=== PATIENT | female | born 1945 | race Asian ===

== ENCOUNTER 2017-06-11 13:02 | Inpatient (IN) | payer OTHER ==
[~2017-06-11] VITALS: Ht 165.1 cm; Wt 82.6 kg
--- NOTE | 2017-06-11 15:44 | ED DYSPNEA/ASTHMA COMPLAINT ---
History of Present Illness General Chief Complaint: Dyspnea (COPD, CHF, Other) Stated Complaint: SOB,PALPITATIONS Source: patient Exam Limitations: no limitations Vital Signs & Intake/Output Vital Signs & Intake/Output Vital Signs Date Time Temp Pulse Resp B/P B/P Pulse O2 O2 Flow FiO2 Mean Ox Delivery Rate 06/11 1712 97.1 06/11 1705 97.1 84 22 170/90 95 Nasal 2.0L Cannula 06/11 1608 89 06/11 1440 97.2 72 24 166/81 96 Room Air 06/11 1314 97.7 83 18 170/100 94 Room Air Allergies Coded Allergies: NO KNOWN ALLERGIES (02/12/12) Triage Note: 72 YO FEMALE TO TRIAGE C/O SOB AND PALPITATIONS SINCE YESTERDAY. DENIES CHEST/ABD APIN. PT NOTED WITH SLIGHT WHEEZE. STATES +DRY COUGH. RA SATS 94% Triage Nurses Notes Reviewed? yes Onset: Gradual Duration: day(s): Timing: multiple episodes today Activities at Onset: activity, rest Associated Symptoms: edema, weakness HPI: 72 year old female presents to the ED with shortness of breath for three days. She states that she has it at rest and upon exertion. Nothing makes it better. She endorses palpitations, dry cough, generalized weakness, edema, and recent travel to [place] (05/12/17). She denies orthopnea, chest pain, fever, chills, nightsweats, or history of cancer. She also had a mechnical fall due to loss of balance earlier today and she hurt her right arm. She denies lightheadedness, dizziness, head trauma, or current use of anticogulation. (Jose DE JESUS,Bart) Past History Travel History Traveled to [place] past 21 day No Medical History Any Pertinent Medical History? see below for history Neurological: NONE EENT: NONE Cardiovascular: hypertension Respiratory: NONE Gastrointestinal: NONE Hepatic: NONE Renal: NONE Musculoskeletal: NONE Psychiatric: NONE Endocrine: hypothyroidism Blood Disorders: NONE Cancer(s): NONE AUTO WINDER/Reproductive: NONE Surgical History Surgical History: none (left knee replacement 2015) Psychosocial History Who do you live with Spouse Services at Home None What is your primary language Monalisa Tobacco Use: Never used Daily Tobacco Use Amount/Type: =< 4 Cigarettes daily (none) ETOH Use: denies use Illicit Drug Use: denies illicit drug use Family History Hx Contributory? No (Bart Franklin) Review of Systems Review of Systems Constitutional: Denies: see HPI. EENTM: Reports: no symptoms. Respiratory: Reports: see HPI. Cardiovascular: Reports: see HPI. GI: Denies: abdominal pain, constipation, diarrhea, nausea, vomiting. Genitourinary: Reports: no symptoms. Musculoskeletal: Reports: no symptoms. Skin: Denies: no symptoms. Neurological/Psychological: Reports: no symptoms. Hematologic/Endocrine: Reports: no symptoms. Immunologic/Allergic: Reports: no symptoms. All Other Systems: Reviewed and Negative (Bart Franklin) Physical Exam Physical Exam General Appearance: alert, awake, moderate distress Head: atraumatic Eyes: Bilateral: normal appearance. Ears, Nose, Throat: normal ENT inspection Neck: normal inspection Respiratory: decreased breath sounds, respiratory distress (MILD) Cardiovascular: regular rate/rhythm, edema (1+ b/l pitted edema) Extremities: normal inspection, pedal edema (1+ BILATERAL) Neurologic/Psych: awake, alert, oriented x 3 Skin: intact, normal color Core Measures ACS in differential dx? Yes CVA/TIA Diagnosis No Sepsis Present: No Sepsis Focused Exam Completed? No (Bart Franklin) Progress Differential Diagnosis: asthma, AMI, bronchitis, CHF, COPD, pericarditis, pulmonary embolism, pneumonia, pneumothorax, rib fracture, unstable angina Plan of Care: Orders Procedure Date/time Status CHF Diet 06/12 B Active Misc Message 06/11 1712 Active ED Holding Orders 06/11 1712 Active Admit to inpatient 06/11 1712 Active Vital Signs 06/11 1712 Active Pathway - chart 06/11 1659 Active House Staff 06/11 1659 Active Code Status 06/11 1659 Active ECHOCARDIOGRAM 06/11 1659 Active Patient Data 06/11 1643 Active URINALYSIS 06/11 1642 Active Telemetry/Marketing Proposal Coordinator 06/11 1425 Active TROPONIN LEVEL 06/11 1425 Complete COMPREHENSIVE METABOLIC PANEL 06/11 1425 Complete CBC WITHOUT DIFFERENTIAL 06/11 1425 Complete B-TYPE NATRIURETIC PEP (BNP) 06/11 1425 Complete EKG 06/11 1303 Active TRC EVALUATION (GEN) 06/11 UNK Active Saline Lock 06/11 UNK Active CHF Core Measures 06/11 UNK Active Weight 06/11 UNK Active VTE Mechanical Prophylaxis 06/11 UNK Active Intake & Output 06/11 UNK Active Current Medications Sig/Nai Start time Last Medication Dose Stop Time Status Admin Heparin Sodium 5,000 UNIT Q8 06/11 2199 UNVr (Porcine) Acetaminophen 975 MG ONCE ONE 06/11 1714 AC 06/11 (Tylenol) 06/12 1715 1712 Laboratory Tests 06/11/17 1546: Anion Gap 7, Estimated GFR 21 L, BUN/Creatinine Ratio 10.4, Glucose 93, Calcium 8.5, Total Bilirubin 0.4, AST 14, ALT 20, Alkaline Phosphatase 117, Troponin I < 0.01, Klq-L-Yvtpkmqtzxy Pept 4520 H, Total Protein 6.4, Albumin 2.9 L, Globulin 3.5, Albumin/Globulin Ratio 0.8 L, CBC w Diff NO MAN DIFF REQ, RBC 2.92 L, MCV 88.8, MCH 29.8, MCHC 33.5, RDW 14.4, MPV 7.4, Gran % 67.9, Lymphocytes % 18.3 L, Monocytes % 10.0 H, Eosinophils % 3.1, Basophils % 0.7, Absolute Granulocytes 5.5, Absolute Lymphocytes 1.5, Absolute Monocytes 0.8 H, Absolute Eosinophils 0.3, Absolute Basophils 0.1 Diagnostic Imaging: Viewed by Me: Radiology Read. Discussed w/RAD: Radiology Read. Radiology Impression: PATIENT: ANGELA SAUER PRESENT AGE: 72 PATIENT ACCOUNT NO: [id number] : 43 LOCATION: [facility] ORDERING PHYSICIAN: Bart DE JESUS SERVICE DATE: 06/11/17 EXAM TYPE: RAD - XRY-CHEST XRAY, TWO VIEWS EXAMINATION: XR CHEST CLINICAL INFORMATION: Pain. Shortness of breath. COMPARISON: Chest radiograph dated 02/12/2012. TECHNIQUE: 2 views of the chest were obtained. FINDINGS: The cardiac silhouette is minimally enlarged. There is enlargement of the pulmonary vasculature and cephalization of the pulmonary vasculature. Findings are consistent with interstitial edema. No focal consolidation. No pneumothorax or pleural effusion. IMPRESSION: Interstitial pulmonary edema. No focal consolidation. DICTATED BY: Ramirez Covarrubias MD DATE/TIME DICTATED:06/11/171534 EXECUTIVE BUSINESS COACH:ANDRADE DATE/TIME TRANSCRIBED:06/11/171534 CONFIDENTIAL, DO NOT COPY WITHOUT APPROPRIATE AUTHORIZATION. <Electronically signed in Other Vendor System> SIGNED BY: Ramirez Covarrubias MD 06/11/17 9320 Initial ED EKG: normal sinus rhythm, rate (77) (Bart Franklin) Departure Departure Disposition: STILL A PATIENT Condition: Stable Clinical Impression Primary Impression: Acute exacerbation of CHF (congestive heart failure) Secondary Impressions: Acute kidney injury, Hyponatremia Referrals: Emmie Quintanilla MD (PCP/Family) Departure Forms: Customer Survey General Discharge Information Admission Note Spoke With: Ralph Peres MD Documentation of Exam: Documentation of any treatments & extenuating circumstances including Concerns Regarding Discharge (functional status, medication knowledge or non-compliance, living conditions, etc.) that warrant an admission rather than observation: Patient will require cardiac consultation. Echocardiogram. IV diuresis. Cardiac telemetry. Serial troponins. Medically not safe for discharge at this time. Supplemental oxygen. (Bart Franklin) PA/MANAGER OF SECURITY Co-Sign Statement Statement: ED Attending supervision documentation- [] I saw and evaluated the patient. I have also reviewed all the pertinent lab results and diagnostic results. I agree with the findings and the plan of care as documented in the PA's/MANAGER OF SECURITY's documentation. [X] I have reviewed the ED Record and agree with the PA's/MANAGER OF SECURITY's documentation. [] Additions or exceptions (if any) to the PAs/MANAGER OF SECURITY's note and plan are summarized below: [] (Melissa CASH,Nickolas Leon) Critical Care Note Critical Care Note Critical Care Time: 30-74 min (40) (Bart Franklin)
[2017-06-11 15:55] LABS: ABSOLUTE BASOPHIL COUNT 0.1 /CUMM (0.0-0.2); ABSOLUTE EOSINOPHIL COUNT 0.3 /CUMM (0.0-0.7); ABSOLUTE GRANULOCYTE CT 5.5 /CUMM (1.4-6.5); ABSOLUTE LYMPH COUNT 1.5 /CUMM (1.2-3.4); ABSOLUTE MONOCYTE COUNT 0.8 /CUMM (0.10-0.60); BASOPHIL % 0.7 % (0.0-2.0); EOSINOPHIL % 3.1 % (0-5); GRANULOCYTE % 67.9 % (42.2-75.2); MEAN CORPUSCULAR HGB 29.8 PG (27.0-31.0); MEAN CORPUSCULAR HGB CONC 33.5 G/DL (33.0-37.0); MEAN CORPUSCULAR VOLUME 88.8 FL (81.0-99.0); MEAN PLATELET VOLUME 7.4 FL (7.4-10.4); PLATELET COUNT 235 /CUMM (130-400); RBC DISTRIBUTION WIDTH 14.4 % (11.5-14.5); RED BLOOD CELL CT 2.92 /CUMM (4.20-5.40)
--- NOTE | 2017-06-11 16:08 | RADIOLOGY REPORT ---
EXAMINATION: XR SHOULDER, RIGHT XR ELBOW, RIGHT CLINICAL INFORMATION: Fall, pain COMPARISON: None TECHNIQUE: Four views of the right shoulder. 4 views of the right elbow. FINDINGS: Right shoulder: Glenohumeral alignment appears anatomic. There is cortical irregularity of the lateral scapula near the glenoid which is age-indeterminate. The acromioclavicular joint is intact with mild degenerative change. Right elbow: Alignment across the elbow is anatomic. No acute fracture is seen. There is mild spurring at the lateral epicondyle of the humerus. No significant effusion. IMPRESSION: 1. Right shoulder: Age-indeterminate cortical irregularity of the lateral scapula near the glenoid, which could be chronic though acute fracture is difficult to entirely exclude in the proper clinical setting; acuity may be better assessed with CT. 2. Right elbow: No acute findings.
--- NOTE | 2017-06-11 16:50 | History & Physical ---
Delvin CASH,[facility] 06/11/17 7837: General Information and HPI MD Statement: I have seen and personally examined ANGELA SAUER and documented this H&P. The patient is a 72 year old F who presented with a patient stated chief complaint of [shortness of breath]. Source of Information: patient, family Exam Limitations: clinical condition History of Present Illness: Most of the history is given by the patient's as the patient is short of breath. 72-year-old female with a past medical history of hypertension and hypothyroidism presenting for 4 days of shortness of breath. States that the shortness breath has been getting acutely progressively worse the past 2 days. States that it is worse with exertion. states that the patient is able to sleep flat but she is uncomfortable. States that she is having shortness of breath at rest. Also notes increased swelling of her lower extremities. Complains of dry cough for several months. States that she currently has some headaches associated with palpitations. The patient fell today on her right side and landed on her right upper extremities. States that she did not pass out nor did she hit her head. States that she does have back pain which is chronic. The back pain is improved with palpation. States that she has numbness of her right foot. She denies any fevers, chills, abdominal pain, changes in elimination, loss of function, Allergies/Medications Allergies: Coded Allergies: NO KNOWN ALLERGIES (02/12/12) Home Med list Labetalol HCl 200 MG TABLET 1 TAB PO QAM HEART HEALTH (Reported) Labetalol HCl 100 MG TABLET 1 TAB PO QPM HEART HEALTH (Reported) Levothyroxine Sodium 88 MCG TABLET 1 TAB PO DAILY SUPPLEMENT (Reported) Past History Travel History Traveled to [place] past 21 day No Medical History Neurological: NONE EENT: NONE Cardiovascular: hypertension Respiratory: NONE Gastrointestinal: NONE Hepatic: NONE Renal: NONE Musculoskeletal: NONE Psychiatric: NONE Endocrine: hypothyroidism Blood Disorders: NONE Cancer(s): NONE PARTS DELIVERY DRIVER/Reproductive: NONE Surgical History Surgical History: none (left knee replacement 2015) Past Family/Social History Psychosocial History Services at Home: None ETOH Use: denies use Illicit Drug Use: denies illicit drug use Review of Systems Review of Systems Constitutional: Reports: see HPI. Denies: chills, fever. Cardiovascular: Reports: edema, palpitations. Denies: chest pain. Respiratory: Reports: cough, short of breath. Denies: sputum production. GI: Reports: no symptoms. Genitourinary: Reports: no symptoms. Musculoskeletal: Reports: see HPI, back pain. Exam & Diagnostic Data Last 24 Hrs of Vital Signs/I&O Vital Signs Date Time Temp Pulse Resp B/P B/P Pulse O2 O2 Flow FiO2 Mean Ox Delivery Rate 06/11 1827 96.6 80 20 175/83 96 Nasal 2.0L Cannula 06/11 1751 97.4 06/11 1749 97.4 80 22 177/83 97 Nasal 2.0L Cannula 06/11 1712 97.1 06/11 1705 97.1 84 22 170/90 95 Nasal 2.0L Cannula 06/11 1608 89 06/11 1440 97.2 72 24 166/81 96 Room Air 06/11 1314 97.7 83 18 170/100 94 Room Air Intake & Output 06/11 1600 06/11 0800 06/11 0000 Intake Total 0 Output Total 0 Balance 0 Intake, Oral 0 Output, Urine 0 Patient 180 lb Weight Weight Reported by Patient Measurement Method Physical Exam General Appearance Alert, Oriented X3, Cooperative, Severe Distress, very short shallow breaths. Using accessory muscles. Unable to talk in complete sentences. HEENT PERRLA Cardiovascular Regular Rate, Normal S1, Normal S2 Lungs Clear to Auscultation, Normal Air Movement Abdomen Normal Bowel Sounds, Soft, No Tenderness Extremities 1+ lower extremity edema bilaterally, lower lumbar spinal pain improved with palpation Vascular 2+ radial pulses Assessment/Plan Assessment: 72-year-old female with a past medical history of hypertension and hypothyroidism presenting for 4 days of shortness of breath. #SOB CXR: Interstitial pulmonary edema. No focal consolidation. trop <0.01 ProBNP 4520 -Trend troponins and EKG X2 -Follow-up cardiology consult -f/u att recommendations #Fall Right shoulder: Age-indeterminate cortical irregularity of the lateral scapula near the glenoid, which could be chronic Right elbow: No acute findings. -pain control #htn -cont home labetalol #Hyponatremia NA 127 -cont monitoring BEP #hyperkalemia K5.5 1x kayexalate given -monitor bep #ckd CR 2.3 (at baseline) -cont to monitor. consider nephro consult #anemia? H/H 8.10/03 Baseline 02/07 -monitor for signs of bleeding -follow h/h #back pain Relieved with palpiation -rice sock -pain control #full code #dvt ppx - sc heparin As Ranked By This Provider Problem List: 1. CKD (chronic kidney disease) 2. Hyponatremia 3. Hyperkalemia 4. Fall 5. CHF (congestive heart failure) Core Measures/Misc (11/25) Acute Coronary Syndrome ACS Diagnosis: No Congestive Heart Failure Congestive Heart Failure Diagnosis Yes Cerebrovascular Accident CVA/TIA Diagnosis: No VTE (View Protocol) VTE Risk Factors Acute Medical Illness No Mechanical VTE Prophylaxis d/t Other No VTE Pharm Prophylaxis d/t NA PharmProphylax ordered Sepsis (View protocol) Sepsis Present: No Peter Zamora 06/11/17 1727: Resident Review Statement Resident Statement: examined this patient, discussed with equine internship, agreed with equine internship, discussed with family, reviewed EMR data (avail), discussed with nursing , discussed with case mgmt, reviewed images, amended to note Other Findings: Mrs. Mata is a 72 yo lady with PMHx. of hypothyroidism presented to ED with a c/o of SOB. Patient repeort that she felt SOB over the last 4 days which is getting very sever over the last 2 days, today she was leaning forward on the kitchen, she felt dizzy and fell on the right side with no LOC. She was complaining of cough over the last month, it's dry cough througout the day. Her SOB is at rest and exertion BUT more with exertion, associted with swelling of B/L LE. She has orthopnea but no PND. Patient had rt. knee surgery about 3 years ago, at that time she had heart evaluation with no abnormalities detected, she however, developed paroxysmal A.fib on perioperative period which switched back to SR, never been anticoagulated. She has CKD (Baseline unknown), she was told by her PCP that her creatinine is stable. At home she is only on Synthroid 88mcg daily and Labetalol 200mg at am and 100mg at pm. Will admitt the patient to telemetry floor for new onset CHF, acute on chronic kidney failure, daily weight, strict I's and O's, cardiology consult, she received 40mg IV Lasix at ED, will continue with 40mg IV daily, till the patient evaluated by applications scientist, will repeat labs tomorrow, if worsening kidney function consider nephrology consult (Last time she was evaluated by rn physician office was 1 year ago, she was didn't rememeber her rn physician office name), will repeat troponin and EKG at 9pm. Obtain record from her pcp about her baseline creatinine, will check TSH, T4, lipid panel, CHF diet, fluid restriction as she was noted to have hyponatremia, will give kayexalate for hyperkalemia. SC Heparin for DVT ppx Full code Ralph Peres MD 06/11/175: Attending MD Review Statement Attending Statement Attending MD Statement: examined this patient, discuss w/resident/PA/ABATTOIR MANAGER, agreed w/resident/PA/ABATTOIR MANAGER, reviewed EMR data (avail) Attending Assessment/Plan: Will admit for new onset CHF, IV Lasix, I/O, cardiology consult, echo, continue home meds, DVT PPx
[2017-06-11] MEDS ORDERED: LEVOTHYROXINE88 MCG PO (19:20)
[2017-06-11] MEDS ORDERED: LABETALOL HCL200 M1 PO (19:21)
[2017-06-11] MEDS ORDERED: LABETALOL HCL100 M1 PO (19:21)
[2017-06-12 05:23] LABS: ABSOLUTE BASOPHIL COUNT 0.1 /CUMM (0.0-0.2); ABSOLUTE EOSINOPHIL COUNT 0.3 /CUMM (0.0-0.7); ABSOLUTE LYMPH COUNT 1.4 /CUMM (1.2-3.4); ABSOLUTE MONOCYTE COUNT 0.7 /CUMM (0.10-0.60); BASOPHIL % 1.2 % (0.0-2.0); EOSINOPHIL % 4.9 % (0-5); GRANULOCYTE % 61.4 % (42.2-75.2); HEMATOCRIT 25.1 % (37-47); MEAN CORPUSCULAR HGB 29.6 PG (27.0-31.0); MEAN CORPUSCULAR HGB CONC 32.6 G/DL (33.0-37.0); MEAN CORPUSCULAR VOLUME 90.8 FL (81.0-99.0); MEAN PLATELET VOLUME 7.6 FL (7.4-10.4); PLATELET COUNT 217 /CUMM (130-400); RBC DISTRIBUTION WIDTH 14.8 % (11.5-14.5); RED BLOOD CELL CT 2.77 /CUMM (4.20-5.40); WHITE BLOOD CELL COUNT 6.5 /CUMM (4.8-10.8)
[2017-06-12 06:00] VITALS: BP 136/72
--- NOTE | 2017-06-12 07:17 | PN- Housestaff ---
Delvin CASH,[facility] 06/12/17 0716: Subjective Follow-up For: SOB CHF hyperkalemia fall ckd hyponatremia Tele-Events Since Last Visit: NSR 65-93 Subjective: No acute evnets overnight. States SOB is better. Still haveing backpain. Review of Systems Constitutional: Reports: see HPI. Objective Last 24 Hrs of Vital Signs/I&O Vital Signs Date Time Temp Pulse Resp B/P B/P Pulse O2 O2 Flow FiO2 Mean Ox Delivery Rate 06/12 0903 88 160/88 06/12 0600 99.0 76 20 136/72 94 06/12 0000 Nasal 2.0L Cannula 06/11 2231 78 130/68 06/11 1958 96 Nasal 2.0L Cannula 06/11 195 Nasal 2.0L Cannula 06/11 1827 96.6 80 20 175/83 96 Nasal 2.0L Cannula 06/11 1751 97.4 06/11 1749 97.4 80 22 177/83 97 Nasal 2.0L Cannula 06/11 1712 97.1 06/11 1705 97.1 84 22 170/90 95 Nasal 2.0L Cannula 06/11 1608 89 06/11 1440 97.2 72 24 166/81 96 Room Air 06/11 1314 97.7 83 18 170/100 94 Room Air Intake & Output 06/12 1600 06/12 0800 06/12 0000 Intake Total 110 400 Output Total 780 Balance 110 -380 Intake, IV 10 Intake, Oral 100 400 Output, Urine 780 Patient 187 lb Weight Weight Bed scale Measurement Method Physical Exam General Appearance: Alert, Oriented X3, Cooperative, Mild Distress, mild resp distress, grimacing with movement from chronic back pain Cardiovascular: Regular Rate, Normal S1, Normal S2 Lungs: basilar crackles Abdomen: Normal Bowel Sounds, Soft, No Tenderness Extremities: 1+ LLE, trace RLE Vascular: 2+ radial pulses Current Medications: Current Medications Sig/Nai Start time Last Medication Dose Route Stop Time Status Admin Acetaminophen 975 MG ONCE ONE 06/11 1715 DC 06/11 PO 06/11 1716 1712 Acetaminophen 0 .STK-MED ONE 06/11 1713 DC PO Albuterol Sulfate 3 ML ONCE ONE 06/11 1600 DC 06/11 INH 06/11 1601 1559 Furosemide 40 MG DAILY 06/12 1000 AC 06/12 IV 0903 Furosemide 0 .STK-MED ONE 06/11 1614 DC IV Furosemide 40 MG ONCE ONE 06/11 1600 DC 06/11 IV 06/11 1601 1630 Heparin Sodium 5,000 UNIT Q8 06/11 2200 AC 06/12 (Porcine) SC 0653 Ipratropium Sully 2.5 ML ONCE ONE 06/11 1600 DC 06/11 INH 06/11 1601 1559 Labetalol HCl 200 MG QAM 06/12 1000 AC 06/12 PO 0903 Labetalol HCl 100 MG QPM 06/11 2200 AC 06/11 PO 2231 Levothyroxine Sodium 0.088 MG DAILY 06/12 1000 AC 06/12 PO 0902 Nitroglycerin 0 .STK-MED ONE 06/11 1714 DC TOP Nitroglycerin 0 .STK-MED ONE 06/11 1628 DC SL Nitroglycerin 0.4 MG ONCE ONE 06/11 1615 DC 06/11 SL 06/11 1616 1630 Nitroglycerin 0.5 GM ONCE ONE 06/11 1615 DC 06/11 TOP 06/11 1616 1712 Ondansetron HCl 0 .STK-MED ONE 06/11 1627 DC .ROUTE Ondansetron HCl 4 MG ONCE ONE 06/11 1615 DC 06/11 IV 06/11 1616 1630 Sodium Polystyrene 0 .STK-MED ONE 06/11 1811 DC Sulfonate .ROUTE Sodium Polystyrene 60 ML ONCE ONE 06/11 1800 DC 06/11 Sulfonate PO 06/11 1801 1809 Last 24 Hrs of Lab/Kade Results Last 24 Hrs of Labs/Mics: Laboratory Tests 06/12/17 0420: Troponin I < 0.01 06/12/17 0420: Anion Gap 10, Estimated GFR 20 L, BUN/Creatinine Ratio 10.4, CBC w Diff NO MAN DIFF REQ, RBC 2.77 L, MCV 90.8, MCH 29.6, MCHC 32.6 L, RDW 14.8 H, MPV 7.6, Gran % 61.4, Lymphocytes % 21.5, Monocytes % 11.0 H, Eosinophils % 4.9, Basophils % 1.2, Absolute Granulocytes 4.0, Absolute Lymphocytes 1.4, Absolute Monocytes 0.7 H, Absolute Eosinophils 0.3, Absolute Basophils 0.1 06/11/172211: Troponin I < 0.01 06/11/17 1700: Urinalysis LIGHT H, Urine Color YEL, Urine Clarity CLEAR, Urine pH 6.0, Ur Specific [place] 1.015, Urine Protein >=300 H, Urine Ketones NEG, Urine Nitrite NEG, Urine Bilirubin NEG, Urine Urobilinogen 0.2, Ur Leukocyte Esterase NEG, Ur Microscopic SEDIMENT EXAMINED, Urine RBC 1-3, Urine WBC 1-3 H, Ur Epithelial Cells MOD H, Urine Bacteria RARE H, Urine Mucus FEW, Urine Hemoglobin SMALL H , Urine Glucose NEG 06/11/17 1546: Anion Gap 7, Estimated GFR 21 L, BUN/Creatinine Ratio 10.4, Glucose 93, Calcium 8.5, Total Bilirubin 0.4, AST 14, ALT 20, Alkaline Phosphatase 117, Troponin I < 0.01, Pko-B-Ynntaclmumk Pept 4520 H, Total Protein 6.4, Albumin 2.9 L, Globulin 3.5, Albumin/Globulin Ratio 0.8 L, TSH 4.650 H, Thyroxine (T4) 7.8, CBC w Diff NO MAN DIFF REQ, RBC 2.92 L, MCV 88.8, MCH 29.8, MCHC 33.5, RDW 14.4 , MPV 7.4, Gran % 67.9, Lymphocytes % 18.3 L, Monocytes % 10.0 H, Eosinophils % 3.1, Basophils % 0.7, Absolute Granulocytes 5.5, Absolute Lymphocytes 1.5, Absolute Monocytes 0.8 H, Absolute Eosinophils 0.3, Absolute Basophils 0.1 Assessment/Plan Assessment: 72-year-old female with a past medical history of hypertension and hypothyroidism presenting for 4 days of shortness of breath. #SOB CXR: Interstitial pulmonary edema. No focal consolidation. trop <0.01x3 ProBNP 4520 TSH 4.65 (high), T4 7.8 -dopppler u/s given hx of recent travel, acute onset of chf/sob, disproportionate LE edema -cont IV lasix -f/u echo -f/u cards consult #anemia? vs acute blood loss H/H 8.726 -> 8.2/25.1 Baseline 02/07 Fe 36,TBC 259, Ferritin 122 -f/u B12, folate, reticulocyte count, serum haptoglobin, epo level -type and cross -hemooccult -monitor for signs of bleeding -follow h/h #Fall Right shoulder: Age-indeterminate cortical irregularity of the lateral scapula near the glenoid, which could be chronic Right elbow: No acute findings. -pain control #ckd CR 2.4 (at baseline) -Renal ultrasound was ordered however received call from radiology stating that she had a renal ultrasound done yesterday. Impression was increased echogenicity of bilateral kidneys with cortical thinning -Obtain renal ultrasound images -f/u 24-hour urine, spot protein/creatinine -Follow-up lipid panel -Follow-up nephrology consult -cont to monitor. consider nephro consult #htn -Stop Lasix -Start hydralazine 3 times a day, nitroglycerin patch -cont home labetalol #Hyponatremia NA 127 -> 129 -cont monitoring BEP #hyperkalemia K5.5 ->4.9 1x kayexalate given History of hyperkalemia from ESTHELA inhibitor -monitor bep -We'll not start ESTHELA inhibitor given her history #back pain Chronic, relieved with palpiation -rice sock -pain control #full code #dvt ppx - sc heparin Problem List: 1. Shortness of breath 2. CHF (congestive heart failure) 3. Fall 4. Hyperkalemia 5. Hyponatremia 6. CKD (chronic kidney disease) 7. Anemia Pain Ratin Pain Location: low back Pain Goal: Pain 4 or less Pain Plan: pain pathway Tomorrow's Labs & Rationales: cbc bep Ralph Peres MD 06/12/17 1216: Attending MD Review Statement Attending Statement Attending MD Statement: examined this patient, discuss w/resident/PA/COSTUME MISTRESS, agreed w/resident/PA/COSTUME MISTRESS, reviewed EMR data (avail) Attending Assessment/Plan: 72F PMH HTN, hypothyroidism, CKD stage 4 presenting with several days of progressive shortness of breath, with mild bilateral leg swelling and pulmonary vascular congestion on CXR, found to have new onset CHF. Patient feels better today. She feels as if her breathing is better. She has trace LE edema, R>L, and bibasilar crackles on exam. She had mild diuresis yesterday. 1. New onset acute CHF 2. Dyspnea on exertion 3. CKD Stage 4 Plan - Continue on telemetry - Obtain LE doppler to rule out DVT (patient had also traveled to [place] recently ) - Continue Lasix 40mg IV BID - Monitor electrolytes and renal function - Cardiology and nephrology consults - Obtain spot urine protein/creatinine - Renal ultrasound - Echocardiogram - Continue Labetalol - Start Lisinopril 2.5mg daily - DVT PPx
--- NOTE | 2017-06-12 12:17 | Admission Certification ---
Admission Certification Certification Statement - As attending physician, I certify that at the time of - admission, based on clinical presentation, severity of - symptoms, need for further diagnostic testing and - therapeutic interventions, and risk of adverse outcomes - without in-hospital treatment, in my clinical assessment, - this patient requires an acute hospital stay for a minimum - of two nights or longer. I have also considered psychsocial - factors such as support system, advanced age, financial - issues, cognitive issues, and failed out-patient treatments, - past re-admission history, safety of patient, and lack of - compliance as applicable. Specific rationale supporting this admission is: New onset acute CHF with worsening renal function
[2017-06-12 13:52] VITALS: BP 164/70
--- NOTE | 2017-06-12 14:08 | Cons- Cardiology ---
General Information and HPI Consulting Request Date of Consult: 06/12/17 Requested By: Ralph Peres MD History of Present Illness: Adolfo is a 72 year old female with history of hypertension who first noticed some shortness of breath about one week ago. This past Saturday, her breathing became much worse and yesterday she presented to the [facility] ER upon the advice of her primary care physician. The patient reports weakness and a non -productive cough with wheezing. She denies orthopnea. At her baseline, she can walk at a normal pace and do her housework without experiencing any chest pain, pressure or tightness. Higher levels of activity will result in palpitations. The patient was hypertensive on admission with an elevated creatinine, low sodium and severe anemia. Her chest X-ray showed some pulmonary vascular congestion. Allergies/Medications Allergies: Coded Allergies: NO KNOWN ALLERGIES (02/12/12) Home Med List: Labetalol HCl 200 MG TABLET 1 TAB PO QAM HEART HEALTH (Reported) Labetalol HCl 100 MG TABLET 1 TAB PO QPM HEART HEALTH (Reported) Levothyroxine Sodium 88 MCG TABLET 1 TAB PO DAILY SUPPLEMENT (Reported) Review of Systems Review of Systems: Knee discomfort. Past History Travel History Traveled to [place] past 21 day No Medical History Blood Transfusion Hx: No Neurological: NONE EENT: NONE, cataracts Cardiovascular: AFIB, hypertension Respiratory: NONE Gastrointestinal: NONE Hepatic: NONE Renal: CKD Musculoskeletal: fracture, rheumatoid arthritis Psychiatric: NONE Endocrine: hypothyroidism Blood Disorders: NONE Cancer(s): NONE SPECIMEN ACCESSIONER/Reproductive: NONE Surgical History Surgical History: LEFT KNEE REPL. (left knee replacement 2014) Family History Family History Reviewed? Mother: CHF after age 60 Psychosocial History Where Do You Live? Home Services at Home: None Smoking Status: Never Smoked ETOH Use: denies use Illicit Drug Use: denies illicit drug use Exam & Diagnostic Data Vital Signs and I&O Vital Signs Date Time Temp Pulse Resp B/P B/P Pulse O2 O2 Flow FiO2 Mean Ox Delivery Rate 06/12 1344 95 Nasal 2.0L Cannula 06/12 0903 88 160/88 06/12 0800 94 Nasal 2.0L Cannula 06/12 06 99.0 76 20 136/72 94 06/12 0000 Nasal 2.0L Cannula 06/11 2231 78 130/68 06/11 1957 96 Nasal 2.0L Cannula 06/12 1951 Nasal 2.0L Cannula 06/11 1827 96.6 80 20 175/83 96 Nasal 2.0L Cannula 06/11 1751 97.4 06/11 1749 97.4 80 22 177/83 97 Nasal 2.0L Cannula 06/11 1712 97.1 06/11 1705 97.1 84 22 170/90 95 Nasal 2.0L Cannula 06/11 1608 89 06/11 1440 97.2 72 24 166/81 96 Room Air Intake & Output 06/12 1600 06/12 0806/12 0000 06/11 1600 06/11 0800 06/11 0000 Intake Total 110 400 0 Output Total 780 0 Balance 110 -380 0 Intake, IV 10 Intake, Oral 100 400 0 Output, Urine 780 0 Patient 187 lb 180 lb Weight Weight Bed scale Reported by Patient Measurement Method Physical Exam: General: WD/WN female in NAD; alert and oriented x 3 HEENT: NC/AT, PERRL, EOMI Neck: no JVD, no carotid bruit Heart: RRR with 2/6 systolic murmur Lungs: scant crackles at the bases bilaterally Abdomen: soft, obese, NT, +ve bowel sounds Extremities: no edema Assessment/Plan Assessment/Plan * This patient has shortness of breath that is likely multifactorial and due to a combination of anemia, uncontrolled hypertension and a cough and wheezing that is likely related to a viral syndrome. If there is some decompensated CHF it is minor and I would be reluctant to overdiurse this patient in the setting of her worsening renal function. I suspect that the renal insufficiency is due to longstanding hypertension and I would recommend a nephrology consult. Obtain a 24 hour urine to assess for protein. Check a lipid profile. * In regard to the patient's renal insufficiency and hypertension I would begin hydralazine 25mg TID and titrate up as necessary to decrease afterload and lower blood pressure. Continue Labetolol 200mg BID. Add a NTG patch at 0.4mg/hour to decreased pre-load. No diuretic for now although it will likely be helpful once the patient's creatinine returns to her baseline. * I suspect that this patient has anemia related to her renal dysfunction. She should have a complete anemia workup to assess the cause of her anemia which may well be a cause of her CHF. Please check irons studies, B12, folate, serum haptoglobin and a reticulocyte count. Follow her CBC. * Will follow up on her echo results. Consult Acknowledgment - Thank you for your consult request.
--- NOTE | 2017-06-12 15:39 | ULTRASOUND REPORT ---
EXAMINATION: US TRIPLEX LOWER EXTREMITY, LEFT CLINICAL INFORMATION: Left lower extremity swelling. COMPARISON: None TECHNIQUE: Color-flow triplex imaging with spectral analysis and compression Doppler were performed on the lower extremity. FINDINGS: Respiratory variation, normal compression and augmented flow are noted throughout the lower extremity. The visualized common femoral vein, superficial femoral vein, profunda femoral vein, popliteal vein and midcalf peroneal and posterior tibial venous segments show no evidence of deep venous thrombosis. There is no Humphrey's cyst. IMPRESSION: No evidence of deep venous thrombosis involving the lower extremity.
--- NOTE | 2017-06-12 18:50 | ECHOCARDIOGRAM REPORT ---
ANGELA SAUER Age: 72 : 1945 Gender: F Exam Date: 06/11/2017 18:54 Exam Location: ER Ht (in): 65 Wt (lb): 180 BSA: 1.96 BP: 175 / 83 Ordering Physician: Peter Benedict MD Referring Physician: Peter Benedict MD Technologist: Lidia Casas RDCS Room Number: [id number] Indications: SHORTNESS OF BREATH Rhythm: Sinus Technical Quality: good FINDINGS Left Ventricle Normal left ventricular size with mild left ventricular hypertrophy. Normal systolic function with no obvious regional wall motion abnormalities. Normal left ventricular diastolic filling pattern for age. The ejection fraction is visually estimated at 60%. Right Ventricle The right ventricle is normal in size and function. Right Atrium The right atrium is normal in size. Left Atrium The left atrium is normal in size. The interatrial septum is intact. Mitral Valve The mitral valve is normal in structure and function. There is mild to moderate mitral regurgitation. Aortic Valve Structurally normal aortic valve without significant sclerosis or stenosis. There is mild aortic regurgitation. Tricuspid Valve The tricuspid valve is normal in structure and function. There is mild to moderate tricuspid regurgitation. Pulmonary artery systolic pressure is mildly elevated to 36mmHg. Pulmonic Valve Structurally normal pulmonic valve. There is trace pulmonic regurgitation. Pericardium Normal pericardium without effusion. No pleural effusion. Great Vessels Normal aortic root dimension. The aortic arch and great vessels are well seen and are normal. CONCLUSIONS 1. Normal EF of 60%. 2. Mild left ventricular hypertrophy. 3. Mild to moderate mitral regurgitation. 4. Mild to moderate tricuspid regurgitation. 5. Mild aortic insufficiency. 6. Trace pulmonic insufficiency. Mendel Parr M.D. (Electronically Signed) Final Date: 12 June 2017 18:50 MEASUREMENTS (Male / Female) Normal Values 2D ECHO LV Diastolic Diameter PLAX 3.5 cm 4.2 - 5.9 / 3.9 - 5.3 cm LV Systolic Diameter PLAX 2.3 cm 2.1 - 4.0 cm LV Fractional Shortening PLAX 34.3 % 25 - 46 % LV Ejection Fraction 2D Teich 64.4 % IVS Diastolic Thickness 1.4 cm LVPW Diastolic Thickness 1.4 cm LV Relative Wall Thickness 0.8 RV Internal Dim ED PLAX 1.8 cm 1.9 - 3.8 cm LVOT Diameter 2.0 cm Aortic Root Diameter 3.1 cm LA Systolic Diameter LX 4.1 cm 3.0 - 4.0 / 2.7 - 3.8 cm LA Volume 39.0 cm 18 - 58 / 22 - 52 cm Ascending Aorta Diameter 3.0 cm DOPPLER AV Peak Velocity 152.0 cm/s AV Peak Gradient 9.2 mmHg AV Mean Velocity 103.0 cm/s AV Mean Gradient 5.0 mmHg AV Velocity Time Integral 34.4 cm AI Deceleration Catron 432.0 cm/s AI Peak Velocity 412.0 cm/s AI Pressure Half Time 279.0 ms AI Peak Gradient 67.9 mmHg LVOT Peak Velocity 127.0 cm/s LVOT Peak Gradient 6.5 mmHg LVOT Mean Velocity 85.8 cm/s LVOT Mean Gradient 3.0 mmHg LVOT Velocity Time Integral 29.3 cm LVOT Stroke Volume 92.0 cm AV Area Cont Eq vti 2.7 cm AV Area Cont Eq pk 2.6 cm MV Peak Velocity 153.0 cm/s MV Peak Gradient 9.4 mmHg MV Mean Velocity 90.9 cm/s MV Mean Gradient 4.0 mmHg Mitral E Point Velocity 133.0 cm/s Mitral A Point Velocity 133.0 cm/s Mitral E to A Ratio 1.0 MV PHT Velocity 164.0 cm/s MV Deceleration Catron 680.0 cm/s MV Pressure Half Time 72.4 ms MV Area PHT 3.0 cm MV Deceleration Time 211.0 ms TR Peak Velocity 293.0 cm/s TR Peak Gradient 34.3 mmHg Right Atrial Pressure 5.0 mmHg Pulmonary Artery Systolic Pressu 39.3 mmHg Right Ventricular Systolic Press 39.3 mmHg PV Peak Velocity 124.0 cm/s PV Peak Gradient 6.2 mmHg PV Mean Velocity 87.6 cm/s PV Mean Gradient 4.0 mmHg PV Velocity Time Integral 31.3 cm LV E' Lateral Velocity 6.8 cm/s Mitral E to LV E' Lateral Ratio 19.6 LV E' Septal Velocity 8.0 cm/s Mitral E to LV E' Septal Ratio 16.6
[2017-06-12 22:24] VITALS: BP 124/76
[2017-06-13 06:48] VITALS: BP 122/74
[2017-06-13 08:06] LABS: ABSOLUTE BASOPHIL COUNT 0.1 /CUMM (0.0-0.2); ABSOLUTE GRANULOCYTE CT 4.1 /CUMM (1.4-6.5); ABSOLUTE LYMPH COUNT 1.2 /CUMM (1.2-3.4)
[2017-06-13 08:43] LABS: ABSOLUTE EOSINOPHIL COUNT 0.3 /CUMM (0.0-0.7); ABSOLUTE MONOCYTE COUNT 0.7 /CUMM (0.10-0.60); BASOPHIL % 0.9 % (0.0-2.0); GRANULOCYTE % 63.8 % (42.2-75.2); HEMATOCRIT 22.1 % (37-47); MEAN CORPUSCULAR HGB CONC 33.4 G/DL (33.0-37.0); MEAN CORPUSCULAR VOLUME 89.9 FL (81.0-99.0); MEAN PLATELET VOLUME 7.8 FL (7.4-10.4); PLATELET COUNT 226 /CUMM (130-400); RBC DISTRIBUTION WIDTH 14.1 % (11.5-14.5); RED BLOOD CELL CT 2.46 /CUMM (4.20-5.40); WHITE BLOOD CELL COUNT 6.4 /CUMM (4.8-10.8)
--- NOTE | 2017-06-13 09:20 | PN- Housestaff ---
Delvin CASH,[facility] 06/13/17 0920: Subjective Follow-up For: SOB CHF hyperkalemia fall ckd hyponatremia Tele-Events Since Last Visit: NSR 6374 Tachycardic episode to 170s PACs Subjective: No acute events overnight. Patient states that she had very bad cough last night and some wheezing. Review of Systems Constitutional: Reports: see HPI. Objective Last 24 Hrs of Vital Signs/I&O Vital Signs Date Time Temp Pulse Resp B/P B/P Pulse O2 O2 Flow FiO2 Mean Ox Delivery Rate 06/13 1431 97.6 69 16 160/82 93 Nasal 1.0L Cannula 06/13 1206 92 Nasal 1.0L Cannula 06/13 1200 72 140/64 06/13 1101 72 140/64 06/13 0800 94 Nasal 1.0L Cannula 06/13 0648 98.0 72 18 122/74 93 06/12 2224 97.6 75 20 124/76 95 06/12 2156 80 124/76 06/12 2155 80 124/76 06/12 2041 Nasal 1.0L Cannula 06/12 1600 95 Nasal 1.0L Cannula 06/12 1548 98.2 80 19 164/70 Intake & Output 06/13 1600 06/13 0800 04/ 0000 Intake Total 500 360 240 Output Total 100 650 325 Balance 400 -290 -85 Intake, Oral 500 360 240 Number 0 Bowel Movements Output, Urine 100 650 325 Patient 183 lb Weight Physical Exam General Appearance: Alert, Oriented X3, Cooperative Cardiovascular: Regular Rate, Normal S1, Normal S2 Lungs: Clear to Auscultation, Normal Air Movement Abdomen: diffuse lower abdominal pain Extremities: b/l lower extremity 1+ edema Vascular: 2+ radial pulses Current Medications: Current Medications Sig/Nai Start time Last Medication Dose Route Stop Time Status Admin Acetaminophen 500 MG Q6P PRN 06/12 1545 AC 06/13 PO 0909 Azithromycin 500 MG 1500 06/13 1500 AC Dextrose/Water 250 ML IV 06/17 1559 Benzonatate 100 MG TID 06/13 1000 AC 06/13 PO 1100 Ferrous Sulfate 325 MG 1400 06/12 1400 AC 04/05 PO 1400 Guaifenesin/Codeine 10 ML Q4P PRN 06/13 0245 AC 04/05 Phosphate PO 1109 Heparin Sodium 5,000 UNIT Q8 06/11 2200 AC 06/13 (Porcine) SC 1400 Hydralazine HCl 25 MG TID 06/12 1600 DC 06/12 PO 2155 Labetalol HCl 200 MG QAM 06/12 1000 AC 06/13 PO 1101 Labetalol HCl 100 MG QPM 06/11 2200 AC 06/12 PO 2156 Levothyroxine Sodium 0.088 MG DAILY 06/12 1000 AC 06/13 PO 0928 Lidocaine 1 PAT Q24H 06/12 1535 AC 06/12 EXT 1704 Lisinopril 2.5 MG DAILY 06/13 1000 AC 06/13 PO 1200 Nitroglycerin 0.4 MG Q24H 06/12 1600 AC 06/12 TOP 1548 Non-Formulary 1 UNIT 0730,1130,1630 06/13 1630 AC Medication ANY Patient Medication 1 ED ONE ONE 06/13 09 DC 06/13 Teaching ED 06/13 0931 1201 Prednisone 20 MG DAILY 06/13 1000 AC 06/13 PO 06/15 2300 1201 Last 24 Hrs of Lab/Kade Results Last 24 Hrs of Labs/Mics: Laboratory Tests 06/13/17 1050: Urinalysis LIGHT H, Urine Color YEL, Urine Clarity CLEAR, Urine pH 6.0, Ur Specific Polk 1.015, Urine Protein 100 H, Urine Ketones NEG, Urine Nitrite NEG, Urine Bilirubin NEG, Urine Urobilinogen 0.2, Ur Leukocyte Esterase SMALL H , Ur Microscopic SEDIMENT EXAMINED, Urine RBC RARE, Urine WBC 15-25 H, Ur Epithelial Cells FEW, Urine Bacteria FEW H, Urine Mucus FEW, Urine Hemoglobin TRACE-LYSED, Urine Glucose NEG 06/13/17 0652: Anion Gap 9, Estimated GFR 17 L, BUN/Creatinine Ratio 10.7, Triglycerides 110, Cholesterol 167, LDL Cholesterol, Calc 94, HDL Cholesterol 51, Cholesterol/HDL Ratio 3, CBC w Diff NO MAN DIFF REQ, RBC 2.46 L, MCV 89.9, MCH 30.0, MCHC 33.4, RDW 14.1, MPV 7.8, Gran % 63.8, Lymphocytes % 18.8 L, Monocytes % 11.5 H, Eosinophils % 5.0, Basophils % 0.9, Absolute Granulocytes 4.1, Absolute Lymphocytes 1.2, Absolute Monocytes 0.7 H, Absolute Eosinophils 0.3, Absolute Basophils 0.1 Microbiology 06/13 1050 NASOPHARYN: Influenza Virus A & B Rapid Smear - COMP Assessment/Plan Assessment: 72-year-old female with a past medical history of hypertension and hypothyroidism presenting for 4 days of shortness of breath. #SOB 2/2 to most likely CHF CXR: Interstitial pulmonary edema. No focal consolidation. trop <0.01x3 ProBNP 4520 TSH 4.65 (high), T4 7.8 Doppler ultrasound negative for DVT Rapid flu negative -Continue Tessalon Perles for cough -Prednisone 20 and asked 3 days -Follow-up repeat chest x-ray -Discontinue Lasix for worsening CKD -Start azithromycin 5 days -f/u echo -Continue cardiology recommendations #anemia? vs acute blood loss H/H 8.7/ -> 7.4/22.1 Baseline 02/07 Fe 36,TBC 259, Ferritin 122 B12 >1000, folate normal, -reticulocyte count, serum haptoglobin, -consider epo level -type and cross -hemooccult -monitor for signs of bleeding -follow h/h -goal hgb >7 #Fall Right shoulder: Age-indeterminate cortical irregularity of the lateral scapula near the glenoid, which could be chronic Right elbow: No acute findings. -pain control #ckd CR 2.8 (2.4 at baseline) Previous renal ultrasound:1. Both kidneys demonstrate increased parenchymal echogenicity and cortical thinning, most consistent with medical renal disease. 2. No renal calculi or hydronephrosis bilaterally. 3. Small bilateral renal cysts. Lipid panel normal -f/u 24-hour urine, spot protein/creatinine -Follow-up nephrology consult #htn -Stop Lasix due to REGULO -Stop hydralazinef or facial swelling -add lisinopril -cont nitroglycerin patch -cont home labetalol #facial swelling -Stop hydralazine -Continue lemon sours for possible parotiditis #Hyponatremia NA 127 -> 129 -> 126 -f/u nephro consult -cont monitoring BEP #hyperkalemia K5.5 ->4.9 -> 4.7 1x kayexalate given History of hyperkalemia from ESTHELA inhibitor -monitor bep #back pain Chronic, relieved with palpiation -rice sock -pain control #full code #dvt ppx - sc heparin Problem List: 1. Anemia 2. CKD (chronic kidney disease) 3. Hyponatremia 4. CHF (congestive heart failure) 5. Shortness of breath Pain Ratin Pain Location: none Pain Goal: Pain 4 or less Pain Plan: pain pathway Tomorrow's Labs & Rationales: cbc bep haptoglobin retic count Ralph Peres MD 06/13/17 1144: Attending MD Review Statement Attending Statement Attending MD Statement: examined this patient, discuss w/resident/PA/FIELD MARKETING SPECIALIST, agreed w/resident/PA/FIELD MARKETING SPECIALIST, reviewed EMR data (avail) Attending Assessment/Plan: 72F PMH HTN, hypothyroidism, CKD stage 4 presenting with several days of progressive shortness of breath, with mild bilateral leg swelling and pulmonary vascular congestion on CXR, found to have new onset CHF. Still appears ill, still wheezing with cough, feels worse than yesterday. Now has left sided facial swelling without evidence of neuro involvement. 1. New onset acute CHF 2. Dyspnea on exertion 3. CKD Stage 4 Plan - Continue on telemetry - Discontinue Lasix - Send rapid flu - Repeat CXR - Start Azithromycin x 5 days - Discontinue Hydralazine due to facial swelling. Can start Lisinopril if hypertensive - Monitor electrolytes and renal function - Cardiology and nephrology consults - Obtain spot urine protein/creatinine - Renal ultrasound - Continue Labetalol - DVT PPx
[2017-06-13 14:31] VITALS: BP 160/82
--- NOTE | 2017-06-13 18:05 | PN- Cardiology ---
Subjective Subjective: * No chest discomfort. The patient is lying flat and has very minimal shortness of breath although she does complain of a non-productive cough and nausea. * Normal EF on echo with normal RV pressures. Mild to moderate MR and TR. * creatinine 2.8 and sodium 128 * severe anemia persists without appropriate rise in reticulocyte count Objective Vital Signs and I&Os Vital Signs Date Time Temp Pulse Resp B/P B/P Pulse O2 O2 Flow FiO2 Mean Ox Delivery Rate 06/13 1600 Nasal 1.0L Cannula 06/13 1431 97.6 69 16 160/82 93 Nasal 1.0L Cannula 06/13 1206 92 Nasal 1.0L Cannula 06/13 1200 72 140/64 06/13 1101 72 140/64 06/13 0800 94 Nasal 1.0L Cannula 06/13 0648 98.0 72 18 122/74 93 06/12 2224 97.6 75 20 124/76 95 06/12 2156 80 124/76 06/12 2155 80 124/76 06/12 2041 Nasal 1.0L Cannula Intake & Output 06/13 0000 06/12 1600 06/12 0000 Intake Total 500 360 240 480 110 400 Output Total 100 650 325 800 780 Balance 400 -290 -85 -320 110 -380 Intake, IV 10 Intake, Oral 500 360 240 480 100 400 Number 0 1 Bowel Movements Output, Urine 100 650 325 800 780 Patient 183 lb 187 lb Weight Weight Bed scale Measurement Method Physical Exam: General: WD/WN female in NAD; alert and oriented x 3 HEENT: NC/AT, PERRL, EOMI Neck: no JVD, no carotid bruit Heart: RRR with 2/6 systolic murmur Lungs: scant crackles at the left base Abdomen: soft, obese, NT, +ve bowel sounds Extremities: no edema Assessment/Plan Assessment/Plan * This patient has shortness of breath that is likely multifactorial and due to a combination of anemia, uncontrolled hypertension and a cough with wheezing that is likely related to a viral syndrome. Would also consider Mycoplasma pneumoniae as this is associated with hyponatremia. If there is some decompensated CHF it is minor and I would be reluctant to overdiurse this patient in the setting of her worsening renal function. I suspect that the renal insufficiency is due to longstanding hypertension and I would recommend a nephrology consult. Obtain a 24 hour urine to assess for protein. Check a lipid profile. * In regard to the patient's renal insufficiency and hypertension I would begin hydralazine 25mg TID and titrate up as necessary to decrease afterload and lower blood pressure. Continue Labetolol 200mg BID. Add a NTG patch at 0.4mg/hour to decreased pre-load. No diuretic for now although it will likely be helpful once the patient's creatinine returns to her baseline. * I suspect that this patient has anemia related to her renal dysfunction. Her reticulocyte count is inappropriately low for the degree of anemia she has and may be related to her renal dysfunction. Follow her CBC. Continue telemetry? Yes
--- NOTE | 2017-06-13 18:39 | Cons- Nephrology ---
General Information and HPI Consulting Request Date of Consult: 06/13/17 Requested By: Ralph Peres MD Reason for Consult: CKD Source of Information: patient, family, old records Exam Limitations: poor historian History of Present Illness: The patient is a 72-year-old woman with known chronic kidney disease stage III secondary to hypertensive nephrosclerosis. She was last seen by me in the office in February 2016 at which time her cervical creatinine was 1.5 with an eGFR of 34. She did not have high-grade proteinuria with a urine protein to creatinine ratio of approximately 0.5. She was subsequently lost to follow-up apparently because she was told that her renal function was stable - which it was. She is now admitted to the hospital with a several day history of progressive shortness of breath as well as a nonproductive cough with wheezing. There has been no orthopnea or chest pain. Nasal pharyngeal swab for influenza A and B was negative. Serum creatinine was 2.3 on admission rising to 2.8 today. She also was noted to be hyponatremic at time of admission which has not significantly changed - serum sodium today is 126. Treatment has consisted of IV furosemide, oral prednisone, antibiotics (azithromycin) and for her hypertension she has been treated with labetalol, hydralazine and low dose lisinopril. She has not been high both attempts to or febrile and there has been no exposure to NSAIDs or parenteral contrast. Past medical history is positive for CK D stage III as noted, hypertension, paroxysmal atrial fibrillation, hypothyroidism, anemia, right leg bone fractures (2011). 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 Allergies/Medications Allergies: Coded Allergies: NO KNOWN ALLERGIES (02/12/12) Home Med List: Labetalol HCl 200 MG TABLET 1 TAB PO QAM HEART HEALTH (Reported) Labetalol HCl 100 MG TABLET 1 TAB PO QPM HEART HEALTH (Reported) Levothyroxine Sodium 88 MCG TABLET 1 TAB PO DAILY SUPPLEMENT (Reported) Review of Systems Review of Systems: Constitutional: Reports: see HPI. Denies: chills, fever. Cardiovascular: Reports: edema, palpitations. Denies: chest pain. Respiratory: Reports: cough, short of breath. Denies: sputum production. GI: Reports: no symptoms. Genitourinary: Reports: no symptoms. Musculoskeletal: Reports: see HPI, back pain. Past History Travel History Traveled to [place] past 21 day No Medical History Blood Transfusion Hx: No Neurological: NONE EENT: NONE, cataracts Cardiovascular: AFIB, hypertension Respiratory: NONE Gastrointestinal: NONE Hepatic: NONE Renal: CKD Musculoskeletal: fracture, rheumatoid arthritis Psychiatric: NONE Endocrine: hypothyroidism Blood Disorders: NONE Cancer(s): NONE CNC GRINDER/Reproductive: NONE Surgical History Surgical History: LEFT KNEE REPL. (left knee replacement 2014) Psychosocial History Where Do You Live? Home Services at Home: None Smoking Status: Never Smoked ETOH Use: denies use Illicit Drug Use: denies illicit drug use Exam & Diagnostic Data Vital Signs and I&O Vital Signs Date Time Temp Pulse Resp B/P B/P Pulse O2 O2 Flow FiO2 Mean Ox Delivery Rate 06/13 1600 Nasal 1.0L Cannula 06/13 1431 97.6 69 16 160/82 93 Nasal 1.0L Cannula 06/13 1206 92 Nasal 1.0L Cannula 06/13 1200 72 140/64 06/13 1101 72 140/64 06/13 0800 94 Nasal 1.0L Cannula 06/13 0648 98.0 72 18 122/74 93 06/12 2224 97.6 75 20 124/76 95 04/04 2156 80 124/76 06/12 2155 80 124/76 06/12 2041 Nasal 1.0L Cannula Intake & Output 06/13 1600 06/13 0400 06/12 1600 06/12 0400 06/11 1600 06/11 0400 Intake Total 860 240 590 400 0 Output Total 750 325 800 780 0 Balance 110 -85 -210 -380 0 Intake, IV 10 Intake, Oral 860 240 580 400 0 Number 0 1 Bowel Movements Output, Urine 750 325 800 780 0 Patient 183 lb 187 lb 180 lb Weight Weight Bed scale Reported by Patient Measurement Method Physical Exam: General: Well-developed female on nasal oxygen in NAD Skin: No rash or jaundice HEENT: Conjunctivae pale, sclerae anicteric, mucous membranes dry Neck: Without masses or thyromegaly, no supraclavicular or cervical adenopathy Chest: Diffuse wheezes and rhonchi bilaterally Heart: Regular rate and rhythm without S3 or rub Abdomen: Obese, soft and nontender without palpable masses or organomegaly Extremities: Without cyanosis or edema Neuro: Awake and alert, no focal findings, no asterixis or myoclonus Assessment/Plan Assessment/Recommendations Assessment: 72-year-old woman with known CK D stage III secondary to hypertensive nephrosclerosis who was lost to renal follow-up since February 2016 at which time her serum creatinine was 1.5 with an EGFR of 34 and no significant proteinuria. She now comes in with shortness of breath which I believe is on the basis of a bronchospastic pulmonary issue (bronchitis) as opposed to a significant element of congestive heart failure. Renal function on admission was worse than it was 2 years ago due either to progression of her underlying disease or to recent worsening because of poor intake in the setting of an acute respiratory illness. Further deterioration in renal function since admission may be related to diuresis. The hyponatremia is due to hypotonic fluid ingestion the setting of renal failure. Although there may be an element of SIADH due to her pulmonary illness, this cannot be ascertained in the setting of significant renal failure. Finally, her anemia is likely multifactorial and should be evaluated. Recommendations: 1. Renal ultrasound if not already done to rule out an obstructive component 2. 24-hour urine for protein and creatinine 3. Anemia workup 4. Would hold on any further diuretics for the moment as well as her ESTHELA inhibitor 5. Continue to treat for acute bronchitis/PNA including treatment for atypical pneumonia as you are doing 6. Limit by mouth fluids to 1,000 mL per day 7. Monitor intake and output, chemistries daily Thank you. Will follow along with you.
[2017-06-13 18:45] LABS: ABSOLUTE BASOPHIL COUNT 0 /CUMM (0.0-0.2); ABSOLUTE EOSINOPHIL COUNT 0 /CUMM (0.0-0.7); ABSOLUTE GRANULOCYTE CT 5.4 /CUMM (1.4-6.5); ABSOLUTE LYMPH COUNT 0.5 /CUMM (1.2-3.4); ABSOLUTE MONOCYTE COUNT 0.2 /CUMM (0.10-0.60); BASOPHIL % 0.4 % (0.0-2.0); EOSINOPHIL % 0.5 % (0-5); GRANULOCYTE % 87.2 % (42.2-75.2); HEMATOCRIT 24.8 % (37-47); MEAN CORPUSCULAR HGB 31.1 PG (27.0-31.0); MEAN CORPUSCULAR HGB CONC 34.4 G/DL (33.0-37.0); MEAN CORPUSCULAR VOLUME 90.2 FL (81.0-99.0); MEAN PLATELET VOLUME 7.8 FL (7.4-10.4); PLATELET COUNT 249 /CUMM (130-400); RBC DISTRIBUTION WIDTH 13.9 % (11.5-14.5); RED BLOOD CELL CT 2.74 /CUMM (4.20-5.40); WHITE BLOOD CELL COUNT 6.2 /CUMM (4.8-10.8)
--- NOTE | 2017-06-13 21:03 | RADIOLOGY REPORT ---
EXAMINATION: CHEST 2 VIEWS CLINICAL INFORMATION: CHF. COMPARISON: 06/11/2017. TECHNIQUE: PA and lateral views of the chest were obtained. FINDINGS: The cardiac silhouette is prominent, though stable. There is diffuse interstitial prominence present throughout both lungs. The mediastinal and hilar contours are unremarkable. There are neither pleural effusions nor pneumothoraces. There are no consolidations. The osseous structures are unremarkable. IMPRESSION: Cardiomegaly and CHF.
[2017-06-13 23:50] VITALS: BP 134/62
[2017-06-14 06:32] VITALS: BP 144/64
--- NOTE | 2017-06-14 07:55 | PN- Housestaff ---
Delvin CASH,[facility] 06/14/17 0754: Subjective Follow-up For: SOB CHF hyperkalemia fall ckd hyponatremia Tele-Events Since Last Visit: NSR 6478 Subjective: No acute events overnight. Patient states that she continues also slight wheezing. States that she is having worsening facial swelling. States that she is also having now eye swelling. Review of Systems Constitutional: Reports: see HPI. Objective Last 24 Hrs of Vital Signs/I&O Vital Signs Date Time Temp Pulse Resp B/P B/P Pulse O2 O2 Flow FiO2 Mean Ox Delivery Rate 06/14 1600 93 Room Air Room Air 06/14 1436 98.0 74 18 144/82 93 Room Air 06/14 1108 95 Room Air 06/14 0939 66 140/70 06/14 0800 95 Room Air 06/14 0632 98.2 70 18 144/64 96 Nasal Cannula 06/14 0000 Nasal 1.0L Cannula 06/13 2350 97.7 64 16 134/62 97 Nasal 1.0L Cannula 06/13 2121 78 128/70 Intake & Output 06/14 1600 06/14 0800 06/14 0000 Intake Total 120 20 220 Output Total 250 350 620 Balance -130 -330 -400 Intake, Oral 120 20 220 Number 0 Bowel Movements Output, Urine 250 350 620 Patient 183 lb Weight Weight Bed scale Measurement Method Physical Exam General Appearance: Alert, Oriented X3, Cooperative HEENT: bilateral enlarge parotid glands, mild diffuse facial swelling Cardiovascular: Regular Rate, Normal S1, Normal S2 Lungs: bilateral basal crackles Abdomen: Normal Bowel Sounds, Soft, No Tenderness Extremities: right humerus pain with movement/weakness Vascular: 2+ radial pulses Current Medications: Current Medications Sig/Nai Start time Last Medication Dose Route Stop Time Status Admin Acetaminophen 500 MG Q6P PRN 06/12 1545 AC 06/14 PO 1736 Azithromycin 500 MG DAILY 06/14 1445 AC 06/14 PO 06/17 1001 1727 Azithromycin 500 MG 1500 06/13 1500 DC 06/13 Dextrose/Water 250 ML IV 06/17 1559 1726 Benzonatate 100 MG TID 06/13 1000 AC 06/14 PO 1528 Docusate Sodium 100 MG DAILY NEEDED PRN 06/14 1645 AC 06/14 PO 1727 Ferrous Sulfate 325 MG 1400 06/12 1400 AC 06/14 PO 0939 Furosemide 40 MG DAILY 06/14 1500 AC 06/14 PO 1728 Guaifenesin/Codeine 10 ML Q4P PRN 06/13 0245 AC 06/13 Phosphate PO 1109 Heparin Sodium 5,000 UNIT Q8 06/11 2200 AC 06/14 (Porcine) SC 1356 Hydralazine HCl 25 MG TID 06/14 220 AC PO Labetalol HCl 200 MG BID 06/14 2200 AC PO Labetalol HCl 200 MG QAM 06/12 1000 DC 06/14 PO 0939 Labetalol HCl 100 MG QPM 06/11 2200 DC 06/13 PO 2121 Levothyroxine Sodium 0.088 MG DAILY AC 06/15 0700 AC PO Levothyroxine Sodium 0.088 MG DAILY 06/12 1000 DC 06/14 PO 0939 Lidocaine 1 PAT Q24H 06/12 1535 AC 06/14 EXT 1529 Lisinopril 2.5 MG DAILY 06/13 1000 DC 06/13 PO 1200 Nitroglycerin 0.4 MG DAILY 06/14 1909 CAN TOP Nitroglycerin 0.4 MG Q24H 06/12 1600 AC 06/14 TOP 1529 Non-Formulary 1 UNIT 0730,1130,1630 06/13 1630 06/14 Medication ANY 1729 Ondansetron HCl 4 MG Q6P PRN 06/13 1630 AC 06/14 IV 1627 Polyethylene Glycol 17 GM DAILY PRN 06/14 1645 AC PO Prednisone 20 MG DAILY 06/13 1000 AC / PO 06/15 1001 0939 Senna 187 MG DAILY PRN 06/14 1645 AC 06/14 PO 1727 Sodium Chloride 1,000 ML Q13H 06/14 1700 AC / IV 06/15 0559 1730 Sodium Chloride 1,000 ML Q13H / 1500 DC 06/14 IV 1534 Last 24 Hrs of Lab/Kade Results Last 24 Hrs of Labs/Mics: Laboratory Tests 06/14/17 1540: Lactic Acid 0.8 06/14/17 0644: Anion Gap 8, Estimated GFR 17 L, BUN/Creatinine Ratio 12.2, Serum Osmolality 266 L, CBC w Diff NO MAN DIFF REQ, RBC 2.52 L, MCV 90.4, MCH 30.2, MCHC 33.4, RDW 13.9, MPV 7.6, Gran % 67.1, Lymphocytes % 20.5, Monocytes % 10.6 H, Eosinophils % 1.2, Basophils % 0.6, Absolute Granulocytes 3.7, Absolute Lymphocytes 1.1 L, Absolute Monocytes 0.6, Absolute Eosinophils 0.1, Absolute Basophils 0 Assessment/Plan Assessment: 72-year-old female with a past medical history of hypertension and hypothyroidism presenting for 4 days of shortness of breath. #SOB more likely due to viral syndrome and acute onset of decompensated CHF CXR: Interstitial pulmonary edema. No focal consolidation. trop <0.01x3 ProBNP 4520 TSH 4.65 (high), T4 7.8 Doppler ultrasound negative for DVT Rapid flu negative Echo: 60% repeat-CXR: Cardiomegaly and CHF -start azithromycin x5days -Continue Tessalon Perles for cough -Prednisone 20mg x3 days -Discontinued Lasix for worsening CKD -cont azithromycin 5 days -1L fluid restriction -Continue cardiology recommendations #anemia? vs acute blood loss H/H 8.7/26 -> 7.4/22.1 -> 8.5/24.8 -> 7.6/22.7 Baseline 02/07 Fe 36,TBC 259, Ferritin 122 B12 >1000, folate normal Reticulocyte normal Hemmoccult + -pending serum haptoglobin, -consider epo level -type and cross -Guaiac all stools -monitor for signs of bleeding -follow h/h -goal hgb >7 #Hyponatremia NA 127 -> 129 -> 126 -> 122 -cont NS @ 75 for 1L with lasix 40mg daily -follow nephro recs -cont monitoring BEP #hyperkalemia K5.5 -> 4.7 -> 5.0 1x kayexalate given History of hyperkalemia from ESTHELA inhibitor -monitor bep #ckd stage 3 CR 2.7 (2.4 at baseline) Previous renal ultrasound:1. Both kidneys demonstrate increased parenchymal echogenicity and cortical thinning, most consistent with medical renal disease. 2. No renal calculi or hydronephrosis bilaterally. 3. Small bilateral renal cysts. Lipid panel normal Urine osm 149 24 hr total protein 2700 -cont following nephro #htn -cont nitro patch and labetalol 200mg BID -Stopped Lasix and lisinopril due to REGULO/ckd -Stopped hydralazine for facial swelling #Fall Right shoulder: Age-indeterminate cortical irregularity of the lateral scapula near the glenoid, which could be chronic Right elbow: No acute findings. -pain control #facial swelling -Stopped hydralazine -Continue lemon sours for possible parotiditis #back pain Chronic, relieved with palpiation -rice sock -pain control #full code #dvt ppx - sc heparin Problem List: 1. Anemia 2. CKD (chronic kidney disease) 3. Hyponatremia 4. Hyperkalemia 5. Fall 6. CHF (congestive heart failure) 7. Viral respiratory infection Pain Ratin Pain Location: none Pain Goal: Pain 4 or less Pain Plan: pain pathway Tomorrow's Labs & Rationales: cbc bep Ralph Peres MD 06/14/17 1113: Attending MD Review Statement Attending Statement Attending MD Statement: examined this patient, discuss w/resident/PA/[employer], agreed w/resident/PA/[employer], reviewed EMR data (avail) Attending Assessment/Plan: 72F PMH HTN, hypothyroidism, CKD stage 4 presenting with several days of progressive shortness of breath, with mild bilateral leg swelling and pulmonary vascular congestion on CXR, found to have new onset CHF, also with weakness and cough consistent with viral syndrome. Appears better today. Facial puffiness present bilaterally but improved. Able to walk today with PT. Rapid flu negative. Sodium worse today 122. 1. New onset acute CHF 2. Dyspnea on exertion 3. CKD Stage 4 4. Viral syndrome Plan - Continue on telemetry - Continue Azithromycin - Fluid restriction - Monitor electrolytes and renal function - Cardiology and nephrology consults - 24 urinary protein pending - Renal ultrasound - Continue Labetalol - DVT PPx
[2017-06-14 08:03] LABS: ABSOLUTE BASOPHIL COUNT 0 /CUMM (0.0-0.2); ABSOLUTE EOSINOPHIL COUNT 0.1 /CUMM (0.0-0.7); ABSOLUTE GRANULOCYTE CT 3.7 /CUMM (1.4-6.5); ABSOLUTE LYMPH COUNT 1.1 /CUMM (1.2-3.4); ABSOLUTE MONOCYTE COUNT 0.6 /CUMM (0.10-0.60); BASOPHIL % 0.6 % (0.0-2.0); EOSINOPHIL % 1.2 % (0-5); GRANULOCYTE % 67.1 % (42.2-75.2); HEMATOCRIT 22.7 % (37-47); MEAN CORPUSCULAR HGB 30.2 PG (27.0-31.0); MEAN CORPUSCULAR HGB CONC 33.4 G/DL (33.0-37.0); MEAN CORPUSCULAR VOLUME 90.4 FL (81.0-99.0); MEAN PLATELET VOLUME 7.6 FL (7.4-10.4); PLATELET COUNT 239 /CUMM (130-400); RBC DISTRIBUTION WIDTH 13.9 % (11.5-14.5); RED BLOOD CELL CT 2.52 /CUMM (4.20-5.40); WHITE BLOOD CELL COUNT 5.5 /CUMM (4.8-10.8)
--- NOTE | 2017-06-14 12:04 | ULTRASOUND REPORT ---
EXAMINATION: US RETROPERITONEAL COMPLETE (RENAL) CLINICAL INFORMATION: Acute kidney injury.. COMPARISON: Renal ultrasound 06/11/2017 TECHNIQUE: Real-time imaging of the kidneys and bladder. FINDINGS: RIGHT KIDNEY: 10.1 x 4.4 x 4.7 cm (SAG x AP x TRV). The kidney demonstrates diffuse cortical thinning and increased echogenicity. There is mild fullness of the right renal pelvis and some renal pyramids. No gross renal calculi identified. LEFT KIDNEY: 9.6 x 4.3 x 4.6 cm (SAG x AP x TRV). The kidney demonstrates diffuse cortical thinning and increased echogenicity. 1.1 cm upper pole cyst. No renal calculi or hydronephrosis. BLADDER: The bladder is decompressed and therefore cannot be evaluated. Bilateral ureteral jets are not demonstrated. IMPRESSION: 1. Again demonstrated is increased echogenicity and cortical thinning of both kidneys, most consistent with medical renal disease. 2. Mild fullness of the right renal pelvis and some right-sided renal pyramids. No renal calculi appreciated.
[2017-06-14 14:36] VITALS: BP 144/82
[2017-06-14] MEDS ORDERED: AZITHROMYCIN500 M3 PO ×2 (14:36→14:45)
[2017-06-14] MEDS ORDERED: FERROUS SULFAT325 M2 PO (14:39)
[2017-06-14] MEDS ORDERED: LABETALOL HCL200 M1 PO (14:49)
--- NOTE | 2017-06-14 15:00 | Patient Discharge Instructions ---
Discharge Instructions General Discharge Information Special Instructions: Please follow up with your pcp in 1 week. Please follow up with your cleaning attendant in 1 week. Otherwise you can see Dr. Parr. Please follow up with chief of police in 1 week. Please take your medications as perscribed. Acute Coronary Syndrome Inclusion Criteria At DC or during hospital stay patient has or had the following: ACS DIAGNOSIS No Discharge Core Measures Meds if any: Prescribed or Continued at Discharge Meds if any: NOT Prescribed or Continued at Discharge Congestive Heart Failure Inclusion Criteria At DC or during hospital stay patient has or had the following: CHF DIAGNOSIS Yes Discharge Core Measures Meds if any: Prescribed or Continued at Discharge Meds if any: NOT Prescribed or Continued at Discharge Cerebrovascular accident Inclusion Criteria At DC or during hospital stay patient has or had the following: CVA/TIA Diagnosis No Discharge Core Measures Meds if any: Prescribed or Continued at Discharge Meds if any: NOT Prescribed or Continued at Discharge Venous thromboembolism Inclusion Criteria VTE Diagnosis No VTE Type NONE VTE Confirmed by (Test) DUPLEX VENOUS EXTREM UNI Discharge Core Measures - Per Current guidelines, there needs to be overlap - treatment for the first 5 days of Warfarin therapy. - If discharged on Warfarin prior to 5 days of - overlap therapy, the patient will need to be - assessed for post discharge needs including - *Post discharge parental anticoagulation - *Warfarin and/or parental anticoagulation education - *Follow up date to check INR post discharge At least 5 days overlap therapy as Inpatient No Meds if any: Prescribed or Continued at Discharge Note: Overlap Therapy is Warfarin and Anticoagulant Meds if any: NOT Prescribed or Continued at Discharge
--- NOTE | 2017-06-14 17:20 | PN- Nephrology ---
Assessment/Plan Nephrology Assessment: 1. CKD stage III secondary to hypertensive nephrosclerosis, perhaps with an acute component due to diuretic therapy for CHF 2. Shortness of breath likely on the basis of an acute/subacute respiratory illness i.e. bronchitis or atypical pneumonia 3. Hyponatremia secondary to renal failure + SIADH (pulmonary process) + hypotonic fluid administration (azithromycin) 4. Anemia Suggestion: 1. Trial of IV normal saline at 75 mL per hour along with Lasix 40 mg by mouth today and daily 2. Discontinue IV azithromycin (because of the necessity to administer significant amounts of D5W with each infusion) and switch to an oral preparation 3. Continue to monitor intake and output, weights, renal function, electrolytes daily 4. Repeat serum sodium later this evening 5. Anemia workup; consider packed RBC transfusion if hemoglobin continues to fall Subjective Subjective: Patient does not feel any better today. Her issue at the moment does not appear to be shortness of breath but instead she is complaining of nausea. No headache or visual symptoms. Serum sodium has come down to 122 while her creatinine remains at about 2.7. I'm not sure what to make of the urine osmolality of 145 as her clinical picture suggests too much ADH effect. Objective Vital Signs and I&Os Vital Signs Date Time Temp Pulse Resp B/P B/P Pulse O2 O2 Flow FiO2 Mean Ox Delivery Rate 06/14 1436 98.0 74 18 144/82 93 Room Air 06/14 1108 95 Room Air 06/14 0939 66 140/70 06/14 0800 95 Room Air 06/14 0632 98.2 70 18 144/64 96 Nasal Cannula 06/14 0000 Nasal 1.0L Cannula 06/13 2350 97.7 64 16 134/62 97 Nasal 1.0L Cannula 06/13 2121 78 128/70 06/13 1910 93 Nasal 1.0L Cannula Intake & Output 06/14 1600 06/14 0400 06/13 1600 06/13 0400 06/12 1600 06/12 0400 Intake Total 140 220 860 240 590 400 Output Total 600 620 750 325 800 780 Balance -460 -400 110 -85 -210 -380 Intake, IV 10 Intake, Oral 140 220 860 240 580 400 Number 0 0 1 Bowel Movements Output, Urine 600 620 750 325 800 780 Patient 183 lb 183 lb 187 lb Weight Weight Bed scale Bed scale Measurement Method Physical Exam: General: Well-developed female on nasal oxygen in NAD Skin: No rash or jaundice HEENT: Conjunctivae pale, sclerae anicteric, mucous membranes dry Neck: Without masses or thyromegaly, no supraclavicular or cervical adenopathy Chest: Diffuse wheezes and rhonchi bilaterally, slightly less pronounced than yesterday Heart: Regular rate and rhythm without S3 or rub Abdomen: Obese, soft and nontender without palpable masses or organomegaly Extremities: Without cyanosis or edema Neuro: Awake and alert, no focal findings, no asterixis or myoclonus Results Pertinent Lab Results: Laboratory Tests 06/14 06/14 1540 0644 Chemistry Sodium (137 - 145 mmol/L) 122 L Potassium (3.5 - 5.1 mmol/L) 5.0 Chloride (98 - 107 mmol/L) 95 L Carbon Dioxide (22 - 30 mmol/L) 18 L Anion Gap (5 - 16) 8 BUN (7 - 17 mg/dL) 33 H Creatinine (0.5 - 1.0 mg/dL) 2.7 H Estimated GFR (>60 ml/min) 17 L BUN/Creatinine Ratio (7 - 25 %) 12.2 Serum Osmolality (285 - 295 MOSM/KG) 266 L Lactic Acid Pending Hematology CBC w Diff NO MAN DIFF REQ WBC (4.8 - 10.8 /CUMM) 5.5 RBC (4.20 - 5.40 /CUMM) 2.52 L Hgb (12.0 - 16.0 G/DL) 7.6 L Hct (37 - 47 %) 22.7 L MCV (81.0 - 99.0 FL) 90.4 MCH (27.0 - 31.0 PG) 30.2 MCHC (33.0 - 37.0 G/DL) 33.4 RDW (11.5 - 14.5 %) 13.9 Plt Count (130 - 400 /CUMM) 239 MPV (7.4 - 10.4 FL) 7.6 Gran % (42.2 - 75.2 %) 67.1 Lymphocytes % (20.5 - 51.1 %) 20.5 Monocytes % (1.7 - 9.3 %) 10.6 H Eosinophils % (0 - 5 %) 1.2 Basophils % (0.0 - 2.0 %) 0.6 Absolute Granulocytes (1.4 - 6.5 /CUMM) 3.7 Absolute Lymphocytes (1.2 - 3.4 /CUMM) 1.1 L Absolute Monocytes (0.10 - 0.60 /CUMM) 0.6 Absolute Eosinophils (0.0 - 0.7 /CUMM) 0.1 Absolute Basophils (0.0 - 0.2 /CUMM) 0 06/13 06/13 1648 1502 Hematology CBC w Diff NO MAN DIFF REQ WBC (4.8 - 10.8 /CUMM) 6.2 RBC (4.20 - 5.40 /CUMM) 2.74 L Hgb (12.0 - 16.0 G/DL) 8.5 L Hct (37 - 47 %) 24.8 L MCV (81.0 - 99.0 FL) 90.2 MCH (27.0 - 31.0 PG) 31.1 H MCHC (33.0 - 37.0 G/DL) 34.4 RDW (11.5 - 14.5 %) 13.9 Plt Count (130 - 400 /CUMM) 249 MPV (7.4 - 10.4 FL) 7.8 Gran % (42.2 - 75.2 %) 87.2 H Lymphocytes % (20.5 - 51.1 %) 8.8 L Monocytes % (1.7 - 9.3 %) 3.1 Eosinophils % (0 - 5 %) 0.5 Basophils % (0.0 - 2.0 %) 0.4 Absolute Granulocytes (1.4 - 6.5 /CUMM) 5.4 Absolute Lymphocytes (1.2 - 3.4 /CUMM) 0.5 L Absolute Monocytes (0.10 - 0.60 /CUMM) 0.2 Absolute Eosinophils (0.0 - 0.7 /CUMM) 0 Absolute Basophils (0.0 - 0.2 /CUMM) 0 Urines Ur Random Creatinine Cancelled 06/13 06/13 1050 1020 Urines Urinalysis LIGHT H Urine Color (YEL,AMB,STR) YEL Urine Clarity (CLEAR) CLEAR Urine pH (5.0 - 8.0) 6.0 Ur Specific [place] (1.001 - 1.035) 1.015 Urine Protein (NEG,<30 MG/DL) 100 H Urine Ketones (NEG) NEG Urine Nitrite (NEG) NEG Urine Bilirubin (NEG) NEG Urine Urobilinogen (0.1 - 1.0 EU/dl) 0.2 Ur Leukocyte Esterase (NEG) SMALL H Ur Microscopic SEDIMENT EXAMINED Urine RBC (0 - 5 /HPF) RARE Urine WBC (0 - 2 /HPF) 15-25 H Ur Epithelial Cells (NONE,FEW) FEW Urine Bacteria (NEG/NONE) FEW H Urine Mucus (FEW,NONE) FEW Urine Hemoglobin (NEG) TRACE-LYSED Urine Osmolality (300 - 1000 MOSM/KG) 149 L Ur Random Creatinine (mg/dL) 38.9 Urine Total Volume (600 - 1500 ML/24HR) 1350 Urine Creatinine (0.8 - 1.8 g/24HR) 0.5 L Ur Total Protein 24 Hr (42 - 255 mg/24HR) 2700.0 H Ur Sodium 24 Hour (30 - 90 mmol/L) 13 L Ur Potassium 24 Hour (25 - 125 mmol/24H) 21.6 L Urine Glucose (N MG/DL) NEG 06/13 06/12 06/12 06/12 0652 1440 0420 0420 Chemistry Sodium (137 - 145 mmol/L) 126 L Potassium (3.5 - 5.1 mmol/L) 4.7 Chloride (98 - 107 mmol/L) 97 L Carbon Dioxide (22 - 30 mmol/L) 19 L Anion Gap (5 - 16) 9 BUN (7 - 17 mg/dL) 30 H Creatinine (0.5 - 1.0 mg/dL) 2.8 H Estimated GFR (>60 ml/min) 17 L BUN/Creatinine Ratio (7 - 25 %) 10.7 Erythropoietin Pending Troponin I (< 0.11 ng/ml) < 0.01 Triglycerides (<150 mg/dL) 110 Cholesterol (<200 MG/DL) 167 LDL Cholesterol, Calc (65 - 129 mg/dL) 94 HDL Cholesterol (40 - 60 mg/dL) 51 Cholesterol/HDL Ratio (0.00 - 4.23 %) 3 Hematology CBC w Diff NO MAN DIFF REQ WBC (4.8 - 10.8 /CUMM) 6.4 RBC (4.20 - 5.40 /CUMM) 2.46 L Hgb (12.0 - 16.0 G/DL) 7.4 *L Hct (37 - 47 %) 22.1 L MCV (81.0 - 99.0 FL) 89.9 MCH (27.0 - 31.0 PG) 30.0 MCHC (33.0 - 37.0 G/DL) 33.4 RDW (11.5 - 14.5 %) 14.1 Plt Count (130 - 400 /CUMM) 226 MPV (7.4 - 10.4 FL) 7.8 Gran % (42.2 - 75.2 %) 63.8 Lymphocytes % (20.5 - 51.1 %) 18.8 L Monocytes % (1.7 - 9.3 %) 11.5 H Eosinophils % (0 - 5 %) 5.0 Basophils % (0.0 - 2.0 %) 0.9 Absolute Granulocytes (1.4 - 6.5 /CUMM) 4.1 Absolute Lymphocytes (1.2 - 3.4 /CUMM) 1.2 Absolute Monocytes (0.10 - 0.60 /CUMM) 0.7 H Absolute Eosinophils (0.0 - 0.7 /CUMM) 0.3 Absolute Basophils (0.0 - 0.2 /CUMM) 0.1 Haptoglobin Pending Urines Ur Random Creatinine (mg/dL) 17.8 04/04 04/03 0420 2212 Chemistry Sodium (137 - 145 mmol/L) 129 L Potassium (3.5 - 5.1 mmol/L) 4.9 Chloride (98 - 107 mmol/L) 103 Carbon Dioxide (22 - 30 mmol/L) 16 L Anion Gap (5 - 16) 10 BUN (7 - 17 mg/dL) 25 H Creatinine (0.5 - 1.0 mg/dL) 2.4 H Estimated GFR (>60 ml/min) 20 L BUN/Creatinine Ratio (7 - 25 %) 10.4 Iron (37 - 170 ug/dL) 36 L TIBC (265 - 497 ug/dL) 259 L Ferritin (11.1 - 264 ng/mL) 122.0 Troponin I (< 0.11 ng/ml) < 0.01 Vitamin B12 (239 - 931 pg/mL) 485 Folate (2.76 - 20.0 ng/mL) 8.5 Hematology CBC w Diff NO MAN DIFF REQ WBC (4.8 - 10.8 /CUMM) 6.5 RBC (4.20 - 5.40 /CUMM) 2.77 L Hgb (12.0 - 16.0 G/DL) 8.2 L Hct (37 - 47 %) 25.1 L MCV (81.0 - 99.0 FL) 90.8 MCH (27.0 - 31.0 PG) 29.6 MCHC (33.0 - 37.0 G/DL) 32.6 L RDW (11.5 - 14.5 %) 14.8 H Plt Count (130 - 400 /CUMM) 217 MPV (7.4 - 10.4 FL) 7.6 Gran % (42.2 - 75.2 %) 61.4 Lymphocytes % (20.5 - 51.1 %) 21.5 Monocytes % (1.7 - 9.3 %) 11.0 H Eosinophils % (0 - 5 %) 4.9 Basophils % (0.0 - 2.0 %) 1.2 Absolute Granulocytes (1.4 - 6.5 /CUMM) 4.0 Absolute Lymphocytes (1.2 - 3.4 /CUMM) 1.4 Absolute Monocytes (0.10 - 0.60 /CUMM) 0.7 H Absolute Eosinophils (0.0 - 0.7 /CUMM) 0.3 Absolute Basophils (0.0 - 0.2 /CUMM) 0.1 Retic Count (0.5 - 2.0 %) 1.29
--- NOTE | 2017-06-14 18:03 | PN- Cardiology ---
Subjective Subjective: * No chest discomfort. The patient is comfortable with her breathing at rest but walking to the bathroom will make her short of breath. No chest discomfort. Her cough has mostly abated. She continues to report nausea. * Normal EF on echo with normal RV pressures. Mild to moderate MR and TR. * creatinine 2.7 and sodium 122 * severe anemia persists without appropriate rise in reticulocyte count Objective Vital Signs and I&Os Vital Signs Date Time Temp Pulse Resp B/P B/P Pulse O2 O2 Flow FiO2 Mean Ox Delivery Rate 06/14 1600 93 Room Air Room Air 06/14 1436 98.0 74 18 144/82 93 Room Air 06/14 1108 95 Room Air 06/14 0939 66 140/70 06/14 0800 95 Room Air 06/14 0632 98.2 70 18 144/64 96 Nasal Cannula 06/14 0000 Nasal 1.0L Cannula 06/13 2350 97.7 64 16 134/62 97 Nasal 1.0L Cannula 06/13 2121 78 128/70 06/13 1910 93 Nasal 1.0L Cannula Intake & Output 06/14 1600 06/14 0800 06/14 0000 06/13 1600 06/13 0000 Intake Total 120 20 220 500 360 240 Output Total 250 350 620 100 650 325 Balance -130 -330 -400 400 -290 -85 Intake, Oral 120 20 220 500 360 240 Number 0 0 Bowel Movements Output, Urine 250 350 620 100 650 325 Patient 183 lb 183 lb Weight Weight Bed scale Measurement Method Physical Exam: General: WD/WN female in NAD; alert and oriented x 3 Neck: no JVD, no carotid bruit Heart: RRR with 2/6 systolic murmur Lungs: scant crackles at the left base Abdomen: soft, obese, NT, +ve bowel sounds Extremities: no edema Assessment/Plan Assessment/Plan * This patient has shortness of breath that is likely multifactorial and due to a combination of anemia, uncontrolled hypertension and a cough with wheezing that is likely related to a viral syndrome. Would also consider Mycoplasma pneumoniae as this is associated with hyponatremia. If there is some decompensated CHF it is minor and I would be reluctant to overdiurse this patient in the setting of her worsening renal function. I suspect that the renal insufficiency is due to longstanding hypertension. Overall this patient is improved compared to admission which is likely related to better controlled blood pressure and improvement in her URI. * In regard to the patient's renal insufficiency and hypertension I would continue hydralazine 25mg TID and titrate up as necessary to decrease afterload and lower blood pressure. Continue Labetolol 200mg BID. Add a NTG patch at 0.4mg /hour to decreased pre-load. No diuretic for now although it will likely be helpful once the patient's creatinine returns to her baseline. A fluid restriction is reasonable considering her low sodium. * I suspect that this patient has anemia related to her renal dysfunction. Her reticulocyte count is inappropriately low for the degree of anemia she has and may be related to her renal dysfunction. Follow her CBC and pursue workup and treatment for anemia. Continue telemetry? Yes
[2017-06-14 22:42] VITALS: BP 144/93
[2017-06-15 07:41] VITALS: BP 140/86
--- NOTE | 2017-06-15 08:54 | PN- Housestaff ---
Nitza Sanderson 06/15/17 0854: Subjective Follow-up For: CHF CK D Hyponatremia Complaints: sob Tele-Events Since Last Visit: sinus bradycardia to normal sinus rhythm, heart rate ranges from 58-74 Subjective: Patient was seen and examined this morning she was lying comfortably on bed with complaining of slight shortness of breath on lying flat but she said her breathing improved if she lied down on her side. Her nausea is better after moving her bowel last night. Her sodium/low but slightly improved from 121-122. Her hemoglobin is still pending. Review of Systems Constitutional: Denies: chills. EENTM: Denies: blurred vision, visual changes. Cardiovascular: Reports: edema, orthopena. Denies: chest pain. Respiratory: Denies: cough, hemoptysis. Gastrointestinal: Denies: abdominal pain, constipation. Genitourinary: Denies: discharge, frequency. Musculoskeletal: Denies: back pain, gout. Objective Last 24 Hrs of Vital Signs/I&O Vital Signs Date Time Temp Pulse Resp B/P B/P Pulse O2 O2 Flow FiO2 Mean Ox Delivery Rate 06/15 0952 66 140/86 06/15 0952 66 140/86 06/15 0741 97.5 66 20 140/86 95 Room Air / 0000 Room Air / 2242 97.4 77 24 144/93 92 / 2202 74 152/80 04 2202 74 152/80 / 1600 93 Room Air Room Air 06/14 1436 98.0 74 18 144/82 93 Room Air 06/14 1108 95 Room Air Intake & Output 06/15 1600 06/15 0800 06/15 0000 Intake Total 960 660 Output Total 775 675 Balance 185 -15 Intake, IV 600 300 Intake, Oral 360 360 Number 1 2 Bowel Movements Output, Urine 775 675 Patient 185 lb 185 lb Weight Physical Exam General Appearance: Alert, Oriented X3, Cooperative, No Acute Distress Cardiovascular: Regular Rate, Normal S1, Normal S2 Lungs: bilateral basal crackles Abdomen: Soft, No Tenderness Extremities: No Cyanosis, No Edema Current Medications: Current Medications Sig/Nai Start time Last Medication Dose Route Stop Time Status Admin Acetaminophen 500 MG .STK-MED ONE 06/14 1735 DC PO 06/14 1736 Acetaminophen 500 MG Q6P PRN 06/12 1545 AC 04/ PO 1736 Azithromycin 500 MG DAILY 04/ 1445 AC 04/ PO 04 1001 0951 Azithromycin 500 MG 1500 04/ 1500 DC 0405 Dextrose/Water 250 ML IV 06/17 1559 1726 Benzonatate 100 MG TID 04/05 1000 AC 04/ PO 0951 Docusate Sodium 100 MG DAILY NEEDED PRN 04/ 1645 DC 04/ PO 1727 Ferrous Sulfate 325 MG 1400 / 1400 AC 06/15 PO 0951 Furosemide 40 MG DAILY 04/ 1500 AC 06/15 PO 0951 Guaifenesin/Codeine 10 ML Q4P PRN / 0245 AC 04 Phosphate PO 1109 Heparin Sodium 5,000 UNIT Q8 / 2200 DC 06/14 (Porcine) SC 1356 Hydralazine HCl 25 MG TID / 2200 AC / PO 0952 Labetalol HCl 200 MG BID / 2200 AC 06/15 PO 0952 Labetalol HCl 200 MG QAM 06/12 1000 DC 06/14 PO 0939 Labetalol HCl 100 MG QPM / 2200 DC 04/ PO 2121 Levothyroxine Sodium 0.088 MG DAILY AC 06/15 0700 AC 06/15 PO 0554 Lidocaine 1 PAT Q24H /04 1535 AC 06/14 EXT 1529 Nitroglycerin 0.4 MG DAILY / 1909 CAN TOP Nitroglycerin 0.4 MG Q24H /04 1600 AC 04/ TOP 1529 Non-Formulary 1 UNIT 0730,1130,1630 04/ 1630 AC 06/15 Medication ANY 0800 Ondansetron HCl 4 MG Q6P PRN 04/ 1630 AC 04/ IV 1955 Polyethylene Glycol 17 GM DAILY PRN / 1645 AC PO Prednisone 20 MG DAILY 04/ 1000 DC 04/ PO 07 1001 0951 Senna 187 MG DAILY PRN 06/14 1645 DC 04/ PO 1727 Senna/Docusate Sodium 1 TAB .STK-MED ONE / 1724 DC PO 04/06 1725 Sodium Chloride 1,000 ML Q13H / 0915 DC IV /07 2214 Sodium Chloride 1,000 ML Q13H /06 1700 DC 04/ IV 06/15 0559 1730 Sodium Chloride 1,000 ML Q13H 06/14 1500 DC 06/14 IV 1534 Tramadol HCl 50 MG Q12P PRN 06/14 1945 AC PO Last 24 Hrs of Lab/Kade Results Last 24 Hrs of Labs/Mics: Laboratory Tests 06/15/17 0640: Anion Gap 9, Estimated GFR 17 L, BUN/Creatinine Ratio 12.9, CBC w Diff Pending, WBC Pending, RBC Pending, Hgb Pending, Hct Pending, MCV Pending, MCH Pending, MCHC Pending, RDW Pending, Plt Count Pending, MPV Pending 06/14/17 2220: Anion Gap 8, Estimated GFR 19 L, BUN/Creatinine Ratio 14.4 06/14/17 1540: Lactic Acid 0.8 Assessment/Plan Assessment: Patient is 72-year-old female with past medical history significant for hypertension and hypothyroidism presented with worsening shortness of breath which most likely is multifactorial due to her anemia, viral syndrome and probably CHF is also contribution to her symptoms. She was also noted to have elevated creatinine which most likely is acute on chronic due to her hypertensive nephrosclerosis and also found to be hyponatremic most likely due to renal failure and SIADH. During her hospital stay will address following problems Problem #1 worsening shortness of breath which is multifactorial could be due to anemia, CHF and viral syndrome Supplemental oxygen to keep oxygen saturation more than 90% if needed We will hold Lasix even her significant hyponatremia We will monitor her CBC and if worsening we might consider giving her 1 unit of packed red cell after consulting cardiology due to fear of fluid overload We will do chest x-ray Problem #2 hyponatremia which is most likely due to renal failure presents SIADH She is on fluid restriction She was given thousand cc of normal saline with Lasix yesterday her sodium is still 122. We will hold further fluids given her slightly fluid overload status Problem #3 anemia We will monitor H&H and if needed we will transfuse 1 unit of packed red cells Problem List: 1. CKD (chronic kidney disease) 2. Hyponatremia Pain Ratin Pain Location: na Pain Goal: Remain pain free Pain Plan: tylenol Tomorrow's Labs & Rationales: cbc and bep Aleta CASH,Jerry 06/15/17 1403: Attending MD Review Statement Attending Statement Attending MD Statement: examined this patient, discuss w/resident/PA/COMMUNITY MARKETING COORDINATOR, agreed w/resident/PA/COMMUNITY MARKETING COORDINATOR, reviewed EMR data (avail) Attending Assessment/Plan: Patient sitting in chair this morning. She complains of for persistent nausea this morning. Her appetite has been very poor by mouth intake for food is negligible. She status post a normal saline infusion yesterday. Her vital signs currently are stable and she is afebrile with a saturation 95% on room air. Chest exam shows a decreased air entry with a few crackles. Abdomen soft nontender. Neuro exam is nonfocal. No edema is noted. Hematocrit is 22.6 and creatinine is 2.8 which is slightly up from 2.5 yesterday. CXR 06/15 Mild interval improvement in interstitial pulmonary edema. No new consolidation or significant pleural fluid. Assessment plan History of CHF Acute and chronic renal failure Severe hyponatremia Nausea Poor appetite Plan Recheck BEP tomorrow Zofran when necessary for nausea Encourage oral diet Await further input from renal
[2017-06-15 08:59] LABS: ABSOLUTE BASOPHIL COUNT 0 /CUMM (0.0-0.2); ABSOLUTE EOSINOPHIL COUNT 0.1 /CUMM (0.0-0.7); ABSOLUTE GRANULOCYTE CT 3.7 /CUMM (1.4-6.5); ABSOLUTE LYMPH COUNT 1.3 /CUMM (1.2-3.4); ABSOLUTE MONOCYTE COUNT 0.4 /CUMM (0.10-0.60); BASOPHIL % 0.4 % (0.0-2.0); EOSINOPHIL % 1.9 % (0-5); GRANULOCYTE % 66.7 % (42.2-75.2); HEMATOCRIT 22.6 % (37-47); MEAN CORPUSCULAR HGB 30.2 PG (27.0-31.0); MEAN CORPUSCULAR HGB CONC 33.9 G/DL (33.0-37.0); MEAN CORPUSCULAR VOLUME 89.1 FL (81.0-99.0); MEAN PLATELET VOLUME 7.6 FL (7.4-10.4); PLATELET COUNT 248 /CUMM (130-400); RBC DISTRIBUTION WIDTH 13.7 % (11.5-14.5); RED BLOOD CELL CT 2.54 /CUMM (4.20-5.40); WHITE BLOOD CELL COUNT 5.5 /CUMM (4.8-10.8)
--- NOTE | 2017-06-15 12:09 | RADIOLOGY REPORT ---
EXAMINATION: XR PORTABLE CHEST CLINICAL INFORMATION: Shortness of breath and wheezing. COMPARISON: Chest radiograph 06/13/2017. TECHNIQUE: Portable frontal view of the chest was obtained. FINDINGS: There is diffuse prominence of the background interstitium with slight interval improvement compared with prior in keeping with interstitial edema. There are low lung volumes. There is no large volume of pleural fluid. The heart is mildly enlarged but unchanged. There is no dense consolidation or pneumothorax. IMPRESSION: Mild interval improvement in interstitial pulmonary edema. No new consolidation or significant pleural fluid.
--- NOTE | 2017-06-15 14:04 | Cons- Gastroenterology ---
General Information and HPI Consulting Request Date of Consult: 06/15/17 (MD VINAY/GASTROENTEROLOGY) Requested By: Ralph Peres MD Reason for Consult: Melena, anemia Source of Information: patient, family, old records History of Present Illness: 72-year-old female admitted for shortness of breath, and also being treated for renal failure, and hyponatremia. During this hospitalization she has developed nausea, vomiting of bloodless emesis, and 2 loose black bowel movements yesterday after having had no bowel movements for several days (and given a laxative). She has been noted to be anemic. She complains of weakness. She has a history of occasional indigestion but no diagnosed GERD or peptic ulcer disease, and does not use NSAIDs antiplatelet agents or anticoagulants. She has never had an EGD or colonoscopy. She's had no abdominal pain, chest pain, syncope or fever; she has had some diaphoresis. Her bowel movements are usually regular with a tendency to constipation, and there is no history of GI bleeding. There is no family history of GI malignancy. Allergies/Medications Allergies: Coded Allergies: NO KNOWN ALLERGIES (02/12/12) Home Med List: Azithromycin 500 MG TABLET 1 TAB PO DAILY shortness of breath Ferrous Sulfate 325 MG (65 MG IRON) TABLET.DR 1 TAB PO DAILY ANEMIA PLEASE TAKE 2 OR MORE HOURS AFTER YOU TAKE YOUR THYROID MEDICINE Labetalol HCl 200 MG TABLET 1 TAB PO QAM HEART HEALTH (Reported) Labetalol HCl 100 MG TABLET 1 TAB PO QPM HEART HEALTH (Reported) Labetalol HCl 200 MG TABLET 1 TAB PO BID BLOOD PRESSURE Levothyroxine Sodium 88 MCG TABLET 1 TAB PO DAILY SUPPLEMENT (Reported) Current Medications: Current Medications Sig/Nai Start time Last Medication Dose Route Stop Time Status Admin Acetaminophen 500 MG .STK-MED ONE 06/14 1735 DC PO 06/14 1736 Acetaminophen 500 MG Q6P PRN 06/12 1545 AC 06/14 PO 1736 Azithromycin 500 MG DAILY 06/14 1445 AC 06/15 PO 06/17 1001 0951 Azithromycin 500 MG 1500 06/13 1500 DC 06/13 Dextrose/Water 250 ML IV 06/17 1559 1726 Benzonatate 100 MG TID 06/13 1000 AC 06/15 PO 0951 Docusate Sodium 100 MG DAILY NEEDED PRN 06/14 1645 DC 06/14 PO 1727 Ferrous Sulfate 325 MG 1400 06/12 1400 AC 06/15 PO 0951 Furosemide 40 MG DAILY / 1500 AC 06/15 PO 0951 Guaifenesin/Codeine 10 ML Q4P PRN 06/13 0245 AC 04 Phosphate PO 1109 Heparin Sodium 5,000 UNIT Q8 06/11 2200 DC 06/14 (Porcine) SC 1356 Hydralazine HCl 25 MG TID 06/14 2200 AC 06/15 PO 0952 Labetalol HCl 200 MG BID 06/14 2200 AC 06/15 PO 0952 Labetalol HCl 200 MG QAM 06/12 1000 DC 06/14 PO 0939 Labetalol HCl 100 MG QPM 06/11 2200 DC 06/13 PO 2121 Levothyroxine Sodium 0.088 MG DAILY AC 06/15 0700 AC 06/15 PO 0554 Lidocaine 1 PAT Q24H 06/12 1535 AC 06/14 EXT 1529 Nitroglycerin 0.4 MG DAILY 06/14 1909 CAN TOP Nitroglycerin 0.4 MG Q24H 06/12 1600 AC 06/14 TOP 1529 Non-Formulary 1 UNIT 0730,1130,1630 04/ 1630 AC 06/15 Medication ANY 0800 Ondansetron HCl 4 MG Q6P PRN / 1630 AC 06/14 IV 1955 Polyethylene Glycol 17 GM DAILY PRN 06/14 1645 AC PO Prednisone 20 MG DAILY 04/ 1000 DC / PO 06/15 1001 0951 Senna 187 MG DAILY PRN / 1645 DC / PO 1727 Senna/Docusate Sodium 1 TAB .STK-MED ONE 06/14 1724 DC PO 04/ 1725 Sodium Chloride 1,000 ML Q13H / 0915 DC IV / 2214 Sodium Chloride 1,000 ML Q13H / 1700 DC 04/ IV / 0559 1730 Sodium Chloride 1,000 ML Q13H / 1500 DC 04/ IV 1534 Tramadol HCl 50 MG Q12P PRN / 1945 AC PO Past History Travel History Traveled to [place] past 21 day No Medical History Blood Transfusion Hx: No Neurological: NONE EENT: NONE, cataracts Cardiovascular: AFIB, hypertension Respiratory: NONE Gastrointestinal: NONE Hepatic: NONE Renal: CKD Musculoskeletal: fracture, rheumatoid arthritis Psychiatric: NONE Endocrine: hypothyroidism Blood Disorders: NONE Cancer(s): NONE [employer]/Reproductive: NONE Surgical History Surgical History: LEFT KNEE REPL. (left knee replacement 2014) Psychosocial History Where Do You Live? Home Services at Home: None Smoking Status: Never Smoked ETOH Use: denies use Illicit Drug Use: denies illicit drug use Review of Systems Review of Systems Constitutional: Reports: diaphoresis, malaise, weakness. EENTM: Denies: icterus, epistaxis. Cardiovascular: Reports: edema. Denies: chest pain, syncope. Respiratory: Reports: cough, short of breath. GI: Reports: see HPI. Genitourinary: Denies: dysuria, hematuria. Musculoskeletal: Denies: muscle stiffness, neck pain. Skin: Denies: jaundice, lesions. Neurological/Psychological: Denies: cognitive dysfunction, headache. Hematologic/Endocrine: Denies: bruising, bleeding. Exam & Diagnostic Data Vital Signs and I&O Vital Signs Date Time Temp Pulse Resp B/P B/P Pulse O2 O2 Flow FiO2 Mean Ox Delivery Rate 06/15 0952 66 140/86 06/15 0952 66 140/86 06/15 0741 97.5 66 20 140/86 95 Room Air 06/15 0000 Room Air 06/14 2242 97.4 77 24 144/93 92 06/14 2202 74 152/80 06/14 2202 74 152/80 06/14 1600 93 Room Air Room Air 06/14 1436 98.0 74 18 144/82 93 Room Air Intake & Output 06/15 1600 06/15 0400 06/14 1600 06/14 0400 06/13 1600 06/13 0400 Intake Total 960 660 140 220 860 240 Output Total 1125 675 600 620 750 325 Balance -165 -15 -460 -400 110 -85 Intake, IV 600 300 Intake, Oral 360 360 140 220 860 240 Number 1 2 0 0 Bowel Movements Output, Urine 1125 675 600 620 750 325 Patient 185 lb 185 lb 183 lb 183 lb Weight Weight Bed scale Measurement Method Physical Exam: Well-developed, well-nourished, in no apparent distress. Alert and oriented with normal cognition. No rash, skin lesion, jaundice. No adenopathy. Sclera anicteric. No oropharyngeal lesion. Neck supple without thyromegaly or mass. Heart regular rhythm with 2/6 systolic murmur. Lungs clear bilaterally. Abdomen obese, soft, normal bowel sounds; no tenderness, mass, organomegaly. Extremities without edema. Distal pulses intact bilaterally. Results Pertinent Lab Results: Laboratory Tests 06/15 06/14 06/14 0640 2220 1540 Chemistry Sodium (137 - 145 mmol/L) 122 L 121 L Potassium (3.5 - 5.1 mmol/L) 4.7 5.0 Chloride (98 - 107 mmol/L) 95 L 96 L Carbon Dioxide (22 - 30 mmol/L) 18 L 17 L Anion Gap (5 - 16) 9 8 BUN (7 - 17 mg/dL) 36 H 36 H Creatinine (0.5 - 1.0 mg/dL) 2.8 H 2.5 H Estimated GFR (>60 ml/min) 17 L 19 L BUN/Creatinine Ratio (7 - 25 %) 12.9 14.4 Lactic Acid (0.7 - 2.1 mmol/L) 0.8 Hematology CBC w Diff NO MAN DIFF REQ WBC (4.8 - 10.8 /CUMM) 5.5 RBC (4.20 - 5.40 /CUMM) 2.54 L Hgb (12.0 - 16.0 G/DL) 7.7 L Hct (37 - 47 %) 22.6 L MCV (81.0 - 99.0 FL) 89.1 MCH (27.0 - 31.0 PG) 30.2 MCHC (33.0 - 37.0 G/DL) 33.9 RDW (11.5 - 14.5 %) 13.7 Plt Count (130 - 400 /CUMM) 248 MPV (7.4 - 10.4 FL) 7.6 Gran % (42.2 - 75.2 %) 66.7 Lymphocytes % (20.5 - 51.1 %) 23.9 Monocytes % (1.7 - 9.3 %) 7.1 Eosinophils % (0 - 5 %) 1.9 Basophils % (0.0 - 2.0 %) 0.4 Absolute Granulocytes (1.4 - 6.5 /CUMM) 3.7 Absolute Lymphocytes (1.2 - 3.4 /CUMM) 1.3 Absolute Monocytes (0.10 - 0.60 /CUMM) 0.4 Absolute Eosinophils (0.0 - 0.7 /CUMM) 0.1 Absolute Basophils (0.0 - 0.2 /CUMM) 0 / 04/ 0644 1648 Chemistry Sodium (137 - 145 mmol/L) 122 L Potassium (3.5 - 5.1 mmol/L) 5.0 Chloride (98 - 107 mmol/L) 95 L Carbon Dioxide (22 - 30 mmol/L) 18 L Anion Gap (5 - 16) 8 BUN (7 - 17 mg/dL) 33 H Creatinine (0.5 - 1.0 mg/dL) 2.7 H Estimated GFR (>60 ml/min) 17 L BUN/Creatinine Ratio (7 - 25 %) 12.2 Serum Osmolality (285 - 295 MOSM/KG) 266 L Hematology CBC w Diff NO MAN DIFF REQ NO MAN DIFF REQ WBC (4.8 - 10.8 /CUMM) 5.5 6.2 RBC (4.20 - 5.40 /CUMM) 2.52 L 2.74 L Hgb (12.0 - 16.0 G/DL) 7.6 L 8.5 L Hct (37 - 47 %) 22.7 L 24.8 L MCV (81.0 - 99.0 FL) 90.4 90.2 MCH (27.0 - 31.0 PG) 30.2 31.1 H MCHC (33.0 - 37.0 G/DL) 33.4 34.4 RDW (11.5 - 14.5 %) 13.9 13.9 Plt Count (130 - 400 /CUMM) 239 249 MPV (7.4 - 10.4 FL) 7.6 7.8 Gran % (42.2 - 75.2 %) 67.1 87.2 H Lymphocytes % (20.5 - 51.1 %) 20.5 8.8 L Monocytes % (1.7 - 9.3 %) 10.6 H 3.1 Eosinophils % (0 - 5 %) 1.2 0.5 Basophils % (0.0 - 2.0 %) 0.6 0.4 Absolute Granulocytes (1.4 - 6.5 /CUMM) 3.7 5.4 Absolute Lymphocytes (1.2 - 3.4 /CUMM) 1.1 L 0.5 L Absolute Monocytes (0.10 - 0.60 /CUMM) 0.6 0.2 Absolute Eosinophils (0.0 - 0.7 /CUMM) 0.1 0 Absolute Basophils (0.0 - 0.2 /CUMM) 0 0 06/13 06/13 1502 1050 Urines Urinalysis LIGHT H Urine Color (YEL,AMB,STR) YEL Urine Clarity (CLEAR) CLEAR Urine pH (5.0 - 8.0) 6.0 Ur Specific [place] (1.001 - 1.035) 1.015 Urine Protein (NEG,<30 MG/DL) 100 H Urine Ketones (NEG) NEG Urine Nitrite (NEG) NEG Urine Bilirubin (NEG) NEG Urine Urobilinogen (0.1 - 1.0 EU/dl) 0.2 Ur Leukocyte Esterase (NEG) SMALL H Ur Microscopic SEDIMENT EXAMINED Urine RBC (0 - 5 /HPF) RARE Urine WBC (0 - 2 /HPF) 15-25 H Ur Epithelial Cells (NONE,FEW) FEW Urine Bacteria (NEG/NONE) FEW H Urine Mucus (FEW,NONE) FEW Urine Hemoglobin (NEG) TRACE-LYSED Ur Random Creatinine Cancelled Urine Glucose (N MG/DL) NEG 06/13 06/13 06/12 1020 0652 1440 Chemistry Sodium (137 - 145 mmol/L) 126 L Potassium (3.5 - 5.1 mmol/L) 4.7 Chloride (98 - 107 mmol/L) 97 L Carbon Dioxide (22 - 30 mmol/L) 19 L Anion Gap (5 - 16) 9 BUN (7 - 17 mg/dL) 30 H Creatinine (0.5 - 1.0 mg/dL) 2.8 H Estimated GFR (>60 ml/min) 17 L BUN/Creatinine Ratio (7 - 25 %) 10.7 Triglycerides (<150 mg/dL) 110 Cholesterol (<200 MG/DL) 167 LDL Cholesterol, Calc (65 - 129 mg/dL) 94 HDL Cholesterol (40 - 60 mg/dL) 51 Cholesterol/HDL Ratio (0.00 - 4.23 %) 3 Hematology CBC w Diff NO MAN DIFF REQ WBC (4.8 - 10.8 /CUMM) 6.4 RBC (4.20 - 5.40 /CUMM) 2.46 L Hgb (12.0 - 16.0 G/DL) 7.4 *L Hct (37 - 47 %) 22.1 L MCV (81.0 - 99.0 FL) 89.9 MCH (27.0 - 31.0 PG) 30.0 MCHC (33.0 - 37.0 G/DL) 33.4 RDW (11.5 - 14.5 %) 14.1 Plt Count (130 - 400 /CUMM) 226 MPV (7.4 - 10.4 FL) 7.8 Gran % (42.2 - 75.2 %) 63.8 Lymphocytes % (20.5 - 51.1 %) 18.8 L Monocytes % (1.7 - 9.3 %) 11.5 H Eosinophils % (0 - 5 %) 5.0 Basophils % (0.0 - 2.0 %) 0.9 Absolute Granulocytes (1.4 - 6.5 /CUMM) 4.1 Absolute Lymphocytes (1.2 - 3.4 /CUMM) 1.2 Absolute Monocytes (0.10 - 0.60 /CUMM) 0.7 H Absolute Eosinophils (0.0 - 0.7 /CUMM) 0.3 Absolute Basophils (0.0 - 0.2 /CUMM) 0.1 Urines Urine Osmolality (300 - 1000 MOSM/KG) 149 L Ur Random Creatinine (mg/dL) 38.9 17.8 Urine Total Volume (600 - 1500 ML/24HR) 1350 Urine Creatinine (0.8 - 1.8 g/24HR) 0.5 L Ur Total Protein 24 Hr (42 - 255 mg/24HR) 2700.0 H Ur Sodium 24 Hour (30 - 90 mmol/L) 13 L Ur Potassium 24 Hour (25 - 125 mmol/24H) 21.6 L Assessment/Plan Assessment/Recommendations: 1. Anemia. This is multifactorial, and may be secondary to chronic illness, chronic kidney disease, and now component of GI bleeding. Hematocrit has been relatively stable for the last 48-72 hours. 2. GI bleed. The patient had black stool, guaiac positive, yesterday. There has been no stool today. Her emesis has been described as bloodless. Differential diagnosis includes esophagitis, peptic ulcer disease, vascular lesions such as angiodysplasias, etc. Recommendations * For now, continue solid diet * IV PPI * Parenteral antiemetics. * Follow CBC daily * Check INR * Consider transfusion of 1 unit of packed red blood cells to chief hemoglobin of greater than 8 * EGD once stable from a cardiopulmonary standpoint, perhaps after the weekend, after discussion with cardiology. If develops evidence of more rapid bleeding such as hematemesis, profuse melena, hematochezia, hypotension, tachycardia ( especially with drop in hematocrit) would proceed to urgent endoscopy over the weekend. Consult Acknowledgment - Thank you for your consult request.
[2017-06-15 15:23] VITALS: BP 150/70
--- NOTE | 2017-06-15 16:03 | PN- Nephrology ---
Assessment/Plan Nephrology Assessment: 1. Hyponatremia. Given the fact she has renal failure, she does not strictly meet the definition of SIADH. Her volume status to me is unreadable. Congestive heart failure or volume depletion Maurisio give one the same picture. 2. Weakness/dyspnea. She is short of breath whether she is sitting up or lying down. This could be related to her anemia as well as to her pulmonary process. I would favor transfusion. 3. Acute kidney injury. Resume creatinine is now 2.8. 4. Chronic kidney disease. Suggestion: 1. Favor transfusion 2. Their concerns with precipitating volume overload, and giving furosemide 40 mg IV after the transfusion may be in order Subjective Subjective: Pt seen with . c/o weakness and dyspnea Objective Vital Signs and I&Os Vital Signs Date Time Temp Pulse Resp B/P B/P Pulse O2 O2 Flow FiO2 Mean Ox Delivery Rate 06/15 1523 98.0 68 20 150/70 91 06/15 0952 66 140/86 06/15 0952 66 140/86 06/15 0800 95 Room Air Room Air 06/15 0741 97.5 66 20 140/86 95 Room Air / 0000 Room Air 06/14 2242 97.4 77 24 144/93 92 / 2202 74 152/80 06/14 2202 74 152/80 Intake & Output 06/15 1600 06/15 0400 06/14 1600 06/14 0400 06/13 1600 06/13 0400 Intake Total 1360 660 140 220 860 240 Output Total 1550 675 600 620 750 325 Balance -190 -15 -460 -400 110 -85 Intake, IV 600 300 Intake, Oral 760 360 140 220 860 240 Number 2 2 0 0 Bowel Movements Output, Urine 1550 675 600 620 750 325 Patient 185 lb 185 lb 183 lb 183 lb Weight Weight Bed scale Measurement Method Physical Exam General Appearance: well developed/nourished, no apparent distress Head: atraumatic, normal appearance Neck: normal inspection Respiratory: decreased breath sounds, wheezing, sounds tight, few wheezes Cardiovascular: regular rate/rhythm Abdomen: normal bowel sounds, soft, non-tender Back: normal inspection Extremities: normal inspection, normal capillary refill Neurologic/Psychiatric: no motor/sensory deficits, awake, alert Skin: intact, normal color Current Medications: Current Medications Sig/Nai Start time Last Medication Dose Route Stop Time Status Admin Acetaminophen 500 MG .STK-MED ONE 06/14 1735 DC PO / 1736 Acetaminophen 500 MG Q6P PRN 06/12 1545 AC 06/15 PO 1508 Azithromycin 500 MG DAILY / 1445 AC / PO 06/17 1001 0951 Benzonatate 100 MG TID 04/ 1000 AC 06/15 PO 0951 Docusate Sodium 100 MG DAILY NEEDED PRN 06/14 1645 DC 04 PO 1727 Ferrous Sulfate 325 MG 1400 / 1400 AC 06/15 PO 0951 Fluoxetine HCl 20 MG DAILY 06/15 1429 DC PO Furosemide 40 MG DAILY 06/14 1500 AC 06/15 PO 0951 Guaifenesin/Codeine 10 ML Q4P PRN 06/13 0245 AC 06/13 Phosphate PO 1109 Heparin Sodium 5,000 UNIT Q8 06/11 2200 DC 06/14 (Porcine) SC 1356 Hydralazine HCl 25 MG TID 06/14 2200 AC 06/15 PO 0952 Labetalol HCl 200 MG BID 06/14 2200 AC 06/15 PO 0952 Levothyroxine Sodium 0.088 MG DAILY AC 06/15 0700 AC 06/15 PO 0554 Lidocaine 1 PAT Q24H 06/12 1535 AC 06/15 EXT 1508 Nitroglycerin 0.4 MG DAILY 06/14 1909 CAN TOP Nitroglycerin 0.4 MG Q24H / 1600 AC 06/14 TOP 1529 Non-Formulary 1 UNIT 0730,1130,1630 04/ 1630 AC 06/15 Medication ANY 0800 Ondansetron HCl 4 MG Q6P PRN / 1630 AC / IV 1955 Pantoprazole Sodium 40 MG DAILY 06/15 1425 AC IV Polyethylene Glycol 17 GM DAILY PRN 06/14 1645 AC PO Prednisone 20 MG DAILY / 1000 DC / PO 06/15 1001 0951 Senna 187 MG DAILY PRN / 1645 DC / PO 1727 Senna/Docusate Sodium 1 TAB .STK-MED ONE 06/14 1724 DC PO 06/14 1725 Sodium Chloride 1,000 ML Q13H 06/15 0915 DC IV 06/15 2214 Sodium Chloride 1,000 ML Q13H / 1700 DC 04/ IV 06/15 0559 1730 Sodium Chloride 1,000 ML Q13H 06/14 1500 DC 06/14 IV 1534 Tramadol HCl 50 MG Q12P PRN 06/14 1945 AC PO Results Pertinent Lab Results: Laboratory Tests 06/15 06/14 06/14 0640 2220 1540 Chemistry Sodium (137 - 145 mmol/L) 122 L 121 L Potassium (3.5 - 5.1 mmol/L) 4.7 5.0 Chloride (98 - 107 mmol/L) 95 L 96 L Carbon Dioxide (22 - 30 mmol/L) 18 L 17 L Anion Gap (5 - 16) 9 8 BUN (7 - 17 mg/dL) 36 H 36 H Creatinine (0.5 - 1.0 mg/dL) 2.8 H 2.5 H Estimated GFR (>60 ml/min) 17 L 19 L BUN/Creatinine Ratio (7 - 25 %) 12.9 14.4 Lactic Acid (0.7 - 2.1 mmol/L) 0.8 Hematology CBC w Diff NO MAN DIFF REQ WBC (4.8 - 10.8 /CUMM) 5.5 RBC (4.20 - 5.40 /CUMM) 2.54 L Hgb (12.0 - 16.0 G/DL) 7.7 L Hct (37 - 47 %) 22.6 L MCV (81.0 - 99.0 FL) 89.1 MCH (27.0 - 31.0 PG) 30.2 MCHC (33.0 - 37.0 G/DL) 33.9 RDW (11.5 - 14.5 %) 13.7 Plt Count (130 - 400 /CUMM) 248 MPV (7.4 - 10.4 FL) 7.6 Gran % (42.2 - 75.2 %) 66.7 Lymphocytes % (20.5 - 51.1 %) 23.9 Monocytes % (1.7 - 9.3 %) 7.1 Eosinophils % (0 - 5 %) 1.9 Basophils % (0.0 - 2.0 %) 0.4 Absolute Granulocytes (1.4 - 6.5 /CUMM) 3.7 Absolute Lymphocytes (1.2 - 3.4 /CUMM) 1.3 Absolute Monocytes (0.10 - 0.60 /CUMM) 0.4 Absolute Eosinophils (0.0 - 0.7 /CUMM) 0.1 Absolute Basophils (0.0 - 0.2 /CUMM) 0 06/14 06/13 0644 1648 Chemistry Sodium (137 - 145 mmol/L) 122 L Potassium (3.5 - 5.1 mmol/L) 5.0 Chloride (98 - 107 mmol/L) 95 L Carbon Dioxide (22 - 30 mmol/L) 18 L Anion Gap (5 - 16) 8 BUN (7 - 17 mg/dL) 33 H Creatinine (0.5 - 1.0 mg/dL) 2.7 H Estimated GFR (>60 ml/min) 17 L BUN/Creatinine Ratio (7 - 25 %) 12.2 Serum Osmolality (285 - 295 MOSM/KG) 266 L Hematology CBC w Diff NO MAN DIFF REQ NO MAN DIFF REQ WBC (4.8 - 10.8 /CUMM) 5.5 6.2 RBC (4.20 - 5.40 /CUMM) 2.52 L 2.74 L Hgb (12.0 - 16.0 G/DL) 7.6 L 8.5 L Hct (37 - 47 %) 22.7 L 24.8 L MCV (81.0 - 99.0 FL) 90.4 90.2 MCH (27.0 - 31.0 PG) 30.2 31.1 H MCHC (33.0 - 37.0 G/DL) 33.4 34.4 RDW (11.5 - 14.5 %) 13.9 13.9 Plt Count (130 - 400 /CUMM) 239 249 MPV (7.4 - 10.4 FL) 7.6 7.8 Gran % (42.2 - 75.2 %) 67.1 87.2 H Lymphocytes % (20.5 - 51.1 %) 20.5 8.8 L Monocytes % (1.7 - 9.3 %) 10.6 H 3.1 Eosinophils % (0 - 5 %) 1.2 0.5 Basophils % (0.0 - 2.0 %) 0.6 0.4 Absolute Granulocytes (1.4 - 6.5 /CUMM) 3.7 5.4 Absolute Lymphocytes (1.2 - 3.4 /CUMM) 1.1 L 0.5 L Absolute Monocytes (0.10 - 0.60 /CUMM) 0.6 0.2 Absolute Eosinophils (0.0 - 0.7 /CUMM) 0.1 0 Absolute Basophils (0.0 - 0.2 /CUMM) 0 0 06/13 06/13 1502 1050 Urines Urinalysis LIGHT H Urine Color (YEL,AMB,STR) YEL Urine Clarity (CLEAR) CLEAR Urine pH (5.0 - 8.0) 6.0 Ur Specific [place] (1.001 - 1.035) 1.015 Urine Protein (NEG,<30 MG/DL) 100 H Urine Ketones (NEG) NEG Urine Nitrite (NEG) NEG Urine Bilirubin (NEG) NEG Urine Urobilinogen (0.1 - 1.0 EU/dl) 0.2 Ur Leukocyte Esterase (NEG) SMALL H Ur Microscopic SEDIMENT EXAMINED Urine RBC (0 - 5 /HPF) RARE Urine WBC (0 - 2 /HPF) 15-25 H Ur Epithelial Cells (NONE,FEW) FEW Urine Bacteria (NEG/NONE) FEW H Urine Mucus (FEW,NONE) FEW Urine Hemoglobin (NEG) TRACE-LYSED Ur Random Creatinine Cancelled Urine Glucose (N MG/DL) NEG 06/13 06/13 1020 0652 Chemistry Sodium (137 - 145 mmol/L) 126 L Potassium (3.5 - 5.1 mmol/L) 4.7 Chloride (98 - 107 mmol/L) 97 L Carbon Dioxide (22 - 30 mmol/L) 19 L Anion Gap (5 - 16) 9 BUN (7 - 17 mg/dL) 30 H Creatinine (0.5 - 1.0 mg/dL) 2.8 H Estimated GFR (>60 ml/min) 17 L BUN/Creatinine Ratio (7 - 25 %) 10.7 Triglycerides (<150 mg/dL) 110 Cholesterol (<200 MG/DL) 167 LDL Cholesterol, Calc (65 - 129 mg/dL) 94 HDL Cholesterol (40 - 60 mg/dL) 51 Cholesterol/HDL Ratio (0.00 - 4.23 %) 3 Hematology CBC w Diff NO MAN DIFF REQ WBC (4.8 - 10.8 /CUMM) 6.4 RBC (4.20 - 5.40 /CUMM) 2.46 L Hgb (12.0 - 16.0 G/DL) 7.4 *L Hct (37 - 47 %) 22.1 L MCV (81.0 - 99.0 FL) 89.9 MCH (27.0 - 31.0 PG) 30.0 MCHC (33.0 - 37.0 G/DL) 33.4 RDW (11.5 - 14.5 %) 14.1 Plt Count (130 - 400 /CUMM) 226 MPV (7.4 - 10.4 FL) 7.8 Gran % (42.2 - 75.2 %) 63.8 Lymphocytes % (20.5 - 51.1 %) 18.8 L Monocytes % (1.7 - 9.3 %) 11.5 H Eosinophils % (0 - 5 %) 5.0 Basophils % (0.0 - 2.0 %) 0.9 Absolute Granulocytes (1.4 - 6.5 /CUMM) 4.1 Absolute Lymphocytes (1.2 - 3.4 /CUMM) 1.2 Absolute Monocytes (0.10 - 0.60 /CUMM) 0.7 H Absolute Eosinophils (0.0 - 0.7 /CUMM) 0.3 Absolute Basophils (0.0 - 0.2 /CUMM) 0.1 Urines Urine Osmolality (300 - 1000 MOSM/KG) 149 L Ur Random Creatinine (mg/dL) 38.9 Urine Total Volume (600 - 1500 ML/24HR) 1350 Urine Creatinine (0.8 - 1.8 g/24HR) 0.5 L Ur Total Protein 24 Hr (42 - 255 mg/24HR) 2700.0 H Ur Sodium 24 Hour (30 - 90 mmol/L) 13 L Ur Potassium 24 Hour (25 - 125 mmol/24H) 21.6 L
[2017-06-15 22:24] VITALS: BP 136/70
[2017-06-16 01:13] LABS: ABSOLUTE BASOPHIL COUNT 0 /CUMM (0.0-0.2); ABSOLUTE EOSINOPHIL COUNT 0 /CUMM (0.0-0.7); ABSOLUTE GRANULOCYTE CT 4.5 /CUMM (1.4-6.5); ABSOLUTE LYMPH COUNT 0.6 /CUMM (1.2-3.4); ABSOLUTE MONOCYTE COUNT 0.3 /CUMM (0.10-0.60); BASOPHIL % 0.2 % (0.0-2.0); EOSINOPHIL % 0.1 % (0-5); GRANULOCYTE % 82.8 % (42.2-75.2); HEMATOCRIT 26.1 % (37-47); MEAN CORPUSCULAR HGB CONC 33.9 G/DL (33.0-37.0); MEAN CORPUSCULAR VOLUME 88.6 FL (81.0-99.0); MEAN PLATELET VOLUME 7.3 FL (7.4-10.4); PLATELET COUNT 254 /CUMM (130-400); RBC DISTRIBUTION WIDTH 13.6 % (11.5-14.5); RED BLOOD CELL CT 2.95 /CUMM (4.20-5.40); WHITE BLOOD CELL COUNT 5.4 /CUMM (4.8-10.8)
[2017-06-16 01:21] LABS: PT 11.3 SEC (9.4-12.5)
[2017-06-16 07:11] VITALS: BP 152/64
[2017-06-16 07:42] LABS: ABSOLUTE BASOPHIL COUNT 0 /CUMM (0.0-0.2); ABSOLUTE EOSINOPHIL COUNT 0 /CUMM (0.0-0.7); ABSOLUTE GRANULOCYTE CT 4.1 /CUMM (1.4-6.5); ABSOLUTE MONOCYTE COUNT 0.5 /CUMM (0.10-0.60); BASOPHIL % 0.2 % (0.0-2.0); EOSINOPHIL % 0.8 % (0-5); GRANULOCYTE % 72.3 % (42.2-75.2); HEMATOCRIT 25.4 % (37-47); MEAN CORPUSCULAR HGB 30.5 PG (27.0-31.0); MEAN CORPUSCULAR HGB CONC 34.2 G/DL (33.0-37.0); MEAN CORPUSCULAR VOLUME 89.2 FL (81.0-99.0); MEAN PLATELET VOLUME 7.6 FL (7.4-10.4); PLATELET COUNT 232 /CUMM (130-400); RBC DISTRIBUTION WIDTH 14.1 % (11.5-14.5); RED BLOOD CELL CT 2.85 /CUMM (4.20-5.40); WHITE BLOOD CELL COUNT 5.6 /CUMM (4.8-10.8)
--- NOTE | 2017-06-16 08:53 | PN- Housestaff ---
[facility] Subjective Follow-up For: Hyponatremia Viral syndrome Acute on chronic kidney injury Tele-Events Since Last Visit: Patient remained in sinus rhythm with heart rate 5373 Subjective: No overnight events. Patient remained afebrile. Seen and examined this morning. Patient reported having tiredness. Patient denied any chest pain, palpitation, nausea, vomiting, chills, fever, abdominal pain dysuria. Review of Systems Constitutional: Reports: weakness. Denies: chills, fever. EENTM: Reports: no symptoms. Cardiovascular: Denies: chest pain, palpitations. Respiratory: Reports: no symptoms. Gastrointestinal: Reports: no symptoms. Genitourinary: Reports: no symptoms. Musculoskeletal: Reports: no symptoms. Neurological/Psychological: Reports: no symptoms. Objective Last 24 Hrs of Vital Signs/I&O Vital Signs Date Time Temp Pulse Resp B/P B/P Pulse O2 O2 Flow FiO2 Mean Ox Delivery Rate 06/16 0711 97.8 64 20 152/64 96 Room Air 06/16 0000 Nasal 2.0L Cannula 06/15 2224 97.7 82 22 136/70 94 Room Air 06/15 2115 84 136/70 06/15 2115 70 136/70 06/15 1738 72 170/90 06/15 1600 95 Nasal 2.0L Cannula 06/15 1523 98.0 68 20 150/70 91 Intake & Output 06/16 1600 06/16 0800 04/08 0000 Intake Total 110 700 Output Total 450 Balance 110 250 Intake, Blood 350 Product Intake, IV 10 Intake, Oral 100 350 Number 1 Bowel Movements Output, Urine 450 Patient 184 lb Weight Physical Exam General Appearance: Alert, Oriented X3, Cooperative Skin Temp/Moisture Exam: Warm/Dry Sepsis Skin Exam (color): Normal for Ethnicity HEENT: Atraumatic, PERRLA, EOMI Neck: Supple Cardiovascular: Normal S1, Normal S2 Lungs: Clear to Auscultation Abdomen: Soft, No Tenderness Neurological: Normal Speech, Normal Tone Extremities: No Edema Assessment/Plan Assessment: 72-year-old female with past medical history significant for hypertension and hypothyroidism presented with worsening shortness of breath which most likely is multifactorial due to her anemia, viral syndrome and probably CHF is also contribution to her symptoms. She was also noted to have elevated creatinine which most likely is acute on chronic due to her hypertensive nephrosclerosis and also found to be hyponatremic most likely due to renal failure and SIADH. We are following the patient on telemetry floor for following problems. Hyponatremia: -Probably due to SIADH -Fluid restriction -We will follow the nephrology recommendations -Monitor BP Generalized weakness: -Probably due to hyponatremia and bladder syndrome -PT evaluation -Zofran when necessary for nausea History of hypertension: -Continue labetalol History of hypothyroidism: -Continue levothyroxine DVT prophylaxis: Mechanical and subcutaneous heparin CODE STATUS: Full code Problem List: 1. Hyponatremia 2. Viral respiratory infection 3. CHF (congestive heart failure) Pain Ratin Pain Location: NONE Pain Goal: Remain pain free Pain Plan: PAIN PATHWAY Tomorrow's Labs & Rationales: CBC/BEP Aleta CASH,Jerry 06/16/17 1222: Attending MD Review Statement Attending Statement Attending Assessment/Plan: Attending MD Statement: examined this patient, discuss w/resident/PA/THERMOMETER TESTER, agreed w/resident/PA/THERMOMETER TESTER, reviewed EMR data (avail) Attending Assessment/Plan: Patient sitting in chair this morning. Patient is status post 1 unit of blood transfusion yesterday. She complains of for nausea after taking morning pills. This morning she was able to eat half of her breakfast. Her appetite has been very poor and by mouth intake for food is still poor . Her vital signs currently are stable and she is afebrile with a saturation 96% on room air. Her highest the BP recorded was 170/90 yesterday. Chest exam shows a decreased air entry with a few crackles. Abdomen soft nontender. Neuro exam is nonfocal. No edema is noted. Hematocrit is 25.4 and creatinine is 2.6 which is slightly decreased from 2.8 yesterday. Sodium level is 122 CXR 06/15 Mild interval improvement in interstitial pulmonary edema. No new consolidation or significant pleural fluid. Assessment plan History of CHF Acute and chronic renal failure Severe hyponatremia Nausea Poor appetite GI bleed- GI consult note reviewed; patient status post 1 unit of blood transferring yesterday Plan Recheck BEP tomorrow Continue Zofran when necessary for nausea Encourage oral diet Continue PPI Continue to monitor CBC for anemia I will suggest stopping azithromycin since am not clear about indication of its use
--- NOTE | 2017-06-16 13:50 | PN- Gastroenterology ---
Assessment/Plan GI Assessment/Recommendations: Assessment/Recommendations: 1. Anemia. This is multifactorial, and may be secondary to chronic illness, chronic kidney disease, and now component of GI bleeding. Hematocrit has recent appropriate after a single unit transfusion. 2. GI bleed. Continuing black stool by report. There has been no stool today. Her emesis has been described as bloodless. Differential diagnosis includes esophagitis, peptic ulcer disease, vascular lesions such as angiodysplasias ( less likely given nausea), etc. Recommendations * Continue solid diet; nothing by mouth after midnight * Continue IV PPI * Parenteral antiemetics. * Follow CBC daily; maintain hemoglobin greater than 8 with transfusion as necessary * EGD tomorrow. * Please contact GI if the patient develops evidence of more rapid bleeding such as hematemesis, profuse melena, hematochezia, hypotension, tachycardia ( especially with drop in hematocrit); would consider urgent endoscopy. Subjective Subjective: Nausea markedly improved. No vomiting. No heartburn, indigestion, abdominal pain. The patient had recurrent black stool yesterday after my consultation, and none today. No hematemesis or red blood per rectum. No further diaphoresis. Objective Vital Signs and I&Os Vital Signs Date Time Temp Pulse Resp B/P B/P Pulse O2 O2 Flow FiO2 Mean Ox Delivery Rate 06/16 1025 64 152/64 06/16 1024 64 152/64 06/16 0800 96 Room Air Room Air 06/16 0711 97.8 64 20 152/64 96 Room Air 06/16 0000 Nasal 2.0L Cannula 06/15 2224 97.7 82 22 136/70 94 Room Air 06/15 2115 84 136/70 06/15 2115 70 136/70 06/15 1738 72 170/90 06/15 1600 95 Nasal 2.0L Cannula 06/15 1523 98.0 68 20 150/70 91 Intake & Output 06/16 1600 06/16 0400 06/15 1600 06/15 0400 06/14 1600 06/14 0400 Intake Total 854 839 7491 660 140 220 Output Total 450 1550 675 600 620 Balance 110 250 -190 -15 -460 -400 Intake, Blood 350 Product Intake, IV 10 600 300 Intake, Oral 100 350 760 360 140 220 Number 1 2 2 0 Bowel Movements Output, Urine 450 1550 675 600 620 Patient 184 lb 185 lb 185 lb 183 lb Weight Weight Bed scale Measurement Method Physical Exam: Normal cognition. No jaundice/scleral icterus. No adenopathy. Abdomen soft, nontender. Current Medications: Current Medications Sig/Nai Start time Last Medication Dose Route Stop Time Status Admin Acetaminophen 500 MG .STK-MED ONE 06/15 2104 DC PO 06/15 2105 Acetaminophen 650 MG .STK-MED ONE 06/15 1503 DC PO 06/15 1504 Acetaminophen 500 MG Q6P PRN 06/12 1545 AC 06/16 PO 1033 Azithromycin 500 MG DAILY 06/14 1445 AC 06/16 PO 06/17 1001 1024 Benzonatate 100 MG TID 06/13 1000 AC 06/16 PO 1024 Ferrous Sulfate 325 MG 1400 06/12 1400 AC 06/15 PO 0951 Fluoxetine HCl 20 MG DAILY 06/15 1429 DC PO Furosemide 40 MG DAILY 06/14 1500 AC 06/16 PO 1024 Guaifenesin/Codeine 10 ML Q4P PRN 06/13 0245 AC 06/13 Phosphate PO 1109 Hydralazine HCl 25 MG TID 06/14 2200 AC 06/16 PO 1024 Labetalol HCl 200 MG BID 06/14 2200 AC 06/16 PO 1025 Levothyroxine Sodium 0.088 MG DAILY AC 06/15 0700 AC 06/16 PO 0557 Lidocaine 1 PAT Q24H 06/12 1535 AC 06/15 EXT 1508 Nitroglycerin 0.4 MG Q24H 06/12 1600 AC 06/15 TOP 1737 Non-Formulary 1 UNIT 0730,1130,1630 06/13 1630 AC 06/15 Medication ANY 0800 Ondansetron HCl 4 MG Q6P PRN 06/13 1630 AC 06/16 IV 1024 Pantoprazole Sodium 40 MG DAILY 06/15 1425 AC 06/16 IV 1024 Polyethylene Glycol 17 GM DAILY PRN 06/14 1645 AC PO Tramadol HCl 50 MG Q12P PRN 06/14 1945 AC PO Results Pertinent Lab Results: Laboratory Tests 06/16 06/16 0641 0030 Chemistry Sodium (137 - 145 mmol/L) 122 L 121 L Potassium (3.5 - 5.1 mmol/L) 5.1 5.2 H Chloride (98 - 107 mmol/L) 97 L 96 L Carbon Dioxide (22 - 30 mmol/L) 17 L 17 L Anion Gap (5 - 16) 9 9 BUN (7 - 17 mg/dL) 40 H 40 H Creatinine (0.5 - 1.0 mg/dL) 2.6 H 2.8 H Estimated GFR (>60 ml/min) 18 L 17 L BUN/Creatinine Ratio (7 - 25 %) 15.4 14.3 Coagulation PT (9.4 - 12.5 SEC) 11.3 INR (0.90 - 1.19) 1.04 Hematology CBC w Diff NO MAN DIFF REQ NO MAN DIFF REQ WBC (4.8 - 10.8 /CUMM) 5.6 5.4 RBC (4.20 - 5.40 /CUMM) 2.85 L 2.95 L Hgb (12.0 - 16.0 G/DL) 8.7 L 8.9 L Hct (37 - 47 %) 25.4 L 26.1 L MCV (81.0 - 99.0 FL) 89.2 88.6 MCH (27.0 - 31.0 PG) 30.5 30.0 MCHC (33.0 - 37.0 G/DL) 34.2 33.9 RDW (11.5 - 14.5 %) 14.1 13.6 Plt Count (130 - 400 /CUMM) 232 254 MPV (7.4 - 10.4 FL) 7.6 7.3 L Gran % (42.2 - 75.2 %) 72.3 82.8 H Lymphocytes % (20.5 - 51.1 %) 18.1 L 11.9 L Monocytes % (1.7 - 9.3 %) 8.6 5.0 Eosinophils % (0 - 5 %) 0.8 0.1 Basophils % (0.0 - 2.0 %) 0.2 0.2 Absolute Granulocytes (1.4 - 6.5 /CUMM) 4.1 4.5 Absolute Lymphocytes (1.2 - 3.4 /CUMM) 1.0 L 0.6 L Absolute Monocytes (0.10 - 0.60 /CUMM) 0.5 0.3 Absolute Eosinophils (0.0 - 0.7 /CUMM) 0 0 Absolute Basophils (0.0 - 0.2 /CUMM) 0 0 /07 /07 04/06 1800 0640 2220 Chemistry Sodium (137 - 145 mmol/L) Cancelled 122 L 121 L Potassium (3.5 - 5.1 mmol/L) Cancelled 4.7 5.0 Chloride (98 - 107 mmol/L) Cancelled 95 L 96 L Carbon Dioxide (22 - 30 mmol/L) Cancelled 18 L 17 L Anion Gap (5 - 16) Cancelled 9 8 BUN (7 - 17 mg/dL) Cancelled 36 H 36 H Creatinine (0.5 - 1.0 mg/dL) Cancelled 2.8 H 2.5 H Estimated GFR (>60 ml/min) 17 L 19 L BUN/Creatinine Ratio (7 - 25 %) Cancelled 12.9 14.4 Coagulation PT Cancelled INR Cancelled Hematology CBC w Diff NO MAN DIFF REQ WBC (4.8 - 10.8 /CUMM) 5.5 RBC (4.20 - 5.40 /CUMM) 2.54 L Hgb (12.0 - 16.0 G/DL) 7.7 L Hct (37 - 47 %) 22.6 L MCV (81.0 - 99.0 FL) 89.1 MCH (27.0 - 31.0 PG) 30.2 MCHC (33.0 - 37.0 G/DL) 33.9 RDW (11.5 - 14.5 %) 13.7 Plt Count (130 - 400 /CUMM) 248 MPV (7.4 - 10.4 FL) 7.6 Gran % (42.2 - 75.2 %) 66.7 Lymphocytes % (20.5 - 51.1 %) 23.9 Monocytes % (1.7 - 9.3 %) 7.1 Eosinophils % (0 - 5 %) 1.9 Basophils % (0.0 - 2.0 %) 0.4 Absolute Granulocytes (1.4 - 6.5 /CUMM) 3.7 Absolute Lymphocytes (1.2 - 3.4 /CUMM) 1.3 Absolute Monocytes (0.10 - 0.60 /CUMM) 0.4 Absolute Eosinophils (0.0 - 0.7 /CUMM) 0.1 Absolute Basophils (0.0 - 0.2 /CUMM) 0 06/14 06/14 1540 0644 Chemistry Sodium (137 - 145 mmol/L) 122 L Potassium (3.5 - 5.1 mmol/L) 5.0 Chloride (98 - 107 mmol/L) 95 L Carbon Dioxide (22 - 30 mmol/L) 18 L Anion Gap (5 - 16) 8 BUN (7 - 17 mg/dL) 33 H Creatinine (0.5 - 1.0 mg/dL) 2.7 H Estimated GFR (>60 ml/min) 17 L BUN/Creatinine Ratio (7 - 25 %) 12.2 Serum Osmolality (285 - 295 MOSM/KG) 266 L Lactic Acid (0.7 - 2.1 mmol/L) 0.8 Hematology CBC w Diff NO MAN DIFF REQ WBC (4.8 - 10.8 /CUMM) 5.5 RBC (4.20 - 5.40 /CUMM) 2.52 L Hgb (12.0 - 16.0 G/DL) 7.6 L Hct (37 - 47 %) 22.7 L MCV (81.0 - 99.0 FL) 90.4 MCH (27.0 - 31.0 PG) 30.2 MCHC (33.0 - 37.0 G/DL) 33.4 RDW (11.5 - 14.5 %) 13.9 Plt Count (130 - 400 /CUMM) 239 MPV (7.4 - 10.4 FL) 7.6 Gran % (42.2 - 75.2 %) 67.1 Lymphocytes % (20.5 - 51.1 %) 20.5 Monocytes % (1.7 - 9.3 %) 10.6 H Eosinophils % (0 - 5 %) 1.2 Basophils % (0.0 - 2.0 %) 0.6 Absolute Granulocytes (1.4 - 6.5 /CUMM) 3.7 Absolute Lymphocytes (1.2 - 3.4 /CUMM) 1.1 L Absolute Monocytes (0.10 - 0.60 /CUMM) 0.6 Absolute Eosinophils (0.0 - 0.7 /CUMM) 0.1 Absolute Basophils (0.0 - 0.2 /CUMM) 0 06/13 06/13 1648 1502 Hematology CBC w Diff NO MAN DIFF REQ WBC (4.8 - 10.8 /CUMM) 6.2 RBC (4.20 - 5.40 /CUMM) 2.74 L Hgb (12.0 - 16.0 G/DL) 8.5 L Hct (37 - 47 %) 24.8 L MCV (81.0 - 99.0 FL) 90.2 MCH (27.0 - 31.0 PG) 31.1 H MCHC (33.0 - 37.0 G/DL) 34.4 RDW (11.5 - 14.5 %) 13.9 Plt Count (130 - 400 /CUMM) 249 MPV (7.4 - 10.4 FL) 7.8 Gran % (42.2 - 75.2 %) 87.2 H Lymphocytes % (20.5 - 51.1 %) 8.8 L Monocytes % (1.7 - 9.3 %) 3.1 Eosinophils % (0 - 5 %) 0.5 Basophils % (0.0 - 2.0 %) 0.4 Absolute Granulocytes (1.4 - 6.5 /CUMM) 5.4 Absolute Lymphocytes (1.2 - 3.4 /CUMM) 0.5 L Absolute Monocytes (0.10 - 0.60 /CUMM) 0.2 Absolute Eosinophils (0.0 - 0.7 /CUMM) 0 Absolute Basophils (0.0 - 0.2 /CUMM) 0 Urines Ur Random Creatinine Cancelled
[2017-06-16 14:58] VITALS: BP 122/60
[2017-06-16 21:37] VITALS: BP 138/62
[2017-06-17 07:06] VITALS: BP 132/64
--- NOTE | 2017-06-17 07:26 | PN- Housestaff ---
Delvin CASH,[facility] 06/17/17 0725: Subjective Follow-up For: SOB CHF anemia hyponatremia hyperkalemia fall ckd Tele-Events Since Last Visit: SB/SR HR 54-64 Subjective: No acute events overnight. Patient states that she is continuing to have black stool. States she couldn't sleep last night due to her mouth being dry as she is nothing by mouth for an EGD. Continues have low back pain. Review of Systems Constitutional: Reports: see HPI. Objective Last 24 Hrs of Vital Signs/I&O Vital Signs Date Time Temp Pulse Resp B/P B/P Pulse O2 O2 Flow FiO2 Mean Ox Delivery Rate 06/17 0750 69 132/64 06/17 0750 69 132/64 06/17 0706 98.2 69 22 132/64 97 Room Air 06/17 0000 Room Air 06/16 2257 62 138/60 06/16 2257 62 138/60 06/16 2137 98.1 66 22 138/62 98 Room Air 06/16 1703 65 144/62 06/16 1600 Room Air 06/16 1458 98.0 63 18 122/60 93 Intake & Output 06/17 1600 06/17 0800 06/17 0000 Intake Total 5 375 Output Total 950 Balance 5 -575 Intake, Oral 5 375 Number 0 Bowel Movements Output, Urine 950 Patient 186 lb Weight Weight Bed scale Measurement Method Physical Exam General Appearance: Alert, Oriented X3, Cooperative, Moderate Distress HEENT: ?increase edema of face. increased edema of upper eye lids Cardiovascular: Regular Rate, Normal S1, Normal S2 Lungs: decreased basal lung sounds Abdomen: Normal Bowel Sounds, Soft, No Tenderness Extremities: trace/LE 1+ edema Vascular: 2+ radial pulses Assessment/Plan Assessment: 72-year-old female with a past medical history of hypertension and hypothyroidism presenting for 4 days of shortness of breath. #SOB more likely due to viral syndrome and acute onset of decompensated CHF CXR: Interstitial pulmonary edema. No focal consolidation. trop <0.01x3 ProBNP 4520 TSH 4.65 (high), T4 7.8 Doppler ultrasound negative for DVT Rapid flu negative Echo: 60% repeat-CXR: Cardiomegaly and CHF -Completed azithromycin x5days, prednisone 20 mg X3 days -Continue Tessalon Perles for cough -cont Lasix for chf and hyponatremia -1L fluid restriction -Continue cardiology recommendations #anemia with black stools H/H 7.4/22.1 -> 9.0, has received 1 unit PRBC Baseline 02/07 Fe 36,TBC 259, Ferritin 122 B12 >1000, folate normal Reticulocyte, haptoglobin normal Hemmoccult + EGD: Mild proximal gastropathy -Continue outpatient eval for colonoscopy and PillCam -cont ferrous sulfate and protonix -consider epo level -Guaiac all stools -monitor for signs of bleeding -follow h/h -goal hgb >7 #Hyponatremia NA 127 -> 129 -> 122 -> 127 -treated with with 1LNS with lasix 40mg daily -follow nephro recs -cont monitoring BEP #hyperkalemia K5.5 -> 4.7 -> 5.0 1x kayexalate given History of hyperkalemia from ESTHELA inhibitor -monitor bep #ckd stage 3 CR 2.7 (2.4 at baseline) Previous renal ultrasound:1. Both kidneys demonstrate increased parenchymal echogenicity and cortical thinning, most consistent with medical renal disease. 2. No renal calculi or hydronephrosis bilaterally. 3. Small bilateral renal cysts. Lipid panel normal Urine osm 149 24 hr total protein 2700 -cont following nephro #htn -cont nitro patch and labetalol 200mg BID -Continue Lasix nephro -cont hydralazine per cards -hold lisinopril due to REGULO/ckd #Fall Right shoulder: Age-indeterminate cortical irregularity of the lateral scapula near the glenoid, which could be chronic Right elbow: No acute findings. -pain control #facial swelling -Stopped hydralazine -Continue lemon sours for possible parotiditis #back pain Chronic, relieved with palpiation -rice sock -cont tramadol -Stop lidocaine patch, start diclofenac gel #chronic medical conditions: Hypothyroidism -Continue levothyroxine #full code #dvt ppx - restarting sc heparin Problem List: 1. Viral respiratory infection 2. Anemia 3. CKD (chronic kidney disease) 4. Hyponatremia 5. Hyperkalemia 6. CHF (congestive heart failure) 7. Fall Pain Ratin Pain Location: low back Pain Goal: Pain 4 or less Pain Plan: diclofenace gel heat Tomorrow's Labs & Rationales: cbc bep Aleta CASH,Jerry 06/17/17 1627: Attending MD Review Statement Attending Statement Attending Assessment/Plan: Attending MD Statement: examined this patient, discuss w/resident/PA/SLITTER SCORER CUT OFF OPERATOR, agreed w/resident/PA/SLITTER SCORER CUT OFF OPERATOR, reviewed EMR data (avail) Attending Assessment/Plan: Patient sitting in chair this morning. She is nothing by mouth for EGD today. She reports a decrease in nausea. Appetite remains somewhat poor. She has a complains of lower back pain. C Her vital signs currently are stable and she is afebrile with a saturation 96% on room air. Her highest the BP recorded was 144/62. Chest exam shows a decreased air entry with a few crackles. Abdomen soft nontender. Neuro exam is nonfocal. No edema is noted. Hematocrit is 26.7 and creatinine is 2.9 which is slightly increased from yesterday. Sodium level is 127 CXR / Mild interval improvement in interstitial pulmonary edema. No new consolidation or significant pleural fluid. Assessment plan History of CHF Acute and chronic renal failure Severe hyponatremia Nausea Poor appetite GI bleed- GI consult note reviewed; patient status post 1 unit of blood transferring yesterday Plan For EGD today- see report below Recheck BEP tomorrow Continue Zofran when necessary for nausea Trial of for heat pad for lower back pain; also try diclofenac cream rub 3 times a day; can DC lidocaine patch Encourage oral diet Continue PPI Continue to monitor CBC for anemia Note EGD report shows mild proximal gastropathy. Patient may need outpatient colonoscopy or PillCam study.
[2017-06-17 07:57] LABS: ABSOLUTE BASOPHIL COUNT 0 /CUMM (0.0-0.2); ABSOLUTE EOSINOPHIL COUNT 0.2 /CUMM (0.0-0.7); ABSOLUTE GRANULOCYTE CT 4.7 /CUMM (1.4-6.5); ABSOLUTE LYMPH COUNT 0.9 /CUMM (1.2-3.4); ABSOLUTE MONOCYTE COUNT 0.5 /CUMM (0.10-0.60); BASOPHIL % 0.5 % (0.0-2.0); EOSINOPHIL % 3.8 % (0-5); GRANULOCYTE % 74.1 % (42.2-75.2); HEMATOCRIT 26.7 % (37-47); MEAN CORPUSCULAR HGB 30.4 PG (27.0-31.0); MEAN CORPUSCULAR HGB CONC 33.8 G/DL (33.0-37.0); MEAN CORPUSCULAR VOLUME 89.8 FL (81.0-99.0); MEAN PLATELET VOLUME 7.2 FL (7.4-10.4); PLATELET COUNT 252 /CUMM (130-400); RBC DISTRIBUTION WIDTH 14.3 % (11.5-14.5); RED BLOOD CELL CT 2.98 /CUMM (4.20-5.40); WHITE BLOOD CELL COUNT 6.4 /CUMM (4.8-10.8)
--- NOTE | 2017-06-17 13:31 | Proc Note Endoscopy ---
Endoscopy Procedure Procedure Date: 06/17/17 Procedure Type: EGD w/biopsy Upholsterer Outside: Scott Oglesby M.D. ASA Classification: III Indications: GI bleed: Melena, anemia Instrument: diagnostic gastroscope Meds Received: OLGA Patient's Tolerance: good Complications: none Extent Reached: distal duodenum Procedure: The patient signed informed consent, and was medicated. Lidocaine pharyngeal spray was administered. Pulse oximetry, blood pressure and cardiac monitoring were performed continuously throughout the procedure. The Olympus high- definition gastroscope was inserted into the mouth and advanced to the duodenum. Retroflexion was performed within the stomach to examine the cardia. Careful examination was performed. Findings: The esophagus had normal caliber and contour. There were no varices. The mucosa was intact and normal throughout. The GE junction at 40 cm was normal. There was no hiatal hernia. Stomach had normal distention and active peristalsis. There was no old or fresh blood within the gastric cavity. The cardia was normal. There was patchy raised mucosa in the fundus, with several fine erosions. 2 biopsies were obtained in this area. The mucosa of the body and antrum was normal. 2 antral biopsies were obtained. The pyloric channel was normal. The duodenal bulb was normal. There was no erosion, ulceration or deformity. The mucosa and folds of the second and third portions of the duodenum were normal. Impression: * Mild proximal gastropathy Recommendations: * Await pathology * Regular diet * Empiric PPI daily * CBC daily * Continue evaluation as outpatient, to include colonoscopy and possible PillCam small bowel capsule endoscopy CC: Dwight CASH,Emmie
[2017-06-17 14:55] VITALS: BP 142/80
--- NOTE | 2017-06-17 20:21 | PN- Cardiology ---
Subjective Subjective: * Cough and shortness of breath is resolved. No chest discomfort. Her nausea is also improved. * Normal EF on echo with normal RV pressures. Mild to moderate MR and TR. * creatinine 2.9 and sodium 127 * severe anemia persists without appropriate rise in reticulocyte count Objective Vital Signs and I&Os Vital Signs Date Time Temp Pulse Resp B/P B/P Pulse O2 O2 Flow FiO2 Mean Ox Delivery Rate 06/17 1530 78 142/80 06/17 1455 97.9 78 20 142/80 96 Room Air 06/17 0750 69 132/64 06/17 0750 69 132/64 06/17 0706 98.2 69 22 132/64 97 Room Air 06/17 0000 Room Air 06/16 2257 62 138/60 06/16 2257 62 138/60 06/16 2137 98.1 66 22 138/62 98 Room Air Intake & Output 06/17 1600 06/17 0800 06/17 0000 06/16 1600 06/16 0800 06/16 0000 Intake Total 120 5 375 480 110 700 Output Total 750 950 300 450 Balance -630 5 -575 180 110 250 Intake, Blood 350 Product Intake, IV 10 Intake, Oral 120 5 375 480 100 350 Number 0 0 1 Bowel Movements Output, Urine 750 950 300 450 Patient 186 lb 184 lb Weight Weight Bed scale Measurement Method Physical Exam: General: WD/WN female in NAD; alert and oriented x 3 Neck: no JVD, no carotid bruit Heart: RRR with 2/6 systolic murmur Lungs: clear bilaterally Abdomen: soft, obese, NT, +ve bowel sounds Extremities: no edema Assessment/Plan Assessment/Plan * This patient had shortness of breath that was likely multifactorial and due to a combination of anemia, uncontrolled hypertension and a cough with wheezing. Although her blood pressure is better controlled and her URI is improved she does continue to have anemia. Consider Mycoplasma pneumoniae as this is associated with hyponatremia. I do not think this patient has any current CHF and I would be reluctant to overdiurse this patient in the setting of her worsening renal function. I suspect that the renal insufficiency is due to longstanding hypertension. . * In regard to the patient's renal insufficiency and hypertension I would continue hydralazine 25mg TID and titrate up as necessary to decrease afterload and lower blood pressure. Continue Labetolol 200mg BID. Add a NTG patch at 0.4mg /hour to decreased pre-load. No diuretic for now although it will likely be helpful once the patient's creatinine returns to her baseline. A fluid restriction is reasonable considering her low sodium. * I suspect that this patient has anemia related to her renal dysfunction. Her reticulocyte count is inappropriately low for the degree of anemia she has and may be related to her renal dysfunction. No definite evidence of bleeding on endoscopy. Continue telemetry? No
[2017-06-17 22:40] VITALS: BP 172/76
[2017-06-18 00:06] VITALS: BP 130/78
[2017-06-18 06:56] VITALS: BP 126/76
--- NOTE | 2017-06-18 07:12 | PN- Housestaff ---
Ricarda CASH,[facility] 06/18/17 0712: Subjective Follow-up For: CHF Anemia Hyponatremia CKD Tele-Events Since Last Visit: NSR HR 50s-60s Subjective: Was seen and examined at bedside. She is resting comfortably. She had no acute events overnight. She denies improving however she believes that her facial edema has improved significantly. She denies any chest pain, shortness of breath, nausea, vomiting, fever, chills. Review of Systems Constitutional: Denies: chills, fever. EENTM: Reports: no symptoms. Cardiovascular: Reports: edema (facial), peripheral edema. Respiratory: Denies: orthopnea, short of breath. Gastrointestinal: Reports: no symptoms. Genitourinary: Reports: no symptoms. Musculoskeletal: Reports: no symptoms. Skin: Reports: no symptoms. Objective Last 24 Hrs of Vital Signs/I&O Vital Signs Date Time Temp Pulse Resp B/P B/P Pulse O2 O2 Flow FiO2 Mean Ox Delivery Rate 06/18 0656 97.8 63 19 126/76 95 06/18 0006 130/78 06/18 0000 Room Air 06/17 2240 97.4 60 18 172/76 94 06/17 2042 70 122/76 06/17 2042 70 122/76 06/17 1530 78 142/80 06/17 1455 97.9 78 20 142/80 96 Room Air 06/17 0750 69 132/64 06/17 0750 69 132/64 Intake & Output 06/18 0800 06/18 0000 06/17 1600 Intake Total 120 120 120 Output Total 500 1000 750 Balance -380 880 -630 Intake, Oral 120 120 120 Output, Urine 500 1000 750 Patient 187 lb Weight Physical Exam General Appearance: Alert, Oriented X3, Cooperative, No Acute Distress Skin Temp/Moisture Exam: Warm/Dry Sepsis Skin Exam (color): Normal for Ethnicity HEENT: facial swelling Cardiovascular: Regular Rate, Normal S1, Normal S2, systolic murmur Lungs: Clear to Auscultation, Normal Air Movement Abdomen: Normal Bowel Sounds, Soft, No Tenderness Neurological: Normal Speech, Normal Tone, Sensation Intact Extremities: trace BLE edema Current Medications: Current Medications Sig/Nai Start time Last Medication Dose Route Stop Time Status Admin Acetaminophen 500 MG .STK-MED ONE 06/17 1024 DC PO 06/17 1025 Acetaminophen 650 MG .STK-MED ONE 06/17 1022 DC PO 06/17 1023 Acetaminophen 500 MG Q6P PRN 06/12 1545 AC 06/17 PO 1026 Azithromycin 500 MG DAILY 06/14 1445 DC / PO 06/17 1001 0750 Benzonatate 100 MG TID / 1000 AC 06/17 PO 2042 Diclofenac Sodium 1 APOLINAR 4 TIMES/DAY PRN 06/17 1330 AC 06/17 TOP 1530 Ferrous Sulfate 325 MG 1400 / 1400 AC 06/17 PO 1530 Furosemide 40 MG DAILY 06/14 1500 AC 06/17 PO 0750 Guaifenesin/Codeine 10 ML Q4P PRN 06/13 0245 AC 06/13 Phosphate PO 1109 Heparin Sodium 5,000 UNIT Q8 06/17 2200 AC 06/18 (Porcine) SC 0611 Hydralazine HCl 25 MG TID 06/14 2200 AC 06/17 PO 2042 Labetalol HCl 200 MG BID 06/14 2200 AC 06/17 PO 2042 Levothyroxine Sodium 0.088 MG DAILY AC 06/15 0700 AC 06/18 PO 0611 Lidocaine 2 APOLINAR .STK-MED ONE 06/17 1344 DC TOP 06/17 1345 Lidocaine 50 ML .STK-MED ONE 06/17 1344 DC TOP 06/17 1345 Lidocaine 1 PAT Q24H 06/12 1535 DC 06/16 EXT 1659 Nitroglycerin 0.4 MG Q24H 06/12 1600 AC 06/17 TOP 1530 Non-Formulary 1 UNIT 0730,1130,1630 06/13 1630 AC 06/15 Medication ANY 0800 Ondansetron HCl 4 MG Q6P PRN 06/13 1630 AC 06/16 IV 1024 Pantoprazole Sodium 40 MG DAILY 06/15 1425 AC 06/17 IV 0754 Polyethylene Glycol 17 GM DAILY PRN 06/14 1645 AC 06/18 PO 0611 Tramadol HCl 25 MG Q12P PRN 06/17 0115 AC PO Last 24 Hrs of Lab/Kade Results Last 24 Hrs of Labs/Mics: Laboratory Tests 06/18/17 0649: Cortisol AM Sample Pending 06/18/17 0649: Sodium Pending, Potassium Pending, Chloride Pending, Carbon Dioxide Pending, Anion Gap Pending, BUN Pending, Creatinine Pending, BUN/Creatinine Ratio Pending , CBC w Diff Pending, WBC Pending, RBC Pending, Hgb Pending, Hct Pending, MCV Pending, MCH Pending, MCHC Pending, RDW Pending, Plt Count Pending, MPV Pending Assessment/Plan Assessment: Patient is a 72-year-old female with a PMH significant for hypertension, hypothyroidism who presented complaining of shortness of breath #Multifactorial shortness of breath with anemia, CHF, with symptoms suggestive of viral URI -Completed course of azithromycin and prednisone -Continue symptomatic treatment for cough -Continue Lasix -Cardiology recommendations appreciated #Anemia Patient had Hemoccult positive dark stools, EGD showed gastropathy -Patient will require outpatient follow-up with GI -Continue iron supplementation and Protonix -Monitor for active signs of rebleeding -Trend H&H and transfuse as needed #Hyponatremia Improving -Continue fluid restriction #Chronic medical problems -Continue home medications Diet: Heart healthy DVT prophylaxis: subcutaneous heparin, Alps CODE STATUS: Full code Problem List: 1. CKD (chronic kidney disease) 2. Anemia 3. Hyponatremia 4. CHF (congestive heart failure) Pain Ratin Pain Location: none Pain Goal: Remain pain free Pain Plan: pain pathway Tomorrow's Labs & Rationales: cbc, bep Ralph Peres MD 06/18/17 1126: Attending MD Review Statement Attending Statement Attending MD Statement: examined this patient, discuss w/resident/PA/MANAGER CASE MANAGEMENT, agreed w/resident/PA/MANAGER CASE MANAGEMENT, reviewed EMR data (avail) Attending Assessment/Plan: 72F PMH HTN, hypothyroidism, CKD stage 4 presenting with several days of progressive shortness of breath, with mild bilateral leg swelling and pulmonary vascular congestion on CXR, found to have new onset CHF, also with weakness and cough consistent with viral syndrome. Looks much better today and feels well. Still a bit weak but better. Ambulating with walker. Over the weekend had dark stool and went for EGD which showed only mild gastropathy. Renal function steady, sodium improving. 1. New onset acute CHF 2. Dyspnea on exertion 3. CKD Stage 4 4. Viral syndrome Plan - Continue on telemetry - Continue Azithromycin - CT abdomen/pelvis today to rule out obstruction - Monitor electrolytes and renal function - Cardiology and nephrology consults - Continue Labetalol - DVT PPx - Anticipated discharge tomorrow. Send CMR to pharmacy for review.
[2017-06-18 07:55] LABS: ABSOLUTE BASOPHIL COUNT 0 /CUMM (0.0-0.2); ABSOLUTE EOSINOPHIL COUNT 0.2 /CUMM (0.0-0.7); ABSOLUTE GRANULOCYTE CT 4.3 /CUMM (1.4-6.5); ABSOLUTE MONOCYTE COUNT 0.4 /CUMM (0.10-0.60); BASOPHIL % 0.8 % (0.0-2.0); EOSINOPHIL % 3.8 % (0-5); GRANULOCYTE % 71.6 % (42.2-75.2); MEAN CORPUSCULAR HGB 30.6 PG (27.0-31.0); MEAN CORPUSCULAR VOLUME 89.9 FL (81.0-99.0); MEAN PLATELET VOLUME 7.1 FL (7.4-10.4); PLATELET COUNT 269 /CUMM (130-400); RBC DISTRIBUTION WIDTH 14.1 % (11.5-14.5); RED BLOOD CELL CT 3.01 /CUMM (4.20-5.40)
--- NOTE | 2017-06-18 10:41 | PN- Nephrology ---
Assessment/Plan Nephrology Assessment: 1. REGULO: stable - suspect prerenal due to diuresis in setting pulm dx; needs obstruction R kidney & occult paraprotein excluded. Doubt NSAID gel playing role but would d/c. Favor trial volume expansion. 2. CKD: due to presumed HTN nephrosclerosis; can't exclude chronic GN w proteinuria & would send screening serologic w/u 3. Hyponatremia: improving w po fluid restriction Suggestion: 1. CT kidney w/o IV contrast - r/o R obstruction 2. SPEP 3. HepB & C serologies 4. KIMMIE, C3, C4 5. ANCA 6. IV NS 50 ml/hr x 1 liter 7. d/c Voltaren gel Subjective Subjective: SOB & cough improved No uremic sx Making urine Objective Vital Signs and I&Os Vital Signs Date Time Temp Pulse Resp B/P B/P Pulse O2 O2 Flow FiO2 Mean Ox Delivery Rate 06/18 940 97.8 63 19 126/76 06/18 0941 97.8 63 19 126/76 06/18 0656 97.8 63 19 126/76 95 06/18 0006 130/78 06/18 0000 Room Air 06/17 2240 97.4 60 18 172/76 94 06/17 2042 70 122/76 06/17 2042 70 122/76 06/17 1530 78 142/80 06/17 1455 97.9 78 20 142/80 96 Room Air Intake & Output 06/18 1600 06/18 0400 06/17 1600 06/17 0400 06/16 1600 06/16 0400 Intake Total 120 120 125 375 590 700 Output Total 500 1000 750 950 300 450 Balance -380 -880 -625 -575 290 250 Intake, Blood 350 Product Intake, IV 10 Intake, Oral 120 120 125 375 580 350 Number 0 0 1 Bowel Movements Output, Urine 500 1000 750 950 300 450 Patient 187 lb 186 lb 184 lb Weight Weight Bed scale Measurement Method Physical Exam General Appearance: no apparent distress, alert Head: atraumatic, normal appearance Ears, Nose, Throat: normal ENT inspection Neck: normal inspection Respiratory: no respiratory distress, quiet respiration, occ expir rhonchi - no rales Cardiovascular: regular rate/rhythm Abdomen: soft, non-tender, no organomegaly Extremities: no edema Neurologic/Psychiatric: no motor/sensory deficits, awake, alert, director corporate sales II-XII nml as tested Lymphatic: no anterior cervical jason Current Medications: Current Medications Sig/Nai Start time Last Medication Dose Route Stop Time Status Admin Acetaminophen 500 MG Q6P PRN 06/12 1545 AC 06/17 PO 1026 Benzonatate 100 MG TID / 1000 AC 06/18 PO 0941 Diclofenac Sodium 1 APOLINAR 4 TIMES/DAY PRN 06/17 1330 AC 06/17 TOP 1530 Ferrous Sulfate 325 MG 1400 / 1400 AC 06/17 PO 1530 Furosemide 40 MG DAILY / 1500 DC 06/17 PO 0750 Guaifenesin/Codeine 10 ML Q4P PRN 06/13 0245 AC 06/13 Phosphate PO 1109 Heparin Sodium 5,000 UNIT Q8 06/17 2200 AC 06/18 (Porcine) SC 0611 Hydralazine HCl 25 MG TID 06/14 2200 AC 06/18 PO 0941 Labetalol HCl 200 MG BID 06/14 2200 AC 06/18 PO 0941 Levothyroxine Sodium 0.088 MG DAILY AC 06/15 0700 AC 06/18 PO 0611 Lidocaine 2 APOLINAR .STK-MED ONE 06/17 1344 DC TOP 06/17 1345 Lidocaine 50 ML .STK-MED ONE 06/17 1344 DC TOP 06/17 1345 Lidocaine 1 PAT Q24H 06/12 1535 DC 06/16 EXT 1659 Nitroglycerin 0.4 MG Q24H / 1600 AC 06/17 TOP 1530 Non-Formulary 1 UNIT 0730,1130,1630 06/13 1630 AC 06/15 Medication ANY 0800 Ondansetron HCl 4 MG Q6P PRN 06/13 1630 AC 06/16 IV 1024 Pantoprazole Sodium 40 MG DAILY 06/15 1425 AC 06/18 IV 0941 Polyethylene Glycol 17 GM DAILY PRN 06/14 1645 AC 06/18 PO 0611 Tramadol HCl 25 MG Q12P PRN 06/17 0115 AC PO Results Pertinent Lab Results: Laboratory Tests 06/18 06/18 0649 0649 Chemistry Sodium (137 - 145 mmol/L) 131 L Potassium (3.5 - 5.1 mmol/L) 5.0 Chloride (98 - 107 mmol/L) 102 Carbon Dioxide (22 - 30 mmol/L) 18 L Anion Gap (5 - 16) 11 BUN (7 - 17 mg/dL) 38 H Creatinine (0.5 - 1.0 mg/dL) 2.9 H Estimated GFR (>60 ml/min) 16 L BUN/Creatinine Ratio (7 - 25 %) 13.1 Cortisol AM Sample (4.46 - 22.7 ug/dL) Cancelled Pending Hematology CBC w Diff NO MAN DIFF REQ WBC (4.8 - 10.8 /CUMM) 6.0 RBC (4.20 - 5.40 /CUMM) 3.01 L Hgb (12.0 - 16.0 G/DL) 9.2 L Hct (37 - 47 %) 27.0 L MCV (81.0 - 99.0 FL) 89.9 MCH (27.0 - 31.0 PG) 30.6 MCHC (33.0 - 37.0 G/DL) 34.0 RDW (11.5 - 14.5 %) 14.1 Plt Count (130 - 400 /CUMM) 269 MPV (7.4 - 10.4 FL) 7.1 L Gran % (42.2 - 75.2 %) 71.6 Lymphocytes % (20.5 - 51.1 %) 16.5 L Monocytes % (1.7 - 9.3 %) 7.3 Eosinophils % (0 - 5 %) 3.8 Basophils % (0.0 - 2.0 %) 0.8 Absolute Granulocytes (1.4 - 6.5 /CUMM) 4.3 Absolute Lymphocytes (1.2 - 3.4 /CUMM) 1.0 L Absolute Monocytes (0.10 - 0.60 /CUMM) 0.4 Absolute Eosinophils (0.0 - 0.7 /CUMM) 0.2 Absolute Basophils (0.0 - 0.2 /CUMM) 0 06/17 06/16 0639 0611 Chemistry Sodium (137 - 145 mmol/L) 127 L 122 L Potassium (3.5 - 5.1 mmol/L) 5.3 H 5.1 Chloride (98 - 107 mmol/L) 100 97 L Carbon Dioxide (22 - 30 mmol/L) 17 L 17 L Anion Gap (5 - 16) 10 9 BUN (7 - 17 mg/dL) 40 H 40 H Creatinine (0.5 - 1.0 mg/dL) 2.9 H 2.6 H Estimated GFR (>60 ml/min) 16 L 18 L BUN/Creatinine Ratio (7 - 25 %) 13.8 15.4 Hematology CBC w Diff NO MAN DIFF REQ NO MAN DIFF REQ WBC (4.8 - 10.8 /CUMM) 6.4 5.6 RBC (4.20 - 5.40 /CUMM) 2.98 L 2.85 L Hgb (12.0 - 16.0 G/DL) 9.0 L 8.7 L Hct (37 - 47 %) 26.7 L 25.4 L MCV (81.0 - 99.0 FL) 89.8 89.2 MCH (27.0 - 31.0 PG) 30.4 30.5 MCHC (33.0 - 37.0 G/DL) 33.8 34.2 RDW (11.5 - 14.5 %) 14.3 14.1 Plt Count (130 - 400 /CUMM) 252 232 MPV (7.4 - 10.4 FL) 7.2 L 7.6 Gran % (42.2 - 75.2 %) 74.1 72.3 Lymphocytes % (20.5 - 51.1 %) 14.3 L 18.1 L Monocytes % (1.7 - 9.3 %) 7.3 8.6 Eosinophils % (0 - 5 %) 3.8 0.8 Basophils % (0.0 - 2.0 %) 0.5 0.2 Absolute Granulocytes (1.4 - 6.5 /CUMM) 4.7 4.1 Absolute Lymphocytes (1.2 - 3.4 /CUMM) 0.9 L 1.0 L Absolute Monocytes (0.10 - 0.60 /CUMM) 0.5 0.5 Absolute Eosinophils (0.0 - 0.7 /CUMM) 0.2 0 Absolute Basophils (0.0 - 0.2 /CUMM) 0 0 06/16 06/15 0030 1800 Chemistry Sodium (137 - 145 mmol/L) 121 L Cancelled Potassium (3.5 - 5.1 mmol/L) 5.2 H Cancelled Chloride (98 - 107 mmol/L) 96 L Cancelled Carbon Dioxide (22 - 30 mmol/L) 17 L Cancelled Anion Gap (5 - 16) 9 Cancelled BUN (7 - 17 mg/dL) 40 H Cancelled Creatinine (0.5 - 1.0 mg/dL) 2.8 H Cancelled Estimated GFR (>60 ml/min) 17 L BUN/Creatinine Ratio (7 - 25 %) 14.3 Cancelled Coagulation PT (9.4 - 12.5 SEC) 11.3 Cancelled INR (0.90 - 1.19) 1.04 Cancelled Hematology CBC w Diff NO MAN DIFF REQ WBC (4.8 - 10.8 /CUMM) 5.4 RBC (4.20 - 5.40 /CUMM) 2.95 L Hgb (12.0 - 16.0 G/DL) 8.9 L Hct (37 - 47 %) 26.1 L MCV (81.0 - 99.0 FL) 88.6 MCH (27.0 - 31.0 PG) 30.0 MCHC (33.0 - 37.0 G/DL) 33.9 RDW (11.5 - 14.5 %) 13.6 Plt Count (130 - 400 /CUMM) 254 MPV (7.4 - 10.4 FL) 7.3 L Gran % (42.2 - 75.2 %) 82.8 H Lymphocytes % (20.5 - 51.1 %) 11.9 L Monocytes % (1.7 - 9.3 %) 5.0 Eosinophils % (0 - 5 %) 0.1 Basophils % (0.0 - 2.0 %) 0.2 Absolute Granulocytes (1.4 - 6.5 /CUMM) 4.5 Absolute Lymphocytes (1.2 - 3.4 /CUMM) 0.6 L Absolute Monocytes (0.10 - 0.60 /CUMM) 0.3 Absolute Eosinophils (0.0 - 0.7 /CUMM) 0 Absolute Basophils (0.0 - 0.2 /CUMM) 0 24 hr urine prot 2.7 grams Imaging/Other Studies: Renal US: RIGHT KIDNEY: 10.1 x 4.4 x 4.7 cm (SAG x AP x TRV). The kidney demonstrates diffuse cortical thinning and increased echogenicity. There is mild fullness of the right renal pelvis and some renal pyramids. No gross renal calculi identified. LEFT KIDNEY: 9.6 x 4.3 x 4.6 cm (SAG x AP x TRV). The kidney demonstrates diffuse cortical thinning and increased echogenicity. 1.1 cm upper pole cyst. No renal calculi or hydronephrosis. CXR: There is diffuse prominence of the background interstitium with slight interval improvement compared with prior in keeping with interstitial edema. There are low lung volumes. There is no large volume of pleural fluid. The heart is mildly enlarged but unchanged. There is no dense consolidation or pneumothorax.
--- NOTE | 2017-06-18 13:43 | CT SCAN REPORT ---
EXAMINATION: CT ABDOMEN AND PELVIS WITHOUT CONTRAST CLINICAL INFORMATION: Concerning ultrasound renal finding of right renal pelvis. Mild fullness in the setting of acute kidney insufficiency. Rule out right kidney obstruction. COMPARISON: Renal ultrasound dated 06/14/2017, 06/11/2017, and 08/28/2013. Abdominal ultrasound dated 02/28/2015 TECHNIQUE: Multidetector volumetric imaging was performed from the superior aspect of the liver through the pubic symphysis. Sagittal and coronal reformatted images were obtained on the technologist workstation. DLP: 436.65 mGy-cm. FINDINGS: LUNG BASES: Small bilateral pleural effusions is seen with associated atelectatic changes in the lower lobes, right greater than left. There is also mild atelectasis in the lingula and right middle lobe. The cardiac silhouette appears enlarged with enlargement of the left ventricle and left atrium seen. LIVER, GALLBLADDER, AND BILIARY TREE: The liver is normal in size, shape, and attenuation. No focal hepatic lesion on noncontrast imaging. No biliary ductal dilatation is present. The gallbladder is unremarkable with no evidence of radiopaque gallstones, gallbladder wall thickening, or obvious pericholecystic inflammatory changes. PANCREAS: Unremarkable on noncontrast imaging. SPLEEN: Unremarkable. ADRENAL GLANDS: Unremarkable on noncontrast imaging. KIDNEYS AND URETERS: The kidneys bilaterally are atrophic with cortical thinning seen. No hydronephrosis, hydroureter, or calculi seen. No perinephric stranding. There is a partially exophytic 1.1 cm low-attenuation mass in the mid left kidney, corresponding to the simple renal cyst seen on renal ultrasound from 06/11/2017, labeled as lower pole. The kidneys are otherwise unremarkable. No significant hydronephrosis, nephrolithiasis or perinephric stranding is seen. The ureters bilaterally are decompressed and unremarkable. BLADDER: Unremarkable. PELVIC VISCERA: Unremarkable. GASTROINTESTINAL TRACT: The small and large bowel are unremarkable. The appendix is unremarkable. ABDOMINAL WALL: There is a small fat-containing umbilical hernia. In the right mid flank series 2, image 61), a small ovoid density is seen, most likely an injection granuloma. LYMPH NODES, VASCULAR: No adenopathy in the abdomen or pelvis. Abdominal aorta normal in caliber with mild atherosclerotic vascular calcification seen. OSSEOUS STRUCTURES: Moderate vertebral spondylosis in lower thoracic and in mid and lower lumbar spine. Mild facet arthropathy in lower lumbar spine. IMPRESSION: 1. Bilaterally atrophic kidneys, consistent with patient's history of chronic kidney insufficiency. No evidence of hydronephrosis or hydroureter seen. 2. Simple cyst in the lower pole of the left kidney. No suspicious renal masses. 3. Small bilateral pleural effusions with associated bibasilar atelectatic changes. 4. Left heart enlargement is suspected on the images of the heart included in the lower chest. Clinical correlation requested. 5. Small fat-containing umbilical hernia. 6. Mild atherosclerotic vascular disease.
[2017-06-18 14:30] VITALS: BP 132/64
[2017-06-18 22:44] VITALS: BP 132/72
--- NOTE | 2017-06-19 07:10 | PN- Housestaff ---
Ricarda CASH,Harvey 06/19/17 0709: Subjective Follow-up For: viral bronchitis chf exacerbation Tele-Events Since Last Visit: NSR HR 60-70s Review of Systems Constitutional: Reports: no symptoms. EENTM: Reports: no symptoms. Cardiovascular: Reports: peripheral edema. Respiratory: Reports: no symptoms. Gastrointestinal: Reports: no symptoms. Genitourinary: Reports: no symptoms. Musculoskeletal: Reports: no symptoms. Skin: Reports: no symptoms. Objective Last 24 Hrs of Vital Signs/I&O Vital Signs Date Time Temp Pulse Resp B/P B/P Pulse O2 O2 Flow FiO2 Mean Ox Delivery Rate 06/18 2244 97.7 72 20 132/72 95 Room Air 06/18 2144 97.7 72 20 132/72 06/18 2144 97.7 72 20 132/72 06/18 1650 97.9 73 20 132/64 06/18 1430 97.9 73 20 132/64 96 Room Air 06/18 0941 97.8 63 19 126/76 06/18 0941 97.8 63 19 126/76 06/18 0800 Room Air Intake & Output 06/19 0800 06/19 0000 06/18 1600 Intake Total 580 600 Output Total 300 300 Balance 280 300 Intake, IV 400 Intake, Oral 180 600 Output, Urine 300 300 Patient 182 lb Weight Weight Bed scale Measurement Method Physical Exam General Appearance: Alert, Oriented X3, Cooperative, No Acute Distress Skin Temp/Moisture Exam: Warm/Dry Cardiovascular: Regular Rate, Normal S1, Normal S2 Lungs: diminished breath sounds at the bases Abdomen: Normal Bowel Sounds, Soft, No Tenderness Neurological: Normal Speech, Normal Tone, Sensation Intact Extremities: trace distal BLE edema Current Medications: Current Medications Sig/Nai Start time Last Medication Dose Route Stop Time Status Admin Acetaminophen 500 MG .STK-MED ONE 06/18 1451 DC PO 06/18 1452 Acetaminophen 500 MG Q6P PRN 06/12 1545 AC 06/18 PO 1455 Benzonatate 100 MG TID 06/13 1000 AC 06/18 PO 2143 Diclofenac Sodium 1 APOLINAR 4 TIMES/DAY PRN 06/17 1330 DC 06/17 TOP 1530 Ferrous Sulfate 325 MG 1400 / 1400 AC 06/18 PO 1455 Furosemide 40 MG DAILY 06/14 1500 DC 06/17 PO 0750 Guaifenesin/Codeine 10 ML Q4P PRN 06/13 0245 AC 06/13 Phosphate PO 1109 Heparin Sodium 5,000 UNIT Q8 06/17 2200 AC 06/19 (Porcine) SC 0549 Hydralazine HCl 25 MG TID 06/14 220 AC 06/18 PO 2144 Labetalol HCl 200 MG BID 06/14 220 AC 06/18 PO 2144 Levothyroxine Sodium 0.088 MG DAILY AC 06/15 0700 AC 06/19 PO 0549 Nitroglycerin 0.4 MG Q24H 06/12 1600 AC 06/18 TOP 1650 Non-Formulary 1 UNIT 0730,1130,1630 06/13 1630 AC 06/15 Medication ANY 0800 Ondansetron HCl 4 MG Q6P PRN 06/13 1630 AC 06/16 IV 1024 Pantoprazole Sodium 40 MG DAILY 06/15 1425 AC 06/18 IV 0941 Polyethylene Glycol 17 GM DAILY PRN 06/14 1645 AC 06/18 PO 0611 Sodium Chloride 1,000 ML Q20H 06/18 1145 AC 06/18 IV 06/19 0744 1302 Tramadol HCl 25 MG Q12P PRN 06/17 0115 AC PO Last 24 Hrs of Lab/Kade Results Last 24 Hrs of Labs/Mics: Laboratory Tests 06/18/17 1210: KIMMIE Titer Pending, Anti-Nuclear Antibody Pending 06/18/17 1210: Prot Electrophoresis Pending, Total Protein (PEP) Pending, Albumin % (PEP) Pending, Ycupm-[id number] Pending, Lvdjr-0-Nrxebatxj Pending, Yamh-9-Cwwugykk Pending, Olhv-6-Iecpjxca Pending, Gamma Globulins Pending, Abnorm Protein Band 1 Pending, Abnorm Protein Band 2 Pending, Abnorm Protein Band 3 Pending, ANCA Pending, Complement C3 Pending, Complement C4 Pending, Hepatitis A IgM Ab NONREACTIVE, Hep Bs Antigen NONREACTIVE, Hep B Core IgM Ab Conf NONREACTIVE, Hepatitis C Antibody NONREACTIVE Orders Radiology Findings: LUNG BASES: Small bilateral pleural effusions is seen with associated atelectatic changes in the lower lobes, right greater than left. There is also mild atelectasis in the lingula and right middle lobe. The cardiac silhouette appears enlarged with enlargement of the left ventricle and left atrium seen. LIVER, GALLBLADDER, AND BILIARY TREE: The liver is normal in size, shape, and attenuation. No focal hepatic lesion on noncontrast imaging. No biliary ductal dilatation is present. The gallbladder is unremarkable with no evidence of radiopaque gallstones, gallbladder wall thickening, or obvious pericholecystic inflammatory changes. PANCREAS: Unremarkable on noncontrast imaging. SPLEEN: Unremarkable. ADRENAL GLANDS: Unremarkable on noncontrast imaging. KIDNEYS AND URETERS: The kidneys bilaterally are atrophic with cortical thinning seen. No hydronephrosis, hydroureter, or calculi seen. No perinephric stranding. There is a partially exophytic 1.1 cm low-attenuation mass in the mid left kidney, corresponding to the simple renal cyst seen on renal ultrasound from 06/11/2017, labeled as lower pole. The kidneys are otherwise unremarkable. No significant hydronephrosis, nephrolithiasis or perinephric stranding is seen. The ureters bilaterally are decompressed and unremarkable. BLADDER: Unremarkable. PELVIC VISCERA: Unremarkable. GASTROINTESTINAL TRACT: The small and large bowel are unremarkable. The appendix is unremarkable. ABDOMINAL WALL: There is a small fat-containing umbilical hernia. In the right mid flank series 2, image 61), a small ovoid density is seen, most likely an injection granuloma. LYMPH NODES, VASCULAR: No adenopathy in the abdomen or pelvis. Abdominal aorta normal in caliber with mild atherosclerotic vascular calcification seen. OSSEOUS STRUCTURES: Moderate vertebral spondylosis in lower thoracic and in mid and lower lumbar spine. Mild facet arthropathy in lower lumbar spine. IMPRESSION: 1. Bilaterally atrophic kidneys, consistent with patient's history of chronic kidney insufficiency. No evidence of hydronephrosis or hydroureter seen. 2. Simple cyst in the lower pole of the left kidney. No suspicious renal masses. 3. Small bilateral pleural effusions with associated bibasilar atelectatic changes. 4. Left heart enlargement is suspected on the images of the heart included in the lower chest. Clinical correlation requested. 5. Small fat-containing umbilical hernia. 6. Mild atherosclerotic vascular disease. Assessment/Plan Assessment: Patient is a 72-year-old female with a PMH significant for hypertension, hypothyroidism who presented complaining of shortness of breath. 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 Viral respiratory infection 2. CKD (chronic kidney disease) 3. Hyponatremia Pain Ratin Pain Location: none Pain Goal: Remain pain free Pain Plan: pain pathway Tomorrow's Labs & Rationales: none Ralph Peres MD 06/19/17 1026: Attending MD Review Statement Attending Statement Attending MD Statement: examined this patient, discuss w/resident/PA/WOOL MIXER, agreed w/resident/PA/WOOL MIXER, reviewed EMR data (avail) Attending Assessment/Plan: 72F PMH HTN, hypothyroidism, CKD stage 4 presenting with several days of progressive shortness of breath, with mild bilateral leg swelling and pulmonary vascular congestion on CXR, found to have new onset CHF, also with weakness and cough consistent with viral syndrome. Looks much better today and feels well. Still a bit weak but better. Ambulating with walker. Over the weekend had dark stool and went for EGD which showed only mild gastropathy. Renal function steady, sodium improving. 1. New onset acute CHF 2. Dyspnea on exertion 3. CKD Stage 4 4. Viral syndrome Plan - Stable for discharge home - Continue Azithromycin - Outpatient nephrology and cardiology follow up
[2017-06-19 07:28] VITALS: BP 128/72
[2017-06-19 08:38] VITALS: BP 128/72
--- NOTE | 2017-06-19 09:36 | PN- Nephrology ---
Assessment/Plan Nephrology Assessment: 1. REGULO: suspect prerenal due to diuresis in setting pulm dx No obstruction by CT Exclude occult paraprotein --> SPEP pending 2. CKD: severe, stage 4; due to presumed HTN nephrosclerosis Can't exclude chronic GN w proteinuria --> screening serologic w/u pending 3. Hyponatremia: improving w po fluid restriction Suggestion: 1. d/c further IV NS 2. recheck renal function --> if stable OK for d/c w outpt f/u Dr Nicholson Subjective Subjective: No SOB; lying flat w/o orthopnea No uremic sx Cough gone Objective Vital Signs and I&Os Vital Signs Date Time Temp Pulse Resp B/P B/P Pulse O2 O2 Flow FiO2 Mean Ox Delivery Rate 06/19 0838 71 128/72 06/19 0837 71 128/72 06/19 0800 97 Room Air Room Air 06/19 0728 97.8 71 20 128/72 97 06/18 2244 97.7 72 20 132/72 95 Room Air 06/18 2144 97.7 72 20 132/72 06/18 2144 97.7 72 20 132/72 06/18 1650 97.9 73 20 132/64 06/18 1430 97.9 73 20 132/64 96 Room Air 06/18 0941 97.8 63 19 126/76 06/18 0941 97.8 63 19 126/76 Intake & Output 06/19 1600 06/19 0400 06/18 1600 06/18 0400 06/17 1600 06/17 0400 Intake Total 900 580 720 120 125 375 Output Total 300 806 979 8662 750 950 Balance 600 280 -80 -880 -625 -575 Intake, IV 400 400 Intake, Oral 500 180 720 120 125 375 Number 0 Bowel Movements Output, Urine 300 760 141 5553 750 950 Patient 182 lb 187 lb 186 lb Weight Weight Bed scale Bed scale Measurement Method Physical Exam General Appearance: well developed/nourished, no apparent distress Head: atraumatic, normal appearance Ears, Nose, Throat: normal ENT inspection Neck: normal inspection Respiratory: normal breath sounds, quiet respiration, lungs clear Cardiovascular: regular rate/rhythm, edema (none) Abdomen: soft, non-tender Extremities: no edema Neurologic/Psychiatric: awake, alert Skin: normal color, warm/dry Lymphatic: no anterior cervical jason Current Medications: Current Medications Sig/Nai Start time Last Medication Dose Route Stop Time Status Admin Acetaminophen 500 MG .STK-MED ONE 06/18 1451 DC PO 06/18 1452 Acetaminophen 500 MG Q6P PRN 06/12 1545 AC 06/18 PO 1455 Benzonatate 100 MG TID 06/13 1000 AC 06/19 PO 0837 Diclofenac Sodium 1 APOLINAR 4 TIMES/DAY PRN 06/17 1330 DC 06/17 TOP 1530 Ferrous Sulfate 325 MG 1400 06/12 1400 AC 06/19 PO 0837 Guaifenesin/Codeine 10 ML Q4P PRN 06/13 0245 AC 06/13 Phosphate PO 1109 Heparin Sodium 5,000 UNIT Q8 06/17 2200 AC 06/19 (Porcine) SC 0549 Hydralazine HCl 25 MG TID 06/14 2200 AC 06/19 PO 0838 Labetalol HCl 200 MG BID 06/14 2200 AC 06/19 PO 0837 Levothyroxine Sodium 0.088 MG DAILY AC 06/15 0700 AC 06/19 PO 0549 Nitroglycerin 0.4 MG Q24H 06/12 1600 AC 06/18 TOP 1650 Non-Formulary 1 UNIT 0730,1130,1630 06/13 1630 AC 06/15 Medication ANY 0800 Ondansetron HCl 4 MG Q6P PRN 06/13 1630 AC 06/16 IV 1024 Pantoprazole Sodium 40 MG DAILY 06/15 1425 AC 06/18 IV 0941 Polyethylene Glycol 17 GM DAILY PRN 06/14 1645 AC 06/18 PO 0611 Sodium Chloride 1,000 ML Q20H 06/18 1145 DC 06/18 IV 06/19 0744 1302 Tramadol HCl 25 MG Q12P PRN 06/17 0115 AC PO Results Pertinent Lab Results: Laboratory Tests 06/18 06/18 06/18 1210 1210 0649 Chemistry Prot Electrophoresis Pending Total Protein (PEP) Pending Albumin % (PEP) Pending Eoxne-7-Yrlpnoptd Pending Pvlmd-4-Vezvpyhoo Pending Fsiw-5-Uznlgysu Pending Dbxk-4-[place] Pending Gamma Globulins Pending Abnorm Protein Band 1 Pending Abnorm Protein Band 2 Pending Abnorm Protein Band 3 Pending Cortisol AM Sample Cancelled Immunology KIMMIE Titer Pending Anti-Nuclear Antibody Pending ANCA Pending Complement C3 Pending Complement C4 Pending Serology Hepatitis A IgM Ab (NONREACTIVE) NONREACTIVE Hep Bs Antigen (NONREACTIVE) NONREACTIVE Hep B Core IgM Ab Conf (NONREACTIVE) NONREACTIVE Hepatitis C Antibody (NONREACTIVE) NONREACTIVE 06/18 06/17 0649 0663 Chemistry Sodium (137 - 145 mmol/L) 131 L 127 L Potassium (3.5 - 5.1 mmol/L) 5.0 5.3 H Chloride (98 - 107 mmol/L) 102 100 Carbon Dioxide (22 - 30 mmol/L) 18 L 17 L Anion Gap (5 - 16) 11 10 BUN (7 - 17 mg/dL) 38 H 40 H Creatinine (0.5 - 1.0 mg/dL) 2.9 H 2.9 H Estimated GFR (>60 ml/min) 16 L 16 L BUN/Creatinine Ratio (7 - 25 %) 13.1 13.8 Cortisol AM Sample (4.46 - 22.7 ug/dL) 26.5 H Hematology CBC w Diff NO MAN DIFF REQ NO MAN DIFF REQ WBC (4.8 - 10.8 /CUMM) 6.0 6.4 RBC (4.20 - 5.40 /CUMM) 3.01 L 2.98 L Hgb (12.0 - 16.0 G/DL) 9.2 L 9.0 L Hct (37 - 47 %) 27.0 L 26.7 L MCV (81.0 - 99.0 FL) 89.9 89.8 MCH (27.0 - 31.0 PG) 30.6 30.4 MCHC (33.0 - 37.0 G/DL) 34.0 33.8 RDW (11.5 - 14.5 %) 14.1 14.3 Plt Count (130 - 400 /CUMM) 269 252 MPV (7.4 - 10.4 FL) 7.1 L 7.2 L Gran % (42.2 - 75.2 %) 71.6 74.1 Lymphocytes % (20.5 - 51.1 %) 16.5 L 14.3 L Monocytes % (1.7 - 9.3 %) 7.3 7.3 Eosinophils % (0 - 5 %) 3.8 3.8 Basophils % (0.0 - 2.0 %) 0.8 0.5 Absolute Granulocytes (1.4 - 6.5 /CUMM) 4.3 4.7 Absolute Lymphocytes (1.2 - 3.4 /CUMM) 1.0 L 0.9 L Absolute Monocytes (0.10 - 0.60 /CUMM) 0.4 0.5 Absolute Eosinophils (0.0 - 0.7 /CUMM) 0.2 0.2 Absolute Basophils (0.0 - 0.2 /CUMM) 0 0 Imaging/Other Studies: CT: KIDNEYS AND URETERS: The kidneys bilaterally are atrophic with cortical thinning seen. No hydronephrosis, hydroureter, or calculi seen. No perinephric stranding. There is a partially exophytic 1.1 cm low-attenuation mass in the mid left kidney, corresponding to the simple renal cyst seen on renal ultrasound from 06/11/2017, labeled as lower pole. The kidneys are otherwise unremarkable. No significant hydronephrosis, nephrolithiasis or perinephric stranding is seen. The ureters bilaterally are decompressed and unremarkable. Echo: 1. Normal EF of 60%. 2. Mild left ventricular hypertrophy. 3. Mild to moderate mitral regurgitation. 4. Mild to moderate tricuspid regurgitation. 5. Mild aortic insufficiency. 6. Trace pulmonic insufficiency.
[2017-06-19] MEDS ORDERED: LABETALOL HCL200 M1 PO (10:50)
[2017-06-19] MEDS ORDERED: FERROUS SULFAT325 M2 PO (10:50)
[2017-06-19] MEDS ORDERED: AZITHROMYCIN500 M3 PO (10:50)
--- NOTE | 2017-06-20 21:09 | Discharge Summary ---
Visit Information Visit Dates Admission Date: 06/11/17 Discharge Date: 06/19/17 Hospital Course Course Attending Physician: Ralph Peres MD Primary Care Physician: Emmie Quintanilla MD Consulting Request: 1 Consulting Specialty: Cardiology Consulting Request: 2 Consulting Specialty: Nephrology Consulting Request: 3 Consulting Specialty: Gastroenterology Hospital Course: 72-year-old female with a past medical history of CKD, hypertension and hypothyroidism presenting for 4 days of shortness of breathl, fall and found to consequently have anemia and electrolyte abnormalities. #SOB secondary to viral syndrome, anemia, uncontrolled hypertension, and acute onset of decompensated CHF which was minor Initial CXR revealed interstitial pulmonary edema with no focal consolidation. Repeat chest x-ray revealed cardiomegaly and signs CHF. ProBNP was elevated at 4520. Echocardiogram revealed LVEF 60% with mild to moderate mitral and tricuspid regurgitation. She was treated with 1 L fluid restriction and Lasix for the CHF. Rapid flu was negative. IV azithromycin and prednisone 20 mg for 3 days were given for her SOB. Tessalon Perles were given for cough. Upon discharge, she was given 1 dose of oral azithromycin to complete a 5 day antibiotic course and to follow up with cardiology. #Anemia with positive guaiac stools Her hemoglobin dropped to 7.4/22.1 during admission. She was given 1 unit PRBC. H/H upon discharge was 9.2/27. Iron studies revealed: Fe 36,TIBC 259, Ferritin 122. B12 >1000. Folate, reticulocyte and haptoglobin were normal. She was treated with ferrous sulfate and protonix. GI was consulted who performed an EGD which revealed mild proximal gastropathy. She was advised to follow-up with GI for outpatient colonoscopy and [facility]. She was discharged with oral iron. #Hyponatremia Initial sodium was 127 and dropped to 122. It slowly improved to 130 upon discharge with fluid restriction. #CKD Stage 4: due to presumed HTN nephrosclerosis Initial presentation 2.3 (2.4 baseline) which slowly worsened to 2.9 upon discharge. Nephrology was consulted. Urine studies: Urine osm 149m, 24 hr total protein 2700. Lipid panel was normal. She was given small IV fluid boluses during this admission. Renal US and CT abd/pelvis ruled out obstruction/ hydronephrosis. #Hypertension The patient was treated with lisinopril, labetalol, nitroglycerin patch, lasix and her home labetalol. Hydralazine was stopped due to her facial edema. Lasix and lisinopril were stopped due to worsening REGULO on CKD. Her home labetalol was increased for 200mg BID. #Fall The patient presented for a fall. Right shoulder XR revealed age-indeterminate cortical irregularity of the lateral scapula near the glenoid, which could be chronic. Most likely this finding is related to her prior fall. Elbow xray revealed no acute findings. She was seen by physical therapy who recommended home PT and OT. #Hyperkalemia Initial K 5.5 and was given 1 dose of kayexalate which improved to 4.7 She was given a low K+ diet and her K+ remained stable around 5.0 during admission. #LUE edema The patient was found to have LUE edema. Doppler ultrasound negative for DVT. Edema improved with diuresis #Facial swelling The patient complained of facial swelling during admission after beggining new antihypertensives. Hydralazine was then stopped as it can cause edema. She was treated with lemon sour cadies for possible parotiditis. #Chronic back pain The pain was improved with palapation. She was treated with heat therapy, tramadol, lidocaine patches and diclofenac gel. The lidocaine patches and diclofenac were then discontinued. She was discharged with home PT as stated above. #History of hypothyroidism TSH was mildly elevated. T4 was normal. Her home levothyroxine was continued during admission. Allergies: Coded Allergies: NO KNOWN ALLERGIES (02/12/12) Significant Procedures: EGD Showed mild proximal gastropathy Echo showed Normal EF of 60%, mild left ventricular hypertrophy, mild to moderate mitral regurgitation, mild to moderate tricuspid regurgitation, mild aortic insufficiency, and trace pulmonic insufficiency. Disposition Summary Disposition Principal Diagnosis: SOB secondary to viral syndrome, anemia, uncontrolled hypertension, and acute onset of minor decompensated CHF Additional Diagnosis: Anemia with positive guaiac stools Hyponatremia CKD stage 4 due to presumed HTN nephrosclerosis HTN Fall Hyperkalemia Left upper extremity edema Facial swelling Chronic back pain Discharge Disposition: home health services Discharge Instructions General Discharge Information Code Status: Full Code Patient's Diet: Heart healthy Patient's Activity: As tolerated 1L fluid restriction Follow-Up Instructions/Appts: Please follow up with your pcp in 1 week. Please follow up with your sorter packer in 1 week. Otherwise you can see Dr. Parr. Please follow up with physical sciences instructor in 1 week. Medications at Discharge Discharge Medications: Stop taking the following medications: Labetalol HCl (Labetalol HCl) 200 MG TABLET ORAL Every Morning Qty = 30 Labetalol HCl (Labetalol HCl) 100 MG TABLET ORAL Every night Qty = 30 Continue taking these medications: Levothyroxine Sodium (Levothyroxine Sodium) 88 MCG TABLET 1 Tablet ORAL DAILY Qty = 30 Comments: Last Taken: 06/19/17 Time: 6:00 AM Start taking the following new medications: Azithromycin (Azithromycin) 500 MG TABLET 1 Tablet ORAL DAILY Qty = 2 No Refills Instructions: . Ferrous Sulfate (Ferrous Sulfate) 325 MG (65 MG IRON) TABLET. 1 Tablet ORAL DAILY Qty = 30 No Refills Instructions: PLEASE TAKE 2 OR MORE HOURS AFTER YOU TAKE YOUR THYROID MEDICINE. Comments: Last Taken: 06/19/17 Time: 8:30 AM Labetalol HCl (Labetalol HCl) 200 MG TABLET 1 Tablet ORAL TWICE DAILY Qty = 60 No Refills Instructions: . Comments: Last Taken: 06/19/17 Time: 8:30 AM Copies To: Dwight CASH,Emmie; Bharat CASH,Jaylen Parr MD PHD,Mendel Vaughn
== END 2017-06-19 11:30 | disposition home health service (06) | DRG 291 ==
LOC: ERH 13:02 → ERHI 17:12 → 1NO 17:12 → ENRESERV 18:15 → ENTRNSPT 19:01 → EDTRNSPT 19:11 → EDTRNSPTSTS 19:11 → 1NO 19:28 → CMPTRNSPT 19:40 → 1NO 06-18 06:48 → ENPENDDIS 06-19 09:36 → ENTRNSPT 06-19 10:48 → EDTRNSPT 06-19 11:01 → EDTRNSPTSTS 06-19 11:01 → CMPTRNSPT 06-19 11:25 → 1NO 06-19 11:30
PROVIDERS: Internal Medicine; Physician Assistant Medical; Student in an Organized Health Care Education/Training Program
PROC: 30233N1 Transfusion of Nonautologous Red Blood Cells into Peripheral Vein, Percutaneous Approach (ICD-10-PCS; principal; 2017-06-15)
PROC: 0DJ08ZZ Inspection of Upper Intestinal Tract, Via Natural or Artificial Opening Endoscopic (ICD-10-PCS; 2017-06-17)
DX: I13.0 Hypertensive heart and chronic kidney disease with heart failure and stage 1 through stage 4 chronic kidney disease, or unspecified chronic kidney disease (principal); J18.9 Pneumonia, unspecified organism; N17.9 Acute kidney failure, unspecified; N18.4 Chronic kidney disease, stage 4 (severe); E87.5 Hyperkalemia; D64.9 Anemia, unspecified; I48.0 Paroxysmal atrial fibrillation; M06.9 Rheumatoid arthritis, unspecified; E87.1 Hypo-osmolality and hyponatremia; R06.02 Shortness of breath; E03.9 Hypothyroidism, unspecified; J20.9 Acute bronchitis, unspecified; W17.89XA Other fall from one level to another, initial encounter; Z96.652 Presence of left artificial knee joint; H26.9 Unspecified cataract; K31.9 Disease of stomach and duodenum, unspecified; I50.9 Heart failure, unspecified
CPT/HCPCS: 1NP; 84133; 84300; 86021; 86160; 36415; 36592; 71045; 71046; 73030-RT; 73080-RT; 74176; 76775; 81001; 82436; 82570; 83010; 84165; 86920; 87804; 87804-59; 88305; 88312; 93005; 93010; 93306; 96374; 96375; 97116-GO; 97161-GP; 99291; J0456; J1644; J1940; J2405; J3490; J7060; P9016